=== PATIENT | female | born 1980 | race Caucasian/White ===

== ENCOUNTER → 2016-12-13 22:10 | Outpatient (CLI) | payer BC, SELFPAY | END | disposition home or self-care (01) | PROVIDERS: Family Provider Family Medicine; PCP Family Medicine; Visit Provider Obstetrics & Gynecology | DX: O47.9 False labor, unspecified (principal) ==

== ENCOUNTER 2017-06-01 20:27 | Emergency (ER) | payer BC, SELFPAY ==
[2017-06-01 20:30] VITALS: BP 126/85; PULSE 109; RESP 16; TEMP 36.6; O2SAT 99; BMI 33.8
--- NOTE | 2017-06-01 22:16 | ED.DCSUM_ITS ---
- ER Visit Summary Date of Service: 06/01/17 Chief Complaint: Right leg wound History of Present Illness: The patient is a 36 F who states that she has a wound on her right leg. It has been there for 3 days. There has been some drainage from it. She denies any significant redness. She has not had a fever. She states that she is currently she is not quite sure how far along she is. No history of abscesses in the past. Physical Examination: Vital signs reviewed. Right leg exam reveals a circular area of crusting and slight serous drainage on the medial right calf. There is no significant surrounding erythema. No lymphangitic streaking. No abscess formation Test Results: None indicated Emergency Department Course and Treatment: This appears to be some impetigo on the right leg. It does not appear to be ringworm there is no central clearing. I will put her on Bactroban topical for this area. She will keep it clean and dry. She sees her physician tomorrow Treatment Plan: [] Disposition: Discharge Impression: Right leg impetigo This note was generated with [employer] dictation software. It may contain incorrect words, spelling, and punctuation that were not noted in review of the chart prior to signing ED Disposition - Plan for ED Patient: Chief Complaint: Wound Referrals: Gagandeep Pendleton MD [Primary Care Provider] -
--- NOTE | 2017-06-01 22:16 | ED.DEP ---
ED Disposition - Plan for ED Patient: Disposition: Home or Assisted Living Chief Complaint: Wound Instructions: Understanding Impetigo (Adult) Prescriptions: Mupirocin [Bactroban] 1 applic TOPICAL TID #1 tube Referrals: Gagandeep Pendleton MD [Primary Care Provider] -
[2017-06-01 22:33] VITALS: BP 124/80; PULSE 89; RESP 16
== END 2017-06-01 22:34 | disposition home or self-care (01) ==
LOC: ED 22:26
PROVIDERS: Emergency Provider Emergency Medicine; Family Provider Family Medicine; PCP Family Medicine
DX: O26.899 Other specified pregnancy related conditions, unspecified trimester (principal); L01.00 Impetigo, unspecified; Z3A.00 Weeks of gestation of pregnancy not specified
CPT/HCPCS: 99282

== ENCOUNTER 2017-07-28 22:39 | Emergency (ER) | payer BC, SELFPAY ==
[2017-07-28 22:40] VITALS: BP 129/74; PULSE 102; RESP 16; TEMP 36.3; O2SAT 99; BMI 34.4
[2017-07-28 23:18] LABS: Bacteria 0 SEEN /hpf (None Seen); Mucous, Urine 0 SEEN /hpf (<or=2+); Red Blood Cells-Urine 0 SEEN /hpf (0-5); White Blood Cells 0 SEEN /hpf (0-5)
[2017-07-28 23:21] LABS: Color, Urine Yellow (Yellow); Glucose, Dipstick Normal (Normal); Ketone-Dipstick Negative (Negative); Leukocyte Esterase-Dipstick Negative /ul (Negative); Nitrite-Dipstick Negative (Negative); Occult Blood-Urine Negative /ul (Negative); Protein-Dipstick Negative (Negative); Specific Gravity, Urine 1.025 (1.002-1.030); Urine Bilirubin Dipstick Negative (Negative); Urine Clarity Clear (Clear); Urine Urobilinogen Normal (Normal)
[2017-07-28 23:28] LABS: Squamous Epithelial Cells - UA 0-5 SEEN /hpf (5-10)
--- NOTE | 2017-07-28 23:36 | ED.VISSUMM ---
- ER Visit Summary Date of Service: 07/28/17 Chief Complaint: [] low pelvic pain since this afternoon when she was working and picking things up. She is unsure if she strained her low abdominal muscles. She stated she pelvic cramps evening and thinks she might have urinated on herself and wanted to make sure she did not break her water. She denies any vaginal bleeding. No home treatment. She has been having normal ultrasounds. History of Present Illness: The patient is a 36 F [] Physical Examination: [] Vital signs reviewed General: Well-nourished well-developed Head: Normocephalic atraumatic Eyes: Pupils equal round and reactive to light extraocular movements intact ENT: TMs clear no hemotympanum no trauma Neck: Nontender full range of motion Cardiovascular: Regular rate rhythm no murmurs normal S1-S2 Respiratory: No distress clear to auscultation bilaterally chest nontender Abdomen: Soft mild suprapubic tenderness nondistended normal bowel sounds no masses Exam: Normal cervix and vagina. Mucous plug in place. No leakage of fluid. Back: Nontender no CVA tenderness Extremities: Nontender active range of motion ?4 extremities no trauma Skin: Normal color no trauma Neuro alert oriented cranial nerves II through XII intact normal strength sensation reflexes Test Results: [] Emergency Department Course and Treatment: [] Urine analysis showed nothing acute. heart tones 147. Patient did waiting for pain. She might just strained her lower pelvis. She will follow-up with her W[employer] F[employer] SUPPORT SPECIALIST. I do not feel she needs an emergent ultrasound. Treatment Plan: [] Disposition: [] Impression: [] Lower pelvic pain and This note was generated with [employer] dictation software. It may contain incorrect words, spelling, and punctuation that were not noted in review of the chart prior to signing ED Disposition - Plan for ED Patient: Chief Complaint: Referrals: Gagandeep Pendleton MD [Primary Care Provider] -
--- NOTE | 2017-07-28 23:38 | ED.DEP ---
ED Disposition - Plan for ED Patient: Disposition: Home or Assisted Living Chief Complaint: Instructions: ED Pelvic Pain Preg UKO 2 or 3 Tri Referrals: Gagandeep Pendleton MD [Primary Care Provider] - Dali Parrish [STAFF PHYSICIAN] -
[2017-07-28 23:47] VITALS: RESP 18
== END 2017-07-28 23:48 | disposition home or self-care (01) ==
PROVIDERS: Emergency Provider Emergency Medicine; Family Provider Family Medicine; PCP Family Medicine
DX: R10.2 Pelvic and perineal pain (principal); O26.892 Other specified pregnancy related conditions, second trimester; Z3A.18 18 weeks gestation of pregnancy
CPT/HCPCS: 81001; 99282

== ENCOUNTER 2017-08-09 17:08 | Emergency (ER) | payer BC, SELFPAY ==
[2017-08-09 17:11] VITALS: BP 126/79; PULSE 100; PULSE 91; RESP 18; TEMP 36.7; O2SAT 97; O2SAT 98; BMI 34.7
--- NOTE | 2017-08-09 17:48 | MRI_ITS ---
MR Brain W/O Contrast INDICATION: cva,lt sided visual field deficit, 19 wks preg COMPARISON: None TECHNIQUE: Multiplanar multisequence MRI examination of the brain without contrast. FINDINGS: There is no evidence of restricted diffusion to suggest acute ischemia/infarction. Ventricular system is normal in size and symmetric. Cortical sulci, sylvian fissures, and basal cisterns are well seen. Cole-white matter junction is normal. Midline structures and craniocervical junction are normal. The cerebellopontine angles are normal and symmetric. Supra-and infratentorial brain parenchyma demonstrates normal signal. There is no evidence of parenchymal microhemorrhage, mass effect or midline shift, or abnormal extra-axial collection. Flow-voids of the [place] vascularity are well seen. There is mild mucosal thickening in the left paranasal sinuses. No layering effusion. Mastoid air cells and middle ear cavities are clear. MRI/Brain without Contrast IMPRESSION: Normal noncontrast MRI examination of the brain. Mild paranasal sinus disease. at 2016 Reported and signed by: Alfreda Awad MD Electronically Signed: Alfreda Awad MD at 19:15 EDT Tel , Service support ,
--- NOTE | 2017-08-09 19:10 | MRI_ITS ---
MRV Head W/O Contrast INDICATION: cva,lt sided visual field deficit, 19 wks preg COMPARISON: None TECHNIQUE: MR venogram and 3-D [id number] technique with 3-D reformatted images. FINDINGS: There is normal flow related signal seen in the superior and inferior sagittal sinus, the straight sinus, and the transverse and sigmoid sinuses. MRI/MRV Head Without Contrast IMPRESSION: Examination is negative for dural venous sinus thrombosis. at 2029 Reported and signed by: Alfreda Awad MD Electronically Signed: Alfreda Awad MD at 19:27 EDT Tel , Service support ,
--- NOTE | 2017-08-09 20:33 | ED.VISSUMM ---
- ER Visit Summary Date of Service: 08/09/17 Chief Complaint: [] Vision loss History of Present Illness: The patient is a 36 F [] 19 week female complaining of left-sided visual field deficit after waking up from a nap. 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 She decided to take a nap and she reports that when she awoke she had a left-sided visual field deficit without any floaters. She denies eye pain, headache, dizziness, nausea/vomiting. No other complaints. Patient does report a previous history of preeclampsia for which she is currently taking aspirin during . Physical Examination: [] Afebrile, vital signs stable. To note BP was 126/79. 36-year-old female no acute distress. HEENT exam reveals pupils that are equal round and reactive to light, 3 mm, extraocular movements are intact. No nystagmus. No conjunctival injection. Visual acuity was within normal limits for both eyes despite the reported visual field loss, see nurse's notes. Cardiovascular exam is regular rate and rhythm. Lungs are clear to auscultation. Abdomen is gravid, soft, nontender. Test Results: [] MRI of the brain and MRV were negative for stroke or sinus venous thrombosis. Emergency Department Course and Treatment: [] Case discussed with the on-call sales account leader, Dr. Monzon. He felt that the history provided by the patient warranted immediate follow-up tomorrow morning in his office and that no immediate transfer to an sales account leader was necessary. We obtained an MRI and MRV of the brain and sinuses to rule out acute pathology and this returned negative. Patient was given the sales account leader coming information to set up an immediate appointment tomorrow morning. Treatment Plan: [] Follow-up tomorrow morning with sales account leader. Disposition: [] Discharge, stable. Impression: [] Left visual field deficit This note was generated with [employer] dictation software. It may contain incorrect words, spelling, and punctuation that were not noted in review of the chart prior to signing ED Disposition - Plan for ED Patient: Chief Complaint: Eye Problem Referrals: Gagandeep Pendleton MD [Primary Care Provider] -
--- NOTE | 2017-08-09 20:39 | ED.DCSUM_ITS ---
- ER Visit Summary Date of Service: 08/09/17 Chief Complaint: [] Vision loss History of Present Illness: The patient is a 36 F [] 19 week female complaining of left-sided visual field deficit after waking up from a nap. 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 She decided to take a nap and she reports that when she awoke she had a left-sided visual field deficit without any floaters. She denies eye pain, headache, dizziness, nausea/vomiting. No other complaints. Patient does report a previous history of preeclampsia for which she is currently taking aspirin during . Physical Examination: [] Afebrile, vital signs stable. To note BP was 126/79. 36-year-old female no acute distress. HEENT exam reveals pupils that are equal round and reactive to light, 3 mm, extraocular movements are intact. No nystagmus. No conjunctival injection. Visual acuity was within normal limits for both eyes despite the reported visual field loss, see nurse's notes. Cardiovascular exam is regular rate and rhythm. Lungs are clear to auscultation. Abdomen is gravid, soft, nontender. Test Results: [] MRI of the brain and MRV were negative for stroke or sinus venous thrombosis. Emergency Department Course and Treatment: [] Case discussed with the on-call deal architect, Dr. Monzon. He felt that the history provided by the patient warranted immediate follow-up tomorrow morning in his office and that no immediate transfer to an deal architect was necessary. We obtained an MRI and MRV of the brain and sinuses to rule out acute pathology and this returned negative. Patient was given the deal architect coming information to set up an immediate appointment tomorrow morning. Treatment Plan: [] Follow-up tomorrow morning with deal architect. Disposition: [] Discharge, stable. Impression: [] Left visual field deficit This note was generated with [employer] dictation software. It may contain incorrect words, spelling, and punctuation that were not noted in review of the chart prior to signing ED Disposition - Plan for ED Patient: Chief Complaint: Eye Problem Referrals: Gagandeep Pendleton MD [Primary Care Provider] -
--- NOTE | 2017-08-09 20:39 | ED.DEP ---
ED Disposition - Plan for ED Patient: Disposition: Home or Assisted Living Chief Complaint: Eye Problem Instructions: ED Double Vision Referrals: Gagandeep Pendleton MD [Primary Care Provider] - Portillo Monzon MD [STAFF PHYSICIAN] - Additional Instructions: See Dr. Monzon, microsoft bi consultant (eye surgeon), tomorrow morning for urgent evaluation.
[2017-08-09 20:46] VITALS: PULSE 100; O2SAT 100
== END 2017-08-09 20:47 | disposition home or self-care (01) ==
PROVIDERS: Emergency Provider Emergency Medicine; Family Provider Family Medicine; PCP Family Medicine
DX: H54.7 Unspecified visual loss (principal); O26.892 Other specified pregnancy related conditions, second trimester; Z3A.19 19 weeks gestation of pregnancy
CPT/HCPCS: 70544; 70551; 99283

== ENCOUNTER 2017-09-02 18:12 | Emergency (ER) | payer OTHER, BC, SELFPAY ==
[2017-09-02 18:13] VITALS: BP 135/82; PULSE 101; RESP 16; TEMP 36.9; O2SAT 98; BMI 35.9
--- NOTE | 2017-09-02 18:27 | RAD_ITS ---
STUDY: X-RAY - LEFT ANKLE REASON FOR EXAM: Female, 36 years old. Ankle pain after injury. TECHNIQUE: 3 view(s) of the ankle. COMPARISON: None. FINDINGS: Normal visualized distal tibia and fibula. Normal medial and lateral malleoli. Normal tibiotalar articulation and ankle mortise. Normal visualized talus and calcaneus. The visualized subtalar, talonavicular, calcaneocuboid and tarsal articulations are normal. There is no demonstrated fracture. There is minor soft tissue swelling. RAD/Ankle min 3 Views IMPRESSION: Minor soft tissue swelling, otherwise normal x-ray examination of the left ankle. Electronically Signed: Benito Muñoz MD at 19:18 EDT , Service support ,
--- NOTE | 2017-09-02 18:28 | RAD_ITS ---
STUDY: X-RAY - LEFT KNEE REASON FOR EXAM: Female, 36 years old. Knee pain after injury. TECHNIQUE: 4 view(s) of the knee. COMPARISON: None. FINDINGS: Normal visualized distal femur. Normal visualized proximal tibia and fibula. Normal patella. There is no demonstrated fracture. Normal medial femorotibial compartment. Normal lateral femorotibial compartment. Normal patellofemoral articulation. Normal proximal tibiofibular articulation. There is no significant joint effusion. There is mild peripatellar soft tissue swelling. RAD/Knee 4 or More Views IMPRESSION: Mild peripatellar soft tissue spine. No acute fracture of the left knee. Electronically Signed: Benito Muñoz MD at 19:20 EDT , Service support ,
--- NOTE | 2017-09-02 18:28 | RAD_ITS ---
STUDY: X-RAY - LEFT FOOT CLINICAL: Female, 36 years old. Left foot pain after injury. TECHNIQUE: 3 view(s) of the foot. COMPARISON: None. FINDINGS: Normal talus, calcaneus, and tarsal bones. Normal visualized subtalar, talonavicular, calcaneocuboid, tarsal and tarsometatarsal articulations. Normal metatarsi. Normal metatarsophalangeal joint of the great toe. Normal tibial and fibular sesamoid bones. Normal interphalangeal joint of the great toe. Normal phalanges of the great toe. Normal second through fifth metatarsophalangeal joints. Normal interphalangeal joints and phalanges of the lesser toes. The soft tissue structures are unremarkable. There is no demonstrated fracture. RAD/Foot min 3 Views IMPRESSION: Normal x-ray examination of the left foot. Electronically Signed: Benito Muñoz MD at 19:17 EDT , Service support ,
--- NOTE | 2017-09-02 18:32 | ED.VISSUMM ---
- ER Visit Summary Date of Service: 09/02/17 Chief Complaint: Left lower extremity injury History of Present Illness: The patient is a 36 F presenting with left lower extremity injury. Patient states she was at work and she got her left foot caught under a metal cart. She fell forward injuring her left foot, ankle, knee. She did not hit her head or lose consciousness. She is 23 weeks . She denies hitting her abdomen. She had no vaginal bleeding or abdominal pain. Denies other complaints. Physical Examination: Vitals are stable. Patient is afebrile. Alert no acute distress. HEENT exam is unremarkable. Neck is supple. Lungs are clear and equal bilaterally. Heart is regular rate and rhythm. Abdomen is soft gravid nontender Extremities left lateral foot and ankle tenderness, diffuse tenderness left knee, AFROM Skin is warm and dry. No focal neurologic deficit. Remainder of exam is unremarkable. Emergency Department Course and Treatment: Patient was given an ice pack. X-ray of the left foot, ankle, knee were obtained and show no acute process. Patient is advised to ice and elevate. Advised use Tylenol for pain. heart tones 148. Advised to follow-up with [facility] care. Advised return to ED for worsening complaints. Disposition: Discharge home Impression: Left foot, ankle sprain This note was generated with [employer] dictation software. It may contain incorrect words, spelling, and punctuation that were not noted in review of the chart prior to signing ED Disposition - Plan for ED Patient: Disposition: Home or Assisted Living Chief Complaint: Lower Extremity Injury Instructions: ED Sprain Foot Referrals: [facility] [GROUP OF PHYSICIANS] - Gagandeep Pendleton MD [Primary Care Provider] -
--- NOTE | 2017-09-02 19:25 | ED.DEP ---
ED Disposition - Plan for ED Patient: Chief Complaint: Lower Extremity Injury Instructions: ED Sprain Foot Referrals: Gagandeep Pendleton MD [Primary Care Provider] - [facility] [GROUP OF PHYSICIANS] -
[2017-09-02 19:40] VITALS: BP 124/76
== END 2017-09-02 19:41 | disposition home or self-care (01) ==
LOC: ED 18:32
PROVIDERS: Emergency Provider Emergency Medicine; Family Provider Family Medicine; PCP Family Medicine
DX: O26.892 Other specified pregnancy related conditions, second trimester (principal); S93.402A Sprain of unspecified ligament of left ankle, initial encounter; W23.0XXA Caught, crushed, jammed, or pinched between moving objects, initial encounter; Y93.9 Activity, unspecified; Y92.89 Other specified places as the place of occurrence of the external cause; Y99.0 Civilian activity done for income or pay; Z3A.23 23 weeks gestation of pregnancy; Z87.891 Personal history of nicotine dependence
CPT/HCPCS: 73564; 73610; 73630; 99283

== ENCOUNTER 2017-10-27 20:20 | Outpatient (CLI) | payer BC, SELFPAY ==
[2017-10-27 20:55] LABS: Bacteria 0 SEEN /hpf (None Seen); Mucous, Urine 0 SEEN /hpf (<or=2+); Red Blood Cells-Urine 0 SEEN /hpf (0-5); White Blood Cells 0 SEEN /hpf (0-5)
[2017-10-27 20:57] LABS: Color, Urine Yellow (Yellow); Glucose, Dipstick Normal (Normal); Ketone-Dipstick Negative (Negative); Leukocyte Esterase-Dipstick Negative /ul (Negative); Nitrite-Dipstick Negative (Negative); Occult Blood-Urine Negative /ul (Negative); Protein-Dipstick Negative (Negative); Specific Gravity, Urine 1.015 (1.002-1.030); Urine Bilirubin Dipstick Negative (Negative); Urine Clarity Sl. Cloudy (Clear); Urine Urobilinogen Normal (Normal); Urine pH 6.5 (5.0 - 8.0)
[2017-10-27 21:03] LABS: Squamous Epithelial Cells - UA 0-5 SEEN /hpf (5-10)
[2017-10-27] MEDS: 0.9% Normal Saline 1,000 ML 999 ML IV (21:25)
[2017-10-27 21:40] LABS: ROM Internal Control Test YES-OK TO RESULT pt. (Internal QC); ROM Patient Test Negative (Negative)
[2017-10-27 21:43] VITALS: BMI 38.5
[2017-10-27 21:49] LABS: Fetal Fibronectin Negative
[2017-10-27 21:55] LABS: Absolute Neutrophil Count 8.8 X10^3/uL (2.0-7.7); Basophil# 0.01 X10^3/uL; Basophil% 0.1 % (0-1); Eosinophil# 0.13 X10^3/uL; Eosinophils% 1.1 % (0-5); Hematocrit 31.7 % (37-47); Hemoglobin 10.7 g/dl (12.0-15.0); Lymphocyte % 18.2 % (19-41); Mean Corp Hgb Conc 33.8 g/gl (32-36); Mean Corpuscular Hgb 31.2 pg (27.0-32.0); Mean Corpuscular Volume 92.4 fL (81-99); Mean Platelet Vol. 10.1 fl (6.2-12.0); Monocyte# 0.92 X10^3/uL; Monocyte% 7.6 % (0-10); Neutrophil # 8.82 X10^3/uL (2.7-7.7); Neutrophil % 72.9 % (47-70); POSITIVE COUNT NO; POSITIVE DIFFERENTIAL NO; POSITIVE MORPHOLOGY NO; Platelet Count 265 K/mm3 (150-450); RBC Distribution Width CV 12.8 % (11.6-14.6); RBC Distribution Width SD 43.3 fl (35.1-43.9); Red Blood Count 3.43 M/mm3 (4.2-5.4); White Blood Count 12.1 K/mm3 (4.4-11.0)
[2017-10-27 21:56] LABS: Fibrinogen 459 mg/dl (203-444)
[2017-10-27] MEDS: Terbutaline 1 MG/ML Vial 0.25 MG SC (22:41)
--- NOTE | 2017-10-28 01:19 | OB.TRI.NOTE ---
History of Present Illness Date of Service: 10/27/17 Was patient seen by the physician?: No Reason For Visit: R/O LABOR Date of Service: 10/27/17 Final DANITZA: 12/31/17 Gestational age: 30 Weeks and 6 Days History of Present Illness: 37yo @ 30.6 wks c/o contractions and vaginal pain Allergies amoxicillin Allergy (Verified 09/21/17 09:47) Hives calamine Allergy (Verified 09/21/17 09:47) Rash coconut oil Allergy (Verified 09/21/17 09:47) Rash erythromycin base [Erythromycin Base] Allergy (Verified 09/21/17 09:47) Hives fentanyl Allergy (Verified 10/27/17 22:51) Other seizures ferrous sulfate Allergy (Verified 10/27/17 21:49) Anaphylaxis latex Allergy (Verified 10/27/17 21:49) Rash onion Allergy (Verified 10/27/17 21:49) swollen tongue Penicillins Allergy (Verified 09/21/17 09:47) Hives tobramycin Allergy (Verified 09/21/17 09:47) Other burning, redness atomoxetine [From Strattera] Adverse Reaction (Verified 09/21/17 09:47) Other anal bleeding diphenhydramine HCl [From Benadryl] Adverse Reaction (Verified 09/21/17 09:47) Chest tightness IV dose only, paranoia [employer] 40 FOOD DYE Allergy (Uncoded 10/27/17 21:49) Swelling - Pertinent Past Medical History Medical History: Past Medical History (Last Reviewed 09/21/17 @ 09:47 by Tati Jackson) Anemia Arthritis Asthma Incontinence Seizures Severe headache history of child NST - FHR Rate Baby A Baseline: 130 Variability:: Moderate Accelerations:: 15 x 15 Decelerations:: None NST Reactive:: Yes FHR Category:: Category I Uterine Activity:: 1-4 on arrival but irregular and spaced out after prolonged monitoring Impression/Plan 37yo @ 30.6 wks, contractions- not in labor 1) cervix closed/thick on two exams 2) IVF and Terbutaline x 1 given- for maternal pain due to contractions 3) Follow up in office thursday10/30/17- [place] [facility]
--- NOTE | 2017-10-28 01:22 | OB.TRI.HP_ITS ---
History of Present Illness Date of Service: 10/27/17 Was patient seen by the physician?: No Reason For Visit: R/O LABOR Date of Service: 10/27/17 Final DANITZA: 12/31/17 Gestational age: 30 Weeks and 6 Days History of Present Illness: 37yo @ 30.6 wks c/o contractions and vaginal pain Allergies amoxicillin Allergy (Verified 09/21/17 09:47) Hives calamine Allergy (Verified 09/21/17 09:47) Rash coconut oil Allergy (Verified 09/21/17 09:47) Rash erythromycin base [Erythromycin Base] Allergy (Verified 09/21/17 09:47) Hives fentanyl Allergy (Verified 10/27/17 22:51) Other seizures ferrous sulfate Allergy (Verified 10/27/17 21:49) Anaphylaxis latex Allergy (Verified 10/27/17 21:49) Rash onion Allergy (Verified 10/27/17 21:49) swollen tongue Penicillins Allergy (Verified 09/21/17 09:47) Hives tobramycin Allergy (Verified 09/21/17 09:47) Other burning, redness atomoxetine [From Strattera] Adverse Reaction (Verified 09/21/17 09:47) Other anal bleeding diphenhydramine HCl [From Benadryl] Adverse Reaction (Verified 09/21/17 09:47) Chest tightness IV dose only, paranoia [place] 40 FOOD DYE Allergy (Uncoded 10/27/17 21:49) Swelling - Pertinent Past Medical History Medical History: Past Medical History (Last Reviewed 09/21/17 @ 09:47 by Tati Jackson) Anemia Arthritis Asthma Incontinence Seizures Severe headache history of child NST - FHR Rate Baby A Baseline: 130 Variability:: Moderate Accelerations:: 15 x 15 Decelerations:: None NST Reactive:: Yes FHR Category:: Category I Uterine Activity:: 1-4 on arrival but irregular and spaced out after prolonged monitoring Impression/Plan 37yo @ 30.6 wks, contractions- not in labor 1) cervix closed/thick on two exams 2) IVF and Terbutaline x 1 given- for maternal pain due to contractions 3) Follow up in office thursday10/30/17- [place] [facility]
== END 2017-10-28 00:40 | disposition home or self-care (01) ==
LOC: WPOUT 20:29 → WP 20:31
PROVIDERS: Family Provider Family Medicine; PCP Family Medicine; Visit Provider Obstetrics & Gynecology
DX: O26.893 Other specified pregnancy related conditions, third trimester (principal); N85.8 Other specified noninflammatory disorders of uterus; Z3A.30 30 weeks gestation of pregnancy
CPT/HCPCS: 36415; 59025; 59050; 81001; 82731; 84112; 85025; 85384; 96372; 99218; J7030; A4216; G0378

== ENCOUNTER 2017-10-30 18:15 | Outpatient (CLI) | payer BC, SELFPAY ==
[2017-10-30 18:33] VITALS: BMI 39.6
--- NOTE | 2017-10-30 19:05 | OB.TRI.NOTE ---
History of Present Illness Date of Service: 10/30/17 Was patient seen by the physician?: Yes Reason For Visit: R/O LABOR Date of Service: 10/30/17 Gestational age: 31.1 History of Present Illness: 37yo @ 31.1 wks c/o contractions- reports they increased today - pt reports no bleeding or LOF. Pt reports was told that she had increased amniotic fluid and that was why she was having contractions. pt offers no other concerns today. Allergies amoxicillin Allergy (Verified 09/21/17 09:47) Hives calamine Allergy (Verified 09/21/17 09:47) Rash coconut oil Allergy (Verified 10/30/17 18:34) Rash erythromycin base [Erythromycin Base] Allergy (Verified 10/30/17 18:34) Hives fentanyl Allergy (Verified 10/30/17 18:34) Other seizures ferrous sulfate Allergy (Verified 10/30/17 18:34) Anaphylaxis latex Allergy (Verified 10/30/17 18:34) Rash onion Allergy (Verified 10/30/17 18:34) swollen tongue Penicillins Allergy (Verified 10/30/17 18:34) Hives tobramycin Allergy (Verified 10/30/17 18:34) Other burning, redness atomoxetine [From Strattera] Adverse Reaction (Verified 10/30/17 18:34) Other anal bleeding diphenhydramine HCl [From Benadryl] Adverse Reaction (Verified 10/30/17 18:34) Chest tightness IV dose only, paranoia [place] 40 FOOD DYE Allergy (Uncoded 10/30/17 18:34) Swelling - Pertinent Past Medical History Medical History: Past Medical History (Last Reviewed 09/21/17 @ 09:47 by Tati Jackson) Anemia Arthritis Asthma Incontinence Seizures Severe headache history of child Physical Exam General: Alert, Oriented x3 Abdomen: Soft, Non Tender, Gravid, - - contractions palpate very mild Neurological: Cranial nerves II-XII grossly intact 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
--- NOTE | 2017-10-30 19:13 | OB.TRI.HP_ITS ---
History of Present Illness Date of Service: 10/30/17 Was patient seen by the physician?: Yes Reason For Visit: R/O LABOR Date of Service: 10/30/17 Gestational age: 31.1 History of Present Illness: 37yo @ 31.1 wks c/o contractions- reports they increased today - pt reports no bleeding or LOF. Pt reports was told that she had increased amniotic fluid and that was why she was having contractions. pt offers no other concerns today. Allergies amoxicillin Allergy (Verified 09/21/17 09:47) Hives calamine Allergy (Verified 09/21/17 09:47) Rash coconut oil Allergy (Verified 10/30/17 18:34) Rash erythromycin base [Erythromycin Base] Allergy (Verified 10/30/17 18:34) Hives fentanyl Allergy (Verified 10/30/17 18:34) Other seizures ferrous sulfate Allergy (Verified 10/30/17 18:34) Anaphylaxis latex Allergy (Verified 10/30/17 18:34) Rash onion Allergy (Verified 10/30/17 18:34) swollen tongue Penicillins Allergy (Verified 10/30/17 18:34) Hives tobramycin Allergy (Verified 10/30/17 18:34) Other burning, redness atomoxetine [From Strattera] Adverse Reaction (Verified 10/30/17 18:34) Other anal bleeding diphenhydramine HCl [From Benadryl] Adverse Reaction (Verified 10/30/17 18:34) Chest tightness IV dose only, paranoia [place] 40 FOOD DYE Allergy (Uncoded 10/30/17 18:34) Swelling - Pertinent Past Medical History Medical History: Past Medical History (Last Reviewed 09/21/17 @ 09:47 by Tati Jackson) Anemia Arthritis Asthma Incontinence Seizures Severe headache history of child Physical Exam General: Alert, Oriented x3 Abdomen: Soft, Non Tender, Gravid, - - contractions palpate very mild Neurological: Cranial nerves II-XII grossly intact 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
[2017-10-30 20:24] VITALS: RESP 18
--- NOTE | 2017-10-31 08:14 | PCM.PN.BLA ---
Progress Note pt was then discharged home approx 1hour later - states she was feeling better and contractions were improving. Pt comfortable going home.
== END 2017-10-30 20:24 | disposition home or self-care (01) ==
LOC: WPOUT 18:27 → WP 18:28
PROVIDERS: Family Provider Family Medicine; PCP Family Medicine; Visit Provider Obstetrics & Gynecology
DX: O36.63X0 Maternal care for excessive fetal growth, third trimester, not applicable or unspecified (principal); Z3A.31 31 weeks gestation of pregnancy
CPT/HCPCS: 59025; 59050; 99218; G0378

== ENCOUNTER 2017-11-05 19:28 | Emergency (ER) | payer BC, SELFPAY ==
[2017-11-05 19:32] VITALS: BP 131/83; PULSE 106; PULSE 116; RESP 17; RESP 18; TEMP 36.6; O2SAT 97; O2SAT 98; BMI 39.3
--- NOTE | 2017-11-05 20:46 | EKG12_ITS ---
Test Reason : PALPITATIONS Blood Pressure : / mmHG Vent. Rate : 116 BPM Atrial Rate : 116 BPM P-R Int : 144 ms QRS Dur : 072 ms QT Int : 330 ms P-R-T Axes : 013 003 000 degrees QTc Int : 458 ms Sinus tachycardia Otherwise normal ECG Confirmed by TONYA BRICEÑO, KISHA ([id number]), film editor supervisor NEAL DE LEON ([id number]) on 11/09/2017 2:59:17 PM Referred By: CATALINA Confirmed By:KISHA CASTANEDA MD
--- NOTE | 2017-11-05 20:55 | RAD_ITS ---
STUDY: X-RAY CHEST REASON FOR EXAM: Female, 37 years old. SOB Dyspnea TECHNIQUE: Single AP portable view of the chest. COMPARISON: January 21, 2015 FINDINGS: The lungs are clear and expanded. There is no demonstrated pleural abnormality. There is mild cardiac enlargement. Normal mediastinum and aime. Normal visualized pulmonary arteries. Normal visualized aortic arch and descending thoracic aorta. Normal visualized thoracic spine. Normal visualized ribs, clavicles, and shoulders. There is no demonstrated abnormality of the visualized soft tissue structures of the upper abdomen. RAD/Chest 1 View (Portable) IMPRESSION: Stable cardiomegaly Electronically Signed: Damaso De La Fuente MD at 21:11 EDT , Service support ,
[2017-11-05 20:58] LABS: Absolute Lymphocyte Count 1.88 X10^3/ul (0.83-4.51); Absolute Neutrophil Count 7.8 X10^3/uL (2.0-7.7); Basophil# 0.01 X10^3/uL; Basophil% 0.1 % (0-1); Eosinophil# 0.08 X10^3/uL; Eosinophils% 0.7 % (0-5); Hematocrit 33.4 % (37-47); Hemoglobin 11.2 g/dl (12.0-15.0); Lymphocyte # 1.88 X10^3/ul (4.0); Mean Corp Hgb Conc 33.5 g/gl (32-36); Mean Corpuscular Hgb 31.2 pg (27.0-32.0); Mean Platelet Vol. 10.1 fl (6.2-12.0); Monocyte# 1.29 X10^3/uL; Monocyte% 11.7 % (0-10); Neutrophil # 7.78 X10^3/uL (2.7-7.7); Neutrophil % 70.4 % (47-70); Platelet Count 275 K/mm3 (150-450); RBC Distribution Width CV 13.1 % (11.6-14.6); RBC Distribution Width SD 44.3 fl (35.1-43.9); Red Blood Count 3.59 M/mm3 (4.2-5.4); White Blood Count 11.1 K/mm3 (4.4-11.0)
[2017-11-05 21:00] LABS: POSITIVE COUNT NO; POSITIVE DIFFERENTIAL NO; POSITIVE MORPHOLOGY NO
[2017-11-05 21:14] LABS: Mucous, Urine 0 SEEN /hpf (<or=2+); Red Blood Cells-Urine 0 SEEN /hpf (0-5)
[2017-11-05 21:16] LABS: ALB/GLOB Ratio 0.6 RATIO (0.9-2.4); AST(SGOT) 10 U/L (15-37); Alanine Aminotransfer ALT/SGPT 15 U/L (13-56); Albumin, Serum 2.4 g/dL (3.2-5.0); Alkaline Phosphatase 71 U/L (45-117); Anion Gap 9 (5-15); BUN 5 mg/dL (7-18); BUN/Creat Ratio 6.9 RATIO (10-20); Calcium,Total 8.4 mg/dL (8.5-10.1); Chloride 110 mmol/L (98-107); Creatinine, Serum 0.72 mg/dL (0.55-1.02); EST Glomerular Filtration Rate 97 mL/min (>60); Est Glom Filt Rate - Afr Amer 118 mL/min (>60); Estimated Creatinine Clearance 106.05 ml/min; Globulin 3.9 g/dL (2.2-4.2); Glucose 96 mg/dL (74-106); Potassium 3.4 mmol/L (3.5-5.1); Protein, Total 6.3 g/dL (6.4-8.2); Sodium Level 142 mmol/L (136-145); Thyroid Stim Hormone (TSH) 1.34 uIU/mL (0.358-3.74)
[2017-11-05 21:33] LABS: Color, Urine Yellow (Yellow); Glucose, Dipstick Normal (Normal); Ketone-Dipstick Negative (Negative); Leukocyte Esterase-Dipstick 100 /ul (Negative); Nitrite-Dipstick Negative (Negative); Occult Blood-Urine Negative /ul (Negative); Protein-Dipstick 15 mg/dl (Negative); Urine Bilirubin Dipstick Negative (Negative); Urine Clarity Cloudy (Clear); Urine Urobilinogen Normal (Normal)
[2017-11-05 21:43] LABS: Squamous Epithelial Cells - UA 0-5 SEEN /hpf (5-10); White Blood Cells 0-5 SEEN /hpf (0-5)
[2017-11-05 21:44] LABS: Amorphous Sediment 1+; Bacteria 1+ /hpf (None Seen)
--- NOTE | 2017-11-05 22:35 | ED.DCSUM_ITS ---
- ER Visit Summary Date of Service: 11/05/17 Chief Complaint: Palpitations History of Present Illness: The patient is a [address] Gagandeep Pendleton and Dr. Parrish. She is a at 32 weeks and 0 days . She reports that she has palpitations began approximately 3:00 this afternoon. She denies any chest pain. She reports that her heart rate feels fast. Is not irregular. States that it has made her slightly short of breath. She is lightheaded. This increases with standing. She has not passed out. She does not drink caffeine. She has not been taking any decongestants. Patient reports that she had a normal stress test this morning that was unremarkable. She has had normal movement. No vaginal bleeding or discharge. Physical Examination: Vitals: 97.9, 131/83, 116, 21, 100% room air which is not hypoxic. General: Well-nourished and well-developed. Head: Normocephalic atraumatic. Neck: Supple, no lymphadenopathy. No JVD. Nontender. Cardiovascular: Tachycardic regular rhythm. No murmurs. Respiratory: No respiratory distress. Clear to auscultation bilaterally. Abdominal: Soft, nontender, nondistended, normal bowel sounds. No guarding, rebound, or peritoneal signs. Gravid uterus. Back: Nontender. Extremities: Nontender, no edema. Skin: Normal color, no rash. Neurologic: Alert and oriented ?3. Cranial nerves II through XII are intact. Normal strength and sensation. Psych: Normal affect. Test Results: Chest x-ray shows stable cardia megaly and a poor inspiration. EKG sinus tachycardia 116. Is unchanged from 2015. CBC is more for a white count of 11.1, H&H 11.2 and 33.4, lymphocytes 17, monocytes of 12. Chem-7 marked potassium 3.4, chloride 110, BUN of 5, calcium 8.4. LFTs marked total protein is 6.3 and albumin 2.4. AST is 10. Total bili is 0.1. TSH is 1.34. Uric acid is normal. UA does have 15 protein. No evidence of infection. Troponin is negative. Emergency Department Course and Treatment: Patient given a 500 cc bolus of normal saline. Heart rate is come down into the 90s. Her blood pressure remains 120/88. She is resting comfortably and feels improved. Treatment Plan: Patient was discussed with Dr. Mcdonald. She will be discharged instructions to follow-up them next week as previously scheduled. Follow-up with Dr. Bruno as needed. Return to the emergency department for any worsening symptoms. Disposition: To home in improved and stable condition. Impression: 1. Palpitations. 2. Sinus tachycardia. 3. Third trimester . This note was generated with [employer] dictation software. It may contain incorrect words, spelling, and punctuation that were not noted in review of the chart prior to signing ED Disposition - Plan for ED Patient: Disposition: Home or Assisted Living Chief Complaint: Palpitations Instructions: ED Palpitations Referrals: Gagandeep Pendleton MD [Primary Care Provider] - As Needed Dali Parrish [STAFF PHYSICIAN] - Keep Umair appointment
[2017-11-05 23:27] VITALS: BP 133/84; PULSE 51; RESP 18; O2SAT 94
== END 2017-11-05 23:28 | disposition home or self-care (01) ==
PROVIDERS: Emergency Provider Emergency Medicine; Family Provider Family Medicine; PCP Family Medicine
DX: O26.893 Other specified pregnancy related conditions, third trimester (principal); R00.2 Palpitations; R00.0 Tachycardia, unspecified; Z3A.32 32 weeks gestation of pregnancy; Z87.891 Personal history of nicotine dependence
CPT/HCPCS: 71045; 80053; 81001; 84443; 84484; 84550; 85025; 93005; 99285; J7030; J7040; A4216

== ENCOUNTER 2017-11-18 23:10 | Outpatient (CLI) | payer BC, SELFPAY ==
[2017-11-19 00:18] VITALS: BMI 41.1
[2017-11-19] MEDS: Lactated Ringers 500 ML 125 ML IV (01:30)
[2017-11-19 01:42] LABS: Glucose, Dipstick Normal (Normal); Leukocyte Esterase-Dipstick 25 /ul (Negative); Mucous, Urine 0 SEEN /hpf (<or=2+); Nitrite-Dipstick Negative (Negative); Occult Blood-Urine Negative /ul (Negative); Protein-Dipstick Negative (Negative); Red Blood Cells-Urine 0 SEEN /hpf (0-5); Urine Bilirubin Dipstick Negative (Negative); Urine Urobilinogen Normal (Normal)
[2017-11-19 01:44] LABS: Color, Urine Yellow (Yellow); Ketone-Dipstick 150 mg/dl (Negative); Urine Clarity Clear (Clear)
[2017-11-19 01:48] LABS: Bacteria 1+ /hpf (None Seen); Squamous Epithelial Cells - UA 5-10 SEEN /hpf (5-10); White Blood Cells 0-5 SEEN /hpf (0-5)
[2017-11-19] MEDS: Acetaminophen 500 MG Tablet 1000 MG PO (01:56)
--- NOTE | 2017-11-19 08:16 | OB.TRI.NOTE ---
- Problem List (1) contractions Status: Acute (2) Polyhydramnios affecting in third trimester Status: Acute History of Present Illness Date of Service: 11/19/17 Was patient seen by the physician?: No Reason For Visit: R/O LABOR Date of Service: 11/19/17 Final DANITZA: 12/31/17 Final DANITZA Source: US <20 weeks Gestational age: 34 Weeks and 0 Days History of Present Illness: Patient presents to triage reporting onset of contractions about 20-30 minutes before arrival. Contractions irregular but are consistently 2-4 minutes apart and are painful. Patient denies SROM, denies VB, denies DFM. Allergies amoxicillin Allergy (Verified 11/05/17 19:32) Hives calamine Allergy (Verified 11/05/17 19:32) Rash coconut oil Allergy (Verified 11/05/17 19:32) Rash erythromycin base [Erythromycin Base] Allergy (Verified 11/05/17 19:32) Hives fentanyl Allergy (Verified 11/05/17 19:32) Other seizures ferrous sulfate Allergy (Verified 11/05/17 19:32) Anaphylaxis latex Allergy (Verified 11/05/17 19:32) Rash onion Allergy (Verified 11/05/17 19:32) swollen tongue Penicillins Allergy (Verified 11/05/17 19:32) Hives tobramycin Allergy (Verified 11/05/17 19:32) Other burning, redness atomoxetine [From Strattera] Adverse Reaction (Verified 11/05/17 19:32) Other anal bleeding diphenhydramine HCl [From Benadryl] Adverse Reaction (Verified 11/05/17 19:32) Chest tightness IV dose only, paranoia [place] 40 FOOD DYE Allergy (Uncoded 11/19/17 00:31) Anaphylaxis - Pertinent Past Medical History Medical History: Past Medical History (Last Reviewed 09/21/17 @ 09:47 by Tati Jackson) Anemia Arthritis Asthma Incontinence Seizures Severe headache history of child Physical Exam Vitals: See nursing notes for vitals and assessment Presentation: Cephalic Cervix Dilation (cm): 1.5 - Exam done by LISY Akbar Station: -3 Effacement (%): 20 NST - FHR Rate Baby A Baseline: 130 Variability:: Moderate Accelerations:: 15 x 15 Decelerations:: None NST Reactive:: Yes, Appropriate for gestational age FHR Category:: Category I Uterine Activity:: Ctx q 2-5 minutes, lasting 30-60 seconds Impression/Plan 37 y/o @ 34 weeks, Contractions, Polyhydramnios P: 1) Consultation with Dr. Brizuela - anticipate discharge to home if no cervical change noted after hydration 2) IV hydration by LR 500cc bolus - then at 125 ml/hr 3) Anticipate discharge to home if no cervical change as cervix is same as was noted in office. Steph Antony APRN-CESAR
== END 2017-11-19 02:55 | disposition home or self-care (01) ==
LOC: WPOUT 23:38 → WP 23:39
PROVIDERS: Family Provider Family Medicine; PCP Family Medicine; Visit Provider Obstetrics & Gynecology
DX: O60.03 Preterm labor without delivery, third trimester (principal); O40.3XX0 Polyhydramnios, third trimester, not applicable or unspecified; O99.513 Diseases of the respiratory system complicating pregnancy, third trimester; J45.909 Unspecified asthma, uncomplicated; O99.353 Diseases of the nervous system complicating pregnancy, third trimester; G40.909 Epilepsy, unspecified, not intractable, without status epilepticus; O99.89 Other specified diseases and conditions complicating pregnancy, childbirth and the puerperium; M19.90 Unspecified osteoarthritis, unspecified site; Z3A.34 34 weeks gestation of pregnancy
CPT/HCPCS: 59025; 59050; 81001; 99218; J7120; G0378

== ENCOUNTER 2017-11-21 16:13 | Outpatient (CLI) | payer BC, SELFPAY ==
[2017-11-21 16:14] VITALS: BP 126/78; PULSE 97; RESP 16; TEMP 37.2; O2SAT 97; BMI 40.2
[2017-11-21 17:14] LABS: Absolute Lymphocyte Count 2.54 X10^3/ul (0.83-4.51); Absolute Neutrophil Count 8.4 X10^3/uL (2.0-7.7); Basophil# 0.02 X10^3/uL; Basophil% 0.2 % (0-1); Eosinophil# 0.02 X10^3/uL; Eosinophils% 0.2 % (0-5); Hematocrit 30.6 % (37-47); Hemoglobin 9.9 g/dl (12.0-15.0); Lymphocyte # 2.54 X10^3/ul (4.0); Lymphocyte % 21.1 % (19-41); Mean Corp Hgb Conc 32.4 g/gl (32-36); Mean Corpuscular Hgb 30.8 pg (27.0-32.0); Mean Corpuscular Volume 95.3 fL (81-99); Mean Platelet Vol. 10.3 fl (6.2-12.0); Monocyte# 1.06 X10^3/uL; Monocyte% 8.8 % (0-10); Neutrophil # 8.38 X10^3/uL (2.7-7.7); Neutrophil % 69.4 % (47-70); Platelet Count 249 K/mm3 (150-450); RBC Distribution Width CV 13.3 % (11.6-14.6); RBC Distribution Width SD 46.4 fl (35.1-43.9); Red Blood Count 3.21 M/mm3 (4.2-5.4); White Blood Count 12.1 K/mm3 (4.4-11.0)
[2017-11-21 17:15] LABS: POSITIVE COUNT NO; POSITIVE DIFFERENTIAL NO; POSITIVE MORPHOLOGY NO
[2017-11-21 17:26] LABS: Anion Gap 8 (5-15); BUN 7 mg/dL (7-18); BUN/Creat Ratio 10.8 RATIO (10-20); Calcium,Total 8.4 mg/dL (8.5-10.1); Chloride 111 mmol/L (98-107); Creatinine, Serum 0.65 mg/dL (0.55-1.02); EST Glomerular Filtration Rate 111 mL/min (>60); Est Glom Filt Rate - Afr Amer 134 mL/min (>60); Estimated Creatinine Clearance 113.09 ml/min; Glucose 94 mg/dL (74-106); Sodium Level 141 mmol/L (136-145)
[2017-11-21 17:40] LABS: D-Dimer Quantitative (DVT/PE) 1.98 FEU/ug/m (0.27-0.49)
--- NOTE | 2017-11-21 17:51 | ED.DCSUM_ITS ---
- ER Visit Summary Date of Service: 11/21/17 Chief Complaint: Right arm pain History of Present Illness: The patient is a 37 F who presents with 1 day of aching right upper arm pain. She also noticed some redness and it feels warm to the touch. She did not have any injury. No laceration or scratch or abrasion. No history of prior similar symptoms. She is 34 weeks . She denies any chest pain or shortness of breath. No fevers or vomiting. She denies vaginal bleeding vaginal discharge or loss of fluids. She does continue to note movement. Physical Examination: Afebrile vitals are normal Heart regular rate and rhythm Lungs are clear There is some mild erythema and warmth to the touch of the right upper posterior arm no lymphangitic streaking no soft tissue swelling brisk capillary refill normal sensation light touch and an easily palpable radial pulse Test Results: heart tones 142. Labs notable for white blood cell count 12.1, hemoglobin 9.9. Potassium is 3.0. D-dimer 1.98. Emergency Department Course and Treatment: D-dimer was obtained as if negative would rule out DVT. However this may also be elevated so this certainly does not rule in DVT. Her potassium was replaced orally. I spoke to Dr. Brizuela who is on-call for the patient's OB and is familiar with the patient. She would prefer to defer on anticoagulation at this time and just obtaining the right upper extremity ultrasound tomorrow. I will arrange for this. Patient understands to return for new or worsening symptoms. She is instructed on specific signs and symptoms to monitor for. Treatment Plan: [] Disposition: Discharge Impression: Elevated d-dimer Hypokalemia Right arm pain This note was generated with [employer] dictation software. It may contain incorrect words, spelling, and punctuation that were not noted in review of the chart prior to signing ED Disposition - Plan for ED Patient: Chief Complaint: Cellulitis Referrals: Gagandeep Pendleton MD [Primary Care Provider] -
--- NOTE | 2017-11-21 17:51 | ED.DEP ---
ED Disposition - Plan for ED Patient: Chief Complaint: Cellulitis Instructions: ED Muscle Aching, ED Potassium Deficiency Referrals: Gagandeep Pendleton MD [Primary Care Provider] - Dali Parrish [STAFF PHYSICIAN] -
[2017-11-21 18:06] VITALS: BP 132/78; PULSE 82; RESP 16; O2SAT 98
--- NOTE | 2017-11-22 12:33 | VDUE_ITS ---
Reason For Study: PAIN Right Proximal Right jugular vein is spontaneous, widely patent, phasic, with no intraluminal echogenicity noted. Right subclavian vein is spontaneous, widely patent, phasic, with no intraluminal echogenicity noted. Right Lower Arm Right radial vein is compressible. Right ulnar vein is compressible. Right Arm Right axillary vein is spontaneous, patent, phasic, competent, compressible and demonstrates augmentation. Right brachial vein is compressible. Right cephalic vein is compressible. Right basilic vein is compressible. < Interpretation Summary Deep veins of the right upper extremity are patent and compressible segmentally. There is no evidence of deep vein thrombosis. The superficial veins of the right upper extremity, the basilic and cephalic veins, are patent and compressible. There is no evidence of right upper extremity superficial thrombophlebitis involving the veins imaged. Ordering Physician: Chava Gutiérrez Referring Physician: Dr. Parrish Performed By: Jamar Partida RVT ??? Reason For Study: PAIN < Interpretation Summary Ordering Physician: Chava Gutiérrez Referring Physician: Dr. Parrish Performed By: Jamar Partida RVT
== END 2017-11-22 12:06 ==
LOC: ED 17:16 → VL 11-22 12:08
PROVIDERS: Emergency Provider Emergency Medicine; Family Provider Family Medicine; PCP Family Medicine; Visit Provider Obstetrics & Gynecology
DX: O26.893 Other specified pregnancy related conditions, third trimester (principal); M79.601 Pain in right arm; E87.6 Hypokalemia; R74.8 Abnormal levels of other serum enzymes; Z3A.34 34 weeks gestation of pregnancy
CPT/HCPCS: 80048; 85025; 85379; 93971; 99283; A4216

== ENCOUNTER 2017-11-24 19:42 | Outpatient (CLI) | payer BC, SELFPAY ==
[2017-11-24 21:14] VITALS: BMI 41.5
--- NOTE | 2017-11-26 12:54 | OB.TRI.NOTE ---
History of Present Illness Reason For Visit: Decreased FM Date of Service: 11/24/17 Final DANITZA: 12/31/17 Final DANITZA Source: US <20 weeks Gestational age: 35 Weeks and 0 Days Allergies amoxicillin Allergy (Verified 11/21/17 16:17) Hives calamine Allergy (Verified 11/21/17 16:17) Rash coconut oil Allergy (Verified 11/21/17 16:17) Rash erythromycin base [Erythromycin Base] Allergy (Verified 11/21/17 16:17) Hives fentanyl Allergy (Verified 11/21/17 16:17) Other seizures ferrous sulfate Allergy (Verified 11/21/17 16:17) Anaphylaxis latex Allergy (Verified 11/24/17 21:25) Rash latex condom onion Allergy (Verified 11/21/17 16:17) swollen tongue Penicillins Allergy (Verified 11/21/17 16:17) Hives tobramycin Allergy (Verified 11/21/17 16:17) Other burning, redness atomoxetine [From Strattera] Adverse Reaction (Verified 11/21/17 16:17) Other anal bleeding diphenhydramine HCl [From Benadryl] Adverse Reaction (Verified 11/21/17 16:17) Chest tightness IV dose only, paranoia [place] 40 FOOD DYE Allergy (Uncoded 11/21/17 16:17) Anaphylaxis - Pertinent Past Medical History Medical History: Past Medical History (Last Reviewed 09/21/17 @ 09:47 by Tati Jackson) Anemia Arthritis Asthma Incontinence Seizures Severe headache history of child NST - FHR Rate Baby A Baseline: 140 Variability:: Minimal, Moderate Accelerations:: 15 x 15 Decelerations:: Variable NST Reactive:: Yes Uterine Activity:: irritability Impression/Plan Reactive NST for decreased FM
--- NOTE | 2017-11-26 12:57 | OB.TRI.HP_ITS ---
History of Present Illness Reason For Visit: Decreased FM Date of Service: 11/24/17 Final DANITZA: 12/31/17 Final DANITZA Source: US <20 weeks Gestational age: 35 Weeks and 0 Days Allergies amoxicillin Allergy (Verified 11/21/17 16:17) Hives calamine Allergy (Verified 11/21/17 16:17) Rash coconut oil Allergy (Verified 11/21/17 16:17) Rash erythromycin base [Erythromycin Base] Allergy (Verified 11/21/17 16:17) Hives fentanyl Allergy (Verified 11/21/17 16:17) Other seizures ferrous sulfate Allergy (Verified 11/21/17 16:17) Anaphylaxis latex Allergy (Verified 11/24/17 21:25) Rash latex condom onion Allergy (Verified 11/21/17 16:17) swollen tongue Penicillins Allergy (Verified 11/21/17 16:17) Hives tobramycin Allergy (Verified 11/21/17 16:17) Other burning, redness atomoxetine [From Strattera] Adverse Reaction (Verified 11/21/17 16:17) Other anal bleeding diphenhydramine HCl [From Benadryl] Adverse Reaction (Verified 11/21/17 16:17) Chest tightness IV dose only, paranoia [place] 40 FOOD DYE Allergy (Uncoded 11/21/17 16:17) Anaphylaxis - Pertinent Past Medical History Medical History: Past Medical History (Last Reviewed 09/21/17 @ 09:47 by Tati Jackson) Anemia Arthritis Asthma Incontinence Seizures Severe headache history of child NST - FHR Rate Baby A Baseline: 140 Variability:: Minimal, Moderate Accelerations:: 15 x 15 Decelerations:: Variable NST Reactive:: Yes Uterine Activity:: irritability Impression/Plan Reactive NST for decreased FM
== END 2017-11-24 21:35 | disposition home or self-care (01) ==
LOC: WPOUT 20:32 → WP 20:34
PROVIDERS: Family Provider Family Medicine; PCP Family Medicine; Visit Provider Obstetrics & Gynecology
DX: O36.8130 Decreased fetal movements, third trimester, not applicable or unspecified (principal); O76 Abnormality in fetal heart rate and rhythm complicating labor and delivery; O99.89 Other specified diseases and conditions complicating pregnancy, childbirth and the puerperium; M19.90 Unspecified osteoarthritis, unspecified site; O99.513 Diseases of the respiratory system complicating pregnancy, third trimester; J45.909 Unspecified asthma, uncomplicated; O99.353 Diseases of the nervous system complicating pregnancy, third trimester; G40.909 Epilepsy, unspecified, not intractable, without status epilepticus; Z3A.35 35 weeks gestation of pregnancy
CPT/HCPCS: 59025; 59050; 99218; G0378

== ENCOUNTER 2017-12-12 15:35 | Outpatient (CLI) | payer BC, SELFPAY ==
[2017-12-12 16:03] VITALS: BMI 41.1
--- NOTE | 2017-12-16 08:13 | OB.TRI.NOTE ---
History of Present Illness Date of Service: 12/12/17 Was patient seen by the physician?: No Reason For Visit: R/O LABOR Date of Service: 12/12/17 Final DANITZA: 12/31/17 Final DANITZA Source: US <20 weeks Gestational age: 37 Weeks and 6 Days Allergies amoxicillin Allergy (Verified 11/21/17 16:17) Hives calamine Allergy (Verified 11/21/17 16:17) Rash coconut oil Allergy (Verified 11/21/17 16:17) Rash erythromycin base [Erythromycin Base] Allergy (Verified 11/21/17 16:17) Hives fentanyl Allergy (Verified 11/21/17 16:17) Other seizures ferrous sulfate Allergy (Verified 11/21/17 16:17) Anaphylaxis latex Allergy (Verified 11/24/17 21:25) Rash latex condom onion Allergy (Verified 11/21/17 16:17) swollen tongue Penicillins Allergy (Verified 11/21/17 16:17) Hives tobramycin Allergy (Verified 11/21/17 16:17) Other burning, redness atomoxetine [From Strattera] Adverse Reaction (Verified 11/21/17 16:17) Other anal bleeding diphenhydramine HCl [From Benadryl] Adverse Reaction (Verified 11/21/17 16:17) Chest tightness IV dose only, paranoia [place] 40 FOOD DYE Allergy (Uncoded 11/21/17 16:17) Anaphylaxis - Pertinent Past Medical History Medical History: Past Medical History (Last Reviewed 09/21/17 @ 09:47 by Tati Jackson) Anemia Arthritis Asthma Incontinence Seizures Severe headache history of child NST - FHR Rate Baby A Baseline: 135 Variability:: Moderate Accelerations:: 15 x 15 Decelerations:: None Uterine Activity:: quiet Impression/Plan Reactive NST for dizziness in
== END 2017-12-12 17:00 | disposition home or self-care (01) ==
LOC: WPOUT 15:56 → WP 12-14 10:04
PROVIDERS: Family Provider Family Medicine; PCP Family Medicine; Visit Provider Obstetrics & Gynecology
DX: R42 Dizziness and giddiness (principal); O26.893 Other specified pregnancy related conditions, third trimester; Z3A.37 37 weeks gestation of pregnancy
CPT/HCPCS: 59025; 59050; 99218; G0378

== ENCOUNTER 2017-12-18 18:05 | Outpatient (CLI) | payer BC, SELFPAY ==
[2017-12-18 19:13] VITALS: BMI 41.4
--- NOTE | 2017-12-18 20:41 | PCM.PN.OB ---
Subjective: 35 year old female at 38w1d by LMP, DANITZA 12/31/17. Presents to L&D for decreased movement. Scheduled C/S in one week. Some occasional uterine irritability but no regular contractions. - Physical Exam Comment: NST 140, moderate variability, accels, no decels, Category 1 Reactive. Weight: 260 lb 12.909 oz Body Mass Index (BMI) 41.4 Medical Necessity - Tobacco Use Smoking Status: Former smoker Assessment/Plan All Active Problems (Last Reviewed 09/21/17 @ 09:47 by Tati Jackson) contractions (Acute) Polyhydramnios affecting in third trimester (Acute) Left ankle sprain (Acute) Sprain of left foot (Acute) A: 35 year old female at 38w1d by LMP, single IUP Decreased movement P: 1) Reassurance offered and FKCs reveiwed by nursing staff. 2) NST reactive, ok to D/C home.
== END 2017-12-18 19:23 | disposition home or self-care (01) ==
LOC: WPOUT 18:22 → WP 18:23
PROVIDERS: Family Provider Family Medicine; PCP Family Medicine; Visit Provider Obstetrics & Gynecology
DX: O36.8130 Decreased fetal movements, third trimester, not applicable or unspecified (principal); Z3A.38 38 weeks gestation of pregnancy; Z87.891 Personal history of nicotine dependence
CPT/HCPCS: 59025; 59050; 99218; G0378

== ENCOUNTER 2017-12-25 09:50 | Inpatient (IN) | payer BC, SELFPAY ==
[2017-12-24 11:29] VITALS: BMI 42.2
[2017-12-25] VITALS (19 sets, daily range): BP systolic 111–141; BP diastolic 51–86; PULSE 86–110; RESP 16–18; TEMP 36.5–37.2; O2SAT 95–100
[2017-12-25] MEDS: Lactated Ringers 1,000 ML 999 ML IV (10:15)
[2017-12-25 10:33] LABS: Absolute Lymphocyte Count 1.83 X10^3/ul (0.83-4.51); Absolute Neutrophil Count 7.9 X10^3/uL (2.0-7.7); Basophil# 0.02 X10^3/uL; Basophil% 0.2 % (0-1); Eosinophil# 0.04 X10^3/uL; Eosinophils% 0.4 % (0-5); Hematocrit 32.2 % (37-47); Hemoglobin 10.9 g/dl (12.0-15.0); Lymphocyte # 1.83 X10^3/ul (4.0); Lymphocyte % 17.2 % (19-41); Mean Corp Hgb Conc 33.9 g/gl (32-36); Mean Corpuscular Hgb 31.6 pg (27.0-32.0); Mean Corpuscular Volume 93.3 fL (81-99); Mean Platelet Vol. 10.6 fl (6.2-12.0); Monocyte# 0.82 X10^3/uL; Monocyte% 7.7 % (0-10); Neutrophil # 7.87 X10^3/uL (2.7-7.7); Neutrophil % 74.2 % (47-70); Platelet Count 230 K/mm3 (150-450); RBC Distribution Width CV 13.1 % (11.6-14.6); RBC Distribution Width SD 43.2 fl (35.1-43.9); Red Blood Count 3.45 M/mm3 (4.2-5.4); White Blood Count 10.6 K/mm3 (4.4-11.0)
[2017-12-25 10:34] LABS: POSITIVE COUNT NO; POSITIVE DIFFERENTIAL NO; POSITIVE MORPHOLOGY NO
[2017-12-25] MEDS: Lactated Ringers 1,000 ML 150 ML IV ×2 (11:17→14:17)
[2017-12-25] MEDS: Sodium Citrate/Citric Acid 30 ML UDC PO (12:00)
--- NOTE | 2017-12-25 12:24 | FALS_PTH ---
PATIENT: LOLLY DIAZ LOC: [facility] U#:[id number] AGE/SX: 37/F ROOM: WP007 RE12/25/[address]: Dr. Dali Parrish MD : 1980 BED: 1 DIS: 12/27/2017 SPEC #: [id number] RECD: 12/28/17 13:42 STATUS: TRACY REGabriela #: [id number] LATRELL: 12/25/17 12:[address]: Dali Parrish DEPT: SURGICAL PATHOLOGY RECD BY: Valentino Bravo ENTERED: 12/28/17 13:43 SP TYPE: FALL TUBES OTHR DR: Dr. Gagandeep Pendleton MD Tissues: Fallopian tube Procedures: Surgery Specimen Level II HEADER OPERATION: Tubal ligation PRE-OP DIAGNOSIS: Tubal ligation TISSUE SUBMITTED: Fallopian tube, tie on left tube MICROSCOPIC DIAGNOSIS Right and left fallopian tubes, bilateral salpingectomies: Complete cross-sections of fallopian tubes with no pathologic change. AM:willi 12/29/17 MICROSCOPIC DESCRIPTION Slides are reviewed. GROSS DESCRIPTION Received is one container labeled with the patient's name and designated bilateral fallopian tubes. The specimen consists of two fallopian tubes, one with suture, one without, with an average length of 1 cm and has a maximal diameter of 0.6 cm. Both fallopian tubes have normal fimbriated ends. No mass lesions are identified. Thread Dresser sections are submitted in two cassettes as follows: 1 - one fallopian tube without suture, 2 - the other fallopian tube with suture. / AM:willi 12/28/17 TC:4 CPT: 60880 x2
[2017-12-25] MEDS: Oxytocin 30 units/NS 500 ml 30 UNITS/500 ML IV.SOLN 167 UNITS IV (12:26)
--- NOTE | 2017-12-25 13:05 | PCM.OB.CSR ---
Delivery Classification: Scheduled Final DANITZA: 12/31/17 Gestational age: 39 Weeks and 1 Days Indications: (1) LGA infant (2) H/o shoulder dystocia (3) Sterilization request Indications for : - Description of Procedure: Patient taken to OR where spinal anesthesia was placed. She was prepped and draped in normal sterile fashion in a dorsal lithotomy position with a leftward tilt. After ensuring adequacy of anesthesia the Pfannensteil skin incision was made and carried through to the underlying fascia with a bovie. The fascia was incised in the midline and carried laterally with the Garrett scissors. The rectus muscles were in the midline and the peritoneum was entered bluntly. The bladder flap was dissected down carefully with the Metzenbaum scissors and blunt dissection. The uterus was incised in a transverse fashion and then incision extended with cephalocaudad traction. The fetus was vertex and the head was brought to the incision in the flexed position. With good fundal pressure the head easily delivered. Gentle traction placed on head to allow delivery of anterior & posterior shoulders. No excess traction placed on head. The body delivered easily. The 3VC cord was clamped and cut after 1 minute delay and the handed off to the waiting RN. The placenta was delivered w/ gentle traction and fundal massage and the uterus was exteriorized and cleared of all clots and debris. The uterine incision was closed with 1 vicryl suture in a running locked fashion. The bovie was used to further obtain further hemostasis of the uterine incision. A second imbricating layer of monocryl was placed. The uterus was returned to the peritoneal cavity. The right fallopian tube was grasped with a feliciano. It was doubly suture ligated & then tubal segment excised. Excellent hemostasis of the tubal site was confirmed & tiff was placed as a precaution. This process was repeated on the left fallopian tube. Again hemostasis was confirmed. The pelvis was irrigated & then cleared of all clots and debris. The uterine incision was reexamined and found to be hemostatic. Some tiff was placed over the uterine incision due to the denuded areas. The muscle & peritoneum were confirmed to be hemostatic. The fascia was closed with looped PDS suture in a running standard fashion. The subcutaneous tissue was examined & any bleeding bovie cauterized. The subcutaneous tissue was reapproximated with 3-0 vicryl suture. The skin was closed in a subcuticular fashion by the [employer] with me present in the labor and delivery suite. I performed the remainder of the procedure w/ assistance. Amniotic Membrane Rupture Type: Artificial Amniotic Fluid Description: Lightly stained meconium Placenta Disposition: [facility] Cord Entanglement: None Cord Vessel Description: 3 Vessels Esitmated Blood Loss (ml): 700ml Gender: Female (1 minute): 8 (5 minute): 8 Delayed cord clamping: Yes Pre-op Antibiotic Given: Clindamycin 600mg IV x1 and Gentamicin 1.5mg/kg IV x1
[2017-12-25] MEDS: Lactated Ringers 1,000 ML 100 ML IV (14:40)
[2017-12-25 15:23] LABS: Pathology Specimen OB SEE PATHOLOGY REPORT
[2017-12-25] MEDS: Ketorolac 30 MG/ML Syringe IV ×2 (17:39→22:15)
[2017-12-26] VITALS (8 sets, daily range): BP systolic 114–135; BP diastolic 65–81; PULSE 80–103; RESP 16–18; TEMP 36.6–37.1; O2SAT 94–100
[2017-12-26] MEDS: Acetaminophen 500 MG Tablet 1000 MG PO (02:44)
[2017-12-26] MEDS: Ketorolac 30 MG/ML Syringe IV ×2 (04:48→10:39)
[2017-12-26] MEDS: Lactated Ringers 1,000 ML 100 ML IV (04:49)
[2017-12-26 05:38] LABS: Hematocrit 29.6 % (37-47); Hemoglobin 9.7 g/dl (12.0-15.0); Mean Corp Hgb Conc 32.8 g/gl (32-36); Mean Corpuscular Hgb 30.6 pg (27.0-32.0); Mean Corpuscular Volume 93.4 fL (81-99); Mean Platelet Vol. 10.3 fl (6.2-12.0); Platelet Count 219 K/mm3 (150-450); RBC Distribution Width CV 13.5 % (11.6-14.6); Red Blood Count 3.17 M/mm3 (4.2-5.4); White Blood Count 11.5 K/mm3 (4.4-11.0)
[2017-12-26 05:39] LABS: Scan Indicated on CBC? Y/N NO
[2017-12-26] MEDS: 0.9% Saline Lock 10 ML Syringe IV ×2 (08:27→10:38)
--- NOTE | 2017-12-26 08:29 | PCM.PN.OB ---
Subjective: pain well controlled, average lochia, no nausea today, some yesterday. No other c/o. Mary. regular diet - Physical Exam General: Alert, Cooperative, No apparent distress Abdomen: Soft, Distended - mildly, softly, Tender - appropriately Extremities: Edema - 1+ Skin: Incision - bandage clean, dry and intact Vital Signs Temp Pulse Resp BP Pulse Ox 98.6 F 96 16 114/65 94 12/26/17 04:00 12/26/17 06:00 12/26/17 06:00 12/26/17 04:00 12/26/17 06:00 Oxygen Delivery Method Room Air Weight: 118.6 kg Body Mass Index (BMI) 42.2 Intake and Output for Last 24 Hours 12/24/17 12/25/17 12/26/17 23:59 23:59 23:59 Intake Total 1400 / 1400 Output Total 200 / 200 1400 / 1400 Balance 1200 / 1200 -1400 / -1400 Laboratory Tests Past 24 Hrs 12/25/17 12/25/17 12/26/17 10:15 10:15 05:22 WBC 10.6 11.5 H RBC 3.45 L 3.17 L Hgb 10.9 L 9.7 L Hct 32.2 L 29.6 L MCV 93.3 93.4 MCH 31.6 30.6 MCHC 33.9 32.8 RDW 13.1 13.5 RDW Differential 43.2 46.0 H Plt Count 230 219 MPV 10.6 10.3 Immature Gran % (Auto) 0.300 Neut % (Auto) 74.2 H Lymph % (Auto) 17.2 L Mcmullen % (Auto) 7.7 Eos % (Auto) 0.4 Baso % (Auto) 0.2 Absolute Neuts (auto) 7.9 H Absolute Lymphs (auto) 1.83 Total Counted Not Reportable Blood Type A POSITIVE Antibody Screen NEGATIVE Medical Necessity - Tobacco Use Smoking Status: Former smoker Assessment/Plan All Active Problems (Last Reviewed 09/21/17 @ 09:47 by Tati Jackson) contractions (Acute) Polyhydramnios affecting in third trimester (Acute) Left ankle sprain (Acute) Sprain of left foot (Acute) POD#1 doing well routine care infant and doing well chronic antepartum anemia, mild decrease appropriate for surgery today, tolerating well likely home tomorrow
[2017-12-26] MEDS: Senna/Docusate Sodium 1 Tablet PO (15:19)
[2017-12-26] MEDS: Ibuprofen 600 MG Tablet PO (15:20)
--- NOTE | 2017-12-26 19:00 | NURSING ---
Infant in rock and play at shift change. Educated pt on safe sleep and use of rock and play. Pt to be placed in crib overnight when pt and sleeping. Mother verbalizes understanding. States that her or her will be awake when in rock and play.
--- NOTE | 2017-12-26 20:27 | NURSING ---
iv d/c'd with catheter intact per patient request
[2017-12-27] MEDS: Ibuprofen 600 MG Tablet PO ×2 (00:13→06:40)
[2017-12-27 02:50] VITALS: BP 118/60; PULSE 99; RESP 18; TEMP 37.1; O2SAT 97
[2017-12-27 07:59] VITALS: BP 133/56; PULSE 88; RESP 18; TEMP 36.8; O2SAT 98
--- NOTE | 2017-12-27 11:41 | PCM.PN.OB ---
Subjective: Pain well controlled, average lochia. Patient has had bowel movements and is tolerating regular diet. - Physical Exam General: Alert, Cooperative, No apparent distress Abdomen: Soft, Non-Distended, Tender - Appropriately Extremities: Edema - 1+ Skin: Incision - Bandages clean dry and intact Vital Signs Temp Pulse Resp BP Pulse Ox 98.3 F 88 18 133/56 H 98 12/27/17 07:59 12/27/17 07:59 12/27/17 07:59 12/27/17 07:59 12/27/17 07:59 Oxygen Delivery Method Room Air Weight: 118.6 kg Body Mass Index (BMI) 42.2 Intake and Output for Last 24 Hours 12/25/17 12/26/17 12/27/17 23:59 23:59 23:59 Intake Total 1400 / 1400 Output Total 200 / 200 2400 / 2400 Balance 1200 / 1200 -2400 / -2400 Medical Necessity - Tobacco Use Smoking Status: Former smoker Assessment/Plan All Active Problems (Last Reviewed 09/21/17 @ 09:47 by Tati Jackson) contractions (Acute) Polyhydramnios affecting in third trimester (Acute) Left ankle sprain (Acute) Sprain of left foot (Acute) Postoperative day #2 Patient is doing well, infant is breast-feeding. Patient desires discharge home today. Declined narcotic prescription.
--- NOTE | 2017-12-27 11:45 | PCM.DCCSEC ---
Discharge Diet: No Restrictions Discharge Activity: Return to Normal Activity, May Not Drive - for 2 weeks, May not drive while taking narcotic pain medications., May Shower, May Take a Tub Bath - in 7 days. May resume sexual activity in: 4-6 weeks Lifting Restrictions: 20 pounds Additional Activity Instructions:: Nothing in the vagina for 4-6 weeks. You may return to work/school in 6 weeks. Call your doctor if your incision/area has: Continuous Slow Oozing, Sudden Increased Bleeding, Increased Pain/ Swelling, Increased Redness, Foul Smelling Discharge Call your doctor if you observe: Fever of 101 or Higher, Using more than one pad per hour - for 2 hours Suture Line Care: Avoid Pulling/Pushing, Avoid Pinching/Bending Cleanse incision/area with: Keep Dressing Clean & Dry Additional Instructions: If you experience any of the following, contact your healthcare provider. Bleeding that soaks a pad every hour for 2 hours Fever 100.4 or higher Unrelieved incision or abdominal pain Swelling, redness, discharge or bleeding from your incision or episiotomy site Your incision begins to separate Problems urinating (including inability to urinate or burning while urinating). Visual changes Severe headache Flu-like symptoms Pain or redness in one of both of your breasts Pain, warmth, tenderness or swelling in your legs, especially the calf area Frequent nausea and vomiting Symptoms of depression or anxiety If you experience any of the following, call 911 or go to the nearest Emergency Room. Chest pain Problems breathing Seizure activity Partial or complete paralysis of a body part, slurred speech, weakness or drooping of the face, or a sudden inability to walk or hold your balance Allergies/Adverse Reactions: Allergies amoxicillin Allergy (Verified 11/21/17 16:17) Hives calamine Allergy (Verified 11/21/17 16:17) Rash coconut oil Allergy (Verified 11/21/17 16:17) Rash erythromycin base [Erythromycin Base] Allergy (Verified 11/21/17 16:17) Hives fentanyl Allergy (Verified 11/21/17 16:17) Other seizures ferrous sulfate Allergy (Verified 11/21/17 16:17) Anaphylaxis latex Allergy (Verified 11/24/17 21:25) Rash latex condom onion Allergy (Verified 11/21/17 16:17) swollen tongue Penicillins Allergy (Verified 07/21/18 16:17) Hives tobramycin Allergy (Verified 11/21/17 16:17) Other burning, redness atomoxetine [From Strattera] Adverse Reaction (Verified 11/21/17 16:17) Other anal bleeding diphenhydramine HCl [From Benadryl] Adverse Reaction (Verified 11/21/17 16:17) Chest tightness IV dose only, paranoia CHITIMACHA 40 FOOD DYE Allergy (Uncoded 11/21/17 16:17) Anaphylaxis Medications to take at Discharge Docosahexanoic Acid [ Dha] 200 mg PO DAILY 06/01/17 vitamin #56-iron 35 mg and 5 mg-folic acid 1 mg-dha capsule 1 cap PO QDAY 09/03/17 Ibuprofen [Motrin] 800 mg PO TID PRN PRN #60 tab 12/27/17 The following prescriptions were given: Ibuprofen [Motrin] 800 mg PO TID PRN PRN #60 tab PRN Reason: Pain Follow-Up: Call to make an appointment with your doctor for an incision check in 1-2 weeks. You will also need a 6 week post- follow up appointment. Test results from this visit will be discussed in further detail at your follow-up appointment, if applicable. Please Follow Up With: Dali Parrish - [phone] 1-2 weeks or as needed When: You will need a post check in 6 weeks. Primary Care Physician: Gagandeep Pendleton MD [Primary Care Provider] -
--- NOTE | 2017-12-27 11:45 | PCM.DC.SUM ---
Discharge Date and Diagnosis Date of Admission: 01/03/17 Date of Discharge: 12/27/17 Hospital Course and Treatment Consultations 12/25/17 09:59 Consult: Anesthesia Routine Comment: Reason For Exam: labor Operations: - - Repeat low transverse section with bilateral partial salpingectomy for sterilization Summary of Care Provided: The patient is a 37 year old female admitted for repeat section. was complicated by advanced maternal age of a high risk multigravida, maternal obesity with BMI 42, polyhydramnios. Patient underwent repeat section and bilateral partial salpingectomy for sterilization on 12/25/2017 without difficulty. She had some mild antepartum anemia and had a slight decrease in hemoglobin appropriate for blood loss during surgery. By postoperative day #2 she was ambulating, urinating tolerating regular diet without difficulty and was comfortable with breast-feeding. She declined a narcotic prescription was discharged home with her vitamins and ibuprofen. She may use Tylenol as needed. She is to remove her Mepelex bandage in 2-3 days. [] Discharge Diet: No Restrictions Discharge Activity: Return to Normal Activity, May Not Drive - for 2 weeks, May not drive while taking narcotic pain medications., May Shower, May Take a Tub Bath - in 7 days. May resume sexual activity in: 4-6 weeks Additional Activity Instructions:: Nothing in the vagina for 4-6 weeks. You may return to work/school in 6 weeks. Call your doctor if your incision/area has: Continuous Slow Oozing, Sudden Increased Bleeding, Increased Pain/ Swelling, Increased Redness, Foul Smelling Discharge Call your doctor if you observe: Fever of 101 or Higher, Using more than one pad per hour - for 2 hours Suture Line Care: Avoid Pulling/Pushing, Avoid Pinching/Bending Cleanse incision/area with: Keep Dressing Clean & Dry Home Medications: Medications to take at Discharge Docosahexanoic Acid [ Dha] 200 mg PO DAILY 06/01/17 vitamin #56-iron 35 mg and 5 mg-folic acid 1 mg-dha capsule 1 cap PO QDAY 09/03/17 Ibuprofen [Motrin] 800 mg PO TID PRN PRN #60 tab 12/27/17 Following Prescrptions Were Given to Patient: Ibuprofen [Motrin] 800 mg PO TID PRN PRN #60 tab PRN Reason: Pain Primary Care Physician: Gagandeep Pendleton MD [Primary Care Provider] - Please Follow Up With: Dali Parrish - [phone] 1-2 weeks or as needed When: You will need a post check in 6 weeks. Medical Necessity - Tobacco Use Smoking Status: Former smoker Meaningful Use Info Meaningful Use Diagnoses (Choose all that apply): None applicable
[2017-12-27 12:20] VITALS: BP 133/56; PULSE 88; RESP 18; TEMP 36.8; O2SAT 98
== END 2017-12-27 12:20 | disposition home or self-care (01) | DRG 765 ==
PROVIDERS: Obstetrics & Gynecology; Admitting Provider Obstetrics & Gynecology; Family Provider Family Medicine; PCP Family Medicine; Visit Provider Obstetrics & Gynecology
PROC: 10D00Z1 Extraction of Products of Conception, Low, Open Approach (ICD-10-PCS; CPT 59514; principal; 2017-12-25 11:45)
DX: O36.63X0 Maternal care for excessive fetal growth, third trimester, not applicable or unspecified (principal); O98.82 Other maternal infectious and parasitic diseases complicating childbirth; B95.1 Streptococcus, group B, as the cause of diseases classified elsewhere; O40.3XX0 Polyhydramnios, third trimester, not applicable or unspecified; O99.214 Obesity complicating childbirth; O77.0 Labor and delivery complicated by meconium in amniotic fluid; O99.02 Anemia complicating childbirth; D64.9 Anemia, unspecified; O34.211 Maternal care for low transverse scar from previous cesarean delivery; Z3A.39 39 weeks gestation of pregnancy; Z87.891 Personal history of nicotine dependence; Z30.2 Encounter for sterilization; Z3A.42 42 weeks gestation of pregnancy; Z37.0 Single live birth
CPT/HCPCS: 85025; 85027; 86850; 86900; 88302; 99218; J7120; A4216; G0378

== ENCOUNTER 2017-12-31 19:19 | Emergency (ER) | payer BC, SELFPAY ==
[2017-12-31 19:20] VITALS: BP 123/66; PULSE 79; RESP 18; TEMP 36.8; O2SAT 97; BMI 38.8
--- NOTE | 2017-12-31 21:09 | ED.VISSUMM ---
- ER Visit Summary Date of Service: 12/31/17 Chief Complaint: wound check s/p CSD History of Present Illness: The patient is a 37 F 6 days status post delivery and bilateral tubal ligation who presents for 1 day of worsening incision pain. Patient states pain is worse with movement and relieved by not moving. It is a pinching sensation along the midline incision that radiates in a burning pattern to the abdomen. Patient has not taken any medication for this. She denies fever, diarrhea, urinary symptoms. She does have associated nausea and has vomited once. She takes Motrin and acetaminophen as needed for pain with improvement. She had her look at the incision and he did not see anything that he thought was concerning. She is unable to look at the incision due to its location and was concerned due to the pain. Physical Examination: Vital signs: afebrile, hemodynamically stable, no hypoxia on room air General: well nourished, well developed, in no distress Skin: warm, dry, no rash, no pallor HEENT: normocephalic and atraumatic; PERRL, EOMI, moist mucous membranes Cardiovascular: regular rate and rhythm without murmurs, no peripheral edema, 2+ pulses all distal extremities Respiratory: No increased work of breathing, lungs are clear to auscultation bilaterally, no rales, rhonchi or wheezing Abdominal: Abdomen is soft, nontender with normoactive bowel sounds, no guarding or rebound, no masses, well-healing horizontal incision that is clean dry and intact without any exudate or dehiscence in the low abdomen/upper suprapubic region. Nontender. MSK: Moves all extremities, no deformities, normal strength Neuro: Awake and alert, oriented ?4. No facial droop, sensation and motor function intact and symmetric Test Results: [] Emergency Department Course and Treatment: She was offered and declined pain medications. Labs were performed showing no leukocytosis, patient's hemoglobin at baseline, and no hepatic or renal derangements. Patient had no electrolyte imbalances. Patient was discussed with Dr. Paniagua, who stated the patient can follow-up with Dr. Parrish in the office tomorrow if she needs to. The patient was also evaluated in the office earlier today. Patient is afebrile, well-appearing, currently in no pain, and has no concerning findings on her workup that would warrant further admission or testing. Patient agreed with discharge home and will continue her home pain medications as needed. Treatment Plan: [] Disposition: [] Impression: Postoperative pain at incision This note was generated with [employer] dictation software. It may contain incorrect words, spelling, and punctuation that were not noted in review of the chart prior to signing ED Disposition - Plan for ED Patient: Chief Complaint: Wound Check Referrals: Gagandeep Pendleton MD [Primary Care Provider] -
[2017-12-31] MEDS: Ondansetron 4 MG/2 ML Vial IV (21:27)
[2017-12-31] MEDS: 0.9% Normal Saline 1,000 ML 1000 ML IV (21:27)
[2017-12-31 21:53] LABS: ALB/GLOB Ratio 0.6 RATIO (0.9-2.4); AST(SGOT) 15 U/L (15-37); Alanine Aminotransfer ALT/SGPT 20 U/L (13-56); Albumin, Serum 2.5 g/dL (3.2-5.0); Alkaline Phosphatase 77 U/L (45-117); Anion Gap 11 (5-15); BUN 15 mg/dL (7-18); BUN/Creat Ratio 19.7 RATIO (10-20); Calcium,Total 8.2 mg/dL (8.5-10.1); Chloride 108 mmol/L (98-107); Creatinine, Serum 0.76 mg/dL (0.55-1.02); EST Glomerular Filtration Rate 92 mL/min (>60); Est Glom Filt Rate - Afr Amer 111 mL/min (>60); Estimated Creatinine Clearance 96.72 ml/min; Globulin 4.3 g/dL (2.2-4.2); Glucose 114 mg/dL (74-106); Lipase 162 U/L (73-393); Potassium 3.7 mmol/L (3.5-5.1); Protein, Total 6.8 g/dL (6.4-8.2); Sodium Level 141 mmol/L (136-145)
[2017-12-31 21:55] LABS: Absolute Lymphocyte Count 2.24 X10^3/ul (0.83-4.51); Absolute Neutrophil Count 7.1 X10^3/uL (2.0-7.7); Basophil# 0.04 X10^3/uL; Basophil% 0.4 % (0-1); Eosinophil# 0.37 X10^3/uL; Eosinophils% 3.5 % (0-5); Hematocrit 31.7 % (37-47); Hemoglobin 10.4 g/dl (12.0-15.0); Lymphocyte # 2.24 X10^3/ul (4.0); Mean Corp Hgb Conc 32.8 g/gl (32-36); Mean Corpuscular Hgb 31.3 pg (27.0-32.0); Mean Corpuscular Volume 95.5 fL (81-99); Monocyte# 0.91 X10^3/uL; Monocyte% 8.5 % (0-10); Neutrophil # 7.08 X10^3/uL (2.7-7.7); Neutrophil % 66.3 % (47-70); POSITIVE COUNT NO; POSITIVE DIFFERENTIAL NO; POSITIVE MORPHOLOGY NO; Platelet Count 386 K/mm3 (150-450); RBC Distribution Width CV 12.6 % (11.6-14.6); RBC Distribution Width SD 42.8 fl (35.1-43.9); Red Blood Count 3.32 M/mm3 (4.2-5.4); White Blood Count 10.7 K/mm3 (4.4-11.0)
--- NOTE | 2017-12-31 22:57 | ED.DEP ---
ED Disposition - Plan for ED Patient: Disposition: Home or Assisted Living Chief Complaint: Wound Check Instructions: ED Post Op Pain, ED Wound Check Post Op No Infec Referrals: Gagandeep Pendleton MD [Primary Care Provider] - Dali Parrish [STAFF PHYSICIAN] - 1-2 Days if not improving Additional Instructions: Continue your home pain medications as directed by Dr. Parrish. She will be in the office tomorrow, so please call in the morning to make a follow-up appointment for tomorrow if you continue to have concerns about your pain at your site. If you have any worsening of your condition or any new concerning symptoms, please return immediately to the emergency department for another evaluation.
[2017-12-31 23:01] VITALS: RESP 18
== END 2017-12-31 23:06 | disposition home or self-care (01) ==
PROVIDERS: Emergency Provider Emergency Medicine; Family Provider Family Medicine; PCP Family Medicine
DX: O90.89 Other complications of the puerperium, not elsewhere classified (principal); G89.18 Other acute postprocedural pain; Z98.51 Tubal ligation status
CPT/HCPCS: 80053; 83690; 85025; 99283; J7030; J2405

== ENCOUNTER 2018-05-26 21:29 | Emergency (ER) | payer OTHER, SELFPAY ==
[2018-05-26 21:31] VITALS: BP 158/98; PULSE 105; RESP 20; TEMP 36.7; O2SAT 97; BMI 39.6
--- NOTE | 2018-05-26 21:43 | RAD_ITS ---
STUDY: X-RAY - RIGHT HAND REASON FOR EXAM: Female, 37 years old. Injury at work. TECHNIQUE: 3 view(s) of the hand. COMPARISON: September 05, 2015 FINDINGS: Normal radiocarpal articulation. Normal distal radioulnar joint. Normal visualized carpal bones. Normal carpal articulations Normal carpometacarpal articulation of the thumb. Normal second through fifth carpometacarpal joints. Normal metacarpi. Normal metacarpophalangeal joint of the thumb. Normal interphalangeal joint of the thumb. Normal proximal and distal phalanges of the thumb. Normal metacarpophalangeal joints of the second through fifth fingers. Normal proximal and distal interphalangeal joints of the second through fifth fingers. Normal phalanges of the second through fifth fingers. The soft tissue structures are unremarkable. RAD/Hand Min 3 Views IMPRESSION: No acute osseous injury. Electronically Signed: Anali Byers MD at 22:31 EST Tel , Service support ,
[2018-05-26] MEDS: Naproxen 500 MG Tablet PO (21:48)
--- NOTE | 2018-05-26 21:53 | ED.RN ---
PATIENT REFUSED OXYIR STATES I DON'T TAKE ANYTHING ANY STRONGER THAN IBUPROFEN.
--- NOTE | 2018-05-26 21:55 | RAD_ITS ---
STUDY: X-RAY - RIGHT RADIUS AND ULNA REASON FOR EXAM: Female, 37 years old. Arm injury at work. TECHNIQUE: 2 view(s) of the forearm. COMPARISON: None. FINDINGS: There is no demonstrated soft tissue swelling. Normal visualized radius. Normal visualized ulna. RAD/Forearm 2 Views IMPRESSION: Within normal limits x-ray examination of the radius and ulna. Electronically Signed: Anali Byers MD at 22:30 EST Tel , Service support ,
--- NOTE | 2018-05-26 22:51 | ED.VISSUMM ---
- ER Visit Summary Date of Service: 05/26/18 Chief Complaint: Right wrist injury History of Present Illness: The patient is a 37 F who is right-hand dominant. She was pulling parts at work when 1 of the parts got stuck in her right arm got wrenched. Patient has pain to the medial right wrist into the forearm. She has waxing and waning paresthesias to the hand. Physical Examination: Vital signs significant for blood pressure 158/98. Patient sitting upright in bed. She appears uncomfortable. Right upper extremity examination was tenderness along the medial portion of the right wrist and hand. The fourth and fifth fingers are held in flexion. She can extend but does have pain with doing so. Patient is holding her wrist with radial deviation. She has difficulty trying to flex toward the ulnar side. She does have good cap refill and has sensation on palpation of the fingers. There is mild tenderness over the distal aspect of the medial forearm. There is no evidence of compartment syndrome. No tenderness at the elbow itself. Test Results: Right hand and right forearm x-rays are obtained that revealed no evidence of acute osseous injury. Emergency Department Course and Treatment: Patient was given naproxen. She declines anything stronger for pain. Test results are discussed with her. I am concerned that she may have ligamentous injury along the medial aspect of her wrist. She is placed in a Velcro wrist splint. She will follow-up with hand surgery. Treatment Plan: [] Disposition: Discharge Impression: Right wrist sprain This note was generated with [employer] dictation software. It may contain incorrect words, spelling, and punctuation that were not noted in review of the chart prior to signing ED Disposition - Plan for ED Patient: Chief Complaint: Upper Extremity Injury Referrals: Gagandeep Pendleton MD [Primary Care Provider] -
--- NOTE | 2018-05-26 23:00 | ED.DEP ---
ED Disposition - Plan for ED Patient: Disposition: Home or Assisted Living Chief Complaint: Upper Extremity Injury Instructions: ED Sprain Wrist Referrals: Portillo Mi Jr., MD [NON-STAFF] - As soon as possible [facility] [GROUP OF PHYSICIANS] - 2 Days
== END 2018-05-26 23:13 | disposition home or self-care (01) ==
PROVIDERS: Emergency Provider Emergency Medicine; Family Provider Family Medicine; PCP Family Medicine
DX: S63.501A Unspecified sprain of right wrist, initial encounter (principal); X50.3XXA Overexertion from repetitive movements, initial encounter; Y93.89 Activity, other specified; Y92.89 Other specified places as the place of occurrence of the external cause; Y99.0 Civilian activity done for income or pay; J45.909 Unspecified asthma, uncomplicated; Z87.891 Personal history of nicotine dependence
CPT/HCPCS: 73090; 73130; 99283

== ENCOUNTER → 2018-06-08 06:26 | Outpatient (CLI) | payer OTHER, SELFPAY ==
[2018-05-28 08:27] VITALS: BMI 39.6
--- NOTE | 2018-06-08 06:33 | MRI_ITS ---
STUDY: MRI RIGHT WRIST WITHOUT CONTRAST REASON FOR EXAM: Right wrist sprain, work injury 05/28/2018, numbness in fingers and difficulty straightening fingers. TECHNIQUE: Standardized fat and water weighted pulse sequences were obtained in all 3 orthogonal planes. COMPARISON: Radiographs 05/26/2018. FINDINGS: Normal visualized distal radius and ulna. Normal distal radioulnar articulation (DRUJ). Normal triangular fibrocartilaginous complex (TFCC). There is a small cyst in the capitate (inversion recovery coronal image 13). Otherwise, normal carpal bones. Normal radiocarpal, intercarpal and midcarpal articulations. Normal pisotriquetral articulation. Normal visualized interosseous scapholunate ligament. Normal extensor tendons. Normal flexor tendons. Normal carpal tunnel with a normal median nerve. Normal carpometacarpal articulation of the thumb. Normal second through fifth carpometacarpal articulations. Normal visualized metacarpal bones. There is no demonstrated soft tissue abnormality. MRI/Upper Ext Joint Only(Routine) IMPRESSION: No demonstrated internal derangement of the right wrist. Electronically Signed: Yusuf Colmenares MD at 8:24 EST Tel , Service support ,
== END ==
PROVIDERS: Family Provider Family Medicine; PCP Family Medicine; Referring Provider Physician Assistant Surgical; Visit Provider Physician Assistant Surgical
DX: S63.501A Unspecified sprain of right wrist, initial encounter (principal); R20.0 Anesthesia of skin
CPT/HCPCS: 73221

== ENCOUNTER 2018-08-10 11:03 | Emergency (ER) | payer OTHER, BC, SELFPAY ==
[2018-07-06 13:04] VITALS: BMI 36.3
[2018-08-10 11:04] VITALS: BP 155/82; PULSE 98; RESP 18; TEMP 36.8; O2SAT 98; BMI 38.8
--- NOTE | 2018-08-10 11:20 | ED.RN ---
this visit not a new workers comp claim. all original workers comp paperwork completed. pt retains all info regarding claim for registration purposes
--- NOTE | 2018-08-10 11:26 | ED.VISSUMM ---
- ER Visit Summary Date of Service: 08/10/18 Chief Complaint: Wrist pain History of Present Illness: The patient is a 37 F with left wrist pain, she had carpal tunnel syndrome, noticed some pus coming out of her wound last night she expectorated most of it. She has no fever or chills, she has an appointment with [facility] tomorrow, but could not get in today. Physical Examination: Her incision is clean dry and intact, its a vertical wrist incision on the left. There is a proximal area of wound with a scab, I uncapped the wound there is no pus drainage. There is no surrounding cellulitis. Otherwise full range of motion. Emergency Department Course and Treatment: Patient appears well, I do not see any signs of cellulitis, there may have been small amount of pus behind the wound but I do not see it now regardless she has an appointment tomorrow with [facility], I will start her on Bactrim if she worsens she needs to return right away. Disposition: Discharge stable condition Impression: Wound check, postop This note was generated with [employer] dictation software. It may contain incorrect words, spelling, and punctuation that were not noted in review of the chart prior to signing ED Disposition - Plan for ED Patient: Disposition: Home or Assisted Living Instructions: ED Wound Check Post Op No Infec Prescriptions: Smz/Tmp Ds [Bactrim Ds] 1 tab PO BID #20 tab Additional Instructions: Follow-up with [facility] tomorrow as scheduled
--- NOTE | 2018-08-10 11:35 | ED.DCSUM_ITS ---
- ER Visit Summary Date of Service: 08/10/18 Chief Complaint: Wrist pain History of Present Illness: The patient is a 37 F with left wrist pain, she had carpal tunnel syndrome, noticed some pus coming out of her wound last night she expectorated most of it. She has no fever or chills, she has an appointment with [facility] tomorrow, but could not get in today. Physical Examination: Her incision is clean dry and intact, its a vertical wrist incision on the left. There is a proximal area of wound with a scab, I uncapped the wound there is no pus drainage. There is no surrounding cellulitis. Otherwise full range of motion. Emergency Department Course and Treatment: Patient appears well, I do not see any signs of cellulitis, there may have been small amount of pus behind the wound but I do not see it now regardless she has an appointment tomorrow with [facility], I will start her on Bactrim if she worsens she needs to return right away. Disposition: Discharge stable condition Impression: Wound check, postop This note was generated with [employer] dictation software. It may contain incorrect words, spelling, and punctuation that were not noted in review of the chart prior to signing ED Disposition - Plan for ED Patient: Disposition: Home or Assisted Living Instructions: ED Wound Check Post Op No Infec Prescriptions: Smz/Tmp Ds [Bactrim Ds] 1 tab PO BID #20 tab Additional Instructions: Follow-up with [facility] tomorrow as scheduled
[2018-08-10] MEDS: Smz/Tmp Ds Tablet 1 TABLET PO (11:45)
[2018-08-10 11:46] VITALS: BP 132/78; PULSE 83; RESP 16; O2SAT 98
== END 2018-08-10 11:47 | disposition home or self-care (01) ==
PROVIDERS: Emergency Provider Emergency Medicine; Family Provider Family Medicine; PCP Family Medicine
DX: Z48.01 Encounter for change or removal of surgical wound dressing (principal)
CPT/HCPCS: 99283

== ENCOUNTER 2018-12-05 15:18 | Emergency (ER) | payer BC, SELFPAY ==
[2018-12-05 15:21] VITALS: BP 135/68; PULSE 89; RESP 18; TEMP 36.4; O2SAT 98; BMI 41.3
--- NOTE | 2018-12-05 16:02 | RAD_ITS ---
STUDY: X-RAY - RIGHT FOOT CLINICAL: Female, 38 years old. Rolled foot. TECHNIQUE: 3 view(s) of the foot. COMPARISON: None. FINDINGS: Normal talus, calcaneus, and tarsal bones. Normal visualized subtalar, talonavicular, calcaneocuboid, tarsal and tarsometatarsal articulations. Normal metatarsi. Normal metatarsophalangeal joint of the great toe. Normal tibial and fibular sesamoid bones. Normal interphalangeal joint of the great toe. Normal phalanges of the great toe. Normal second through fifth metatarsophalangeal joints. Normal interphalangeal joints and phalanges of the lesser toes. The soft tissue structures are unremarkable. RAD/Foot min 3 Views IMPRESSION: Normal x-ray examination of the foot. Electronically Signed: Gisselle Enriquez MD at 17:07 EDT Tel , Service support ,
--- NOTE | 2018-12-05 17:12 | ED.VISSUMM ---
- ER Visit Summary Date of Service: 12/05/18 Chief Complaint: Foot pain History of Present Illness: The patient is a 38 F with right foot pain. The patient rolled her foot when she stepped on a bottle 2 days ago. She complains of pain to her first metatarsal region that radiates across her dorsal foot. No other injuries or complaints. No other symptoms. Physical Examination: Afebrile and vital signs unremarkable. Patient has dorsal foot tenderness, more so on the medial aspect over the first metatarsal. Skin is intact. No deformities or laxities. Good range of motion. Good strength and sensation. Good capillary refill. Test Results: X-rays unremarkable. Emergency Department Course and Treatment: Patient declined pain medicine. X-rays were unremarkable. Rest, ice, elevate. [id number] remedies for pain. Follow-up with primary care. Treatment Plan: As above Disposition: Discharge Impression: 1. Right foot pain This note was generated with [employer] dictation software. It may contain incorrect words, spelling, and punctuation that were not noted in review of the chart prior to signing ED Disposition - Plan for ED Patient: Referrals: Gagandeep Pendleton MD [Primary Care Provider] -
--- NOTE | 2018-12-05 17:13 | ED.DEP ---
ED Disposition - Plan for ED Patient: Instructions: Sprain Foot Referrals: Gagandeep Pendleton MD [Primary Care Provider] -
== END 2018-12-05 17:28 | disposition home or self-care (01) ==
LOC: ED 16:18
PROVIDERS: Emergency Provider Emergency Medicine; Family Provider Family Medicine; PCP Family Medicine
DX: M79.671 Pain in right foot (principal)
CPT/HCPCS: 73630; 99282

== ENCOUNTER 2018-12-21 13:20 | Emergency (ER) | payer BC, SELFPAY ==
[2018-12-21 13:20] VITALS: BP 146/87; PULSE 86; RESP 18; TEMP 36.5; O2SAT 98; BMI 41.3
--- NOTE | 2018-12-21 13:22 | RAD_ITS ---
STUDY: X-RAY - LEFT FOOT CLINICAL: Female, 38 years old. Injury TECHNIQUE: 3 view(s) of the foot. COMPARISON: None. FINDINGS: Mild osteoarthritis of the first MTP joint, and also the mid tarsal joints No acute displaced fracture, or traumatic subluxation based on current assessment. The soft tissue structures are unremarkable. RAD/Foot min 3 Views IMPRESSION: No acute displaced fracture, or traumatic subluxation based on current assessment. Electronically Signed: Savage Perez MD at 13:46 EDT Tel [phone], Service support ,
--- NOTE | 2018-12-21 14:36 | ED.DCSUM_ITS ---
- ER Visit Summary Date of Service: 12/21/18 Chief Complaint: Left foot pain History of Present Illness: The patient is a 38 F who presents with left foot pain that began today. Patient states she stepped on a hot wheel car. Patient states she has pain over the plantar aspect of her left foot. Patient states her pain is worse with weightbearing. Patient denies any paresthesias or weakness. Patient denies any other injuries. Physical Examination: Vital signs are stable. Patient is afebrile. Patient is in no acute distress. Musculoskeletal exam reveals tenderness on the plantar aspect of the left foot. There is no edema or ecchymosis. There is no deformity noted. Range of motion was limited in all motion secondary to pain. There is no pain over the left ankle. Capillary refill is less than 2 seconds in all digits. Pedal pulses are equal bilaterally. There are no sensory deficits noted. Test Results: X-rays of the left foot were obtained. There is no acute fracture. These were interpreted by the radiologist and myself. Emergency Department Course and Treatment: Patient was given a postop shoe. Patient was instructed to ice and elevate the left foot. Patient was instructed to take Tylenol or ibuprofen as needed for pain. Patient was instructed to follow-up with her primary care physician in 7 to 10 days. Patient understood and was agreeable with the plan. All questions were answered. Disposition: Discharge home Impression: Left foot contusion This note was generated with [employer] dictation software. It may contain incorrect words, spelling, and punctuation that were not noted in review of the chart prior to signing ED Disposition - Plan for ED Patient: Disposition: Home or Assisted Living Diagnosis: Contusion of left foot, initial encounter Instructions: CONTUSION, Foot Referrals: Gagandeep Pendleton MD [Primary Care Provider] - 1-2 Weeks
--- NOTE | 2018-12-21 14:55 | ED.RN ---
DISCHARGE INSTRUCTIONS GIVEN TO AND REVIEWED WITH PATIENT, PATIENT DENIES QUESTIONS OR CONCERNS AND VOICES UNDERSTANDING OF DISCHARGE INSTRUCTIONS. PT AMBULATES OUT OF ROOM WITHOUT DIFFICULTY.
== END 2018-12-21 14:55 | disposition home or self-care (01) ==
LOC: ED 14:41
PROVIDERS: Emergency Provider Emergency Medicine; Family Provider Family Medicine; PCP Family Medicine
DX: S90.32XA Contusion of left foot, initial encounter (principal); W22.8XXA Striking against or struck by other objects, initial encounter; Y93.9 Activity, unspecified; Y92.89 Other specified places as the place of occurrence of the external cause; Y99.9 Unspecified external cause status; Z72.0 Tobacco use
CPT/HCPCS: 73630; 99283

== ENCOUNTER 2019-01-20 00:44 | Emergency (ER) | payer BC, SELFPAY ==
[2019-01-20 00:44] VITALS: BP 147/94; PULSE 103; RESP 18; TEMP 36.8; O2SAT 100; BMI 40.4
--- NOTE | 2019-01-20 00:51 | RAD_ITS ---
STUDY: X-RAY - RIGHT FOOT CLINICAL: Female, 38 years old. Pain TECHNIQUE: 3 view(s) of the foot. COMPARISON: December 05, 2018. FINDINGS: Normal talus, calcaneus, and tarsal bones. Normal visualized subtalar, talonavicular, calcaneocuboid, tarsal and tarsometatarsal articulations. Normal metatarsi. Normal metatarsophalangeal joint of the great toe. Normal tibial and fibular sesamoid bones. Normal interphalangeal joint of the great toe. Normal phalanges of the great toe. Normal second through fifth metatarsophalangeal joints. Normal interphalangeal joints and phalanges of the lesser toes. The soft tissue structures are unremarkable. RAD/Foot min 3 Views IMPRESSION: Normal x-ray examination of the foot. Electronically Signed: Zach Schmitz, at 1:50 EDT Tel , Service support ,
--- NOTE | 2019-01-20 00:52 | ED.VISSUMM ---
- ER Visit Summary Date of Service: 01/20/19 Chief Complaint: Right foot pain History of Present Illness: The patient is a 38 F presenting with right foot pain. Patient states this has been ongoing for the past month. She does not recall a specific injury. She states she uses her foot to push down on the foot pedal on a cart at work frequently. She has pain with standing. She has been using ibuprofen for pain. She has appointment with podiatry next week. She was concerned she may have a stress fracture that was missed on initial x-rays. She denies other complaints. Physical Examination: Vitals are stable. Patient is afebrile. Alert no acute distress. HEENT exam is unremarkable. Neck is supple. Lungs are clear and equal bilaterally. Heart is regular rate and rhythm. Extremities right foot tenderness along distal fourth and fifth metatarsal. No erythema or warmth. Normal pulses. No calf tenderness. Skin is warm and dry. No focal neurologic deficit. Remainder of exam is unremarkable. Emergency Department Course and Treatment: X-ray right foot shows no acute process. Patient was given a postop shoe. She is advised to follow-up with podiatry. Advised return to ED for worsening complaints. Disposition: Discharge home Impression: Right foot pain This note was generated with [employer] dictation software. It may contain incorrect words, spelling, and punctuation that were not noted in review of the chart prior to signing ED Disposition - Plan for ED Patient: Referrals: Gagandeep Pendleton MD [Primary Care Provider] -
--- NOTE | 2019-01-20 02:01 | ED.DEP ---
ED Disposition - Plan for ED Patient: Instructions: Sprain Foot Referrals: Gagandeep Pendleton MD [Primary Care Provider] -
[2019-01-20 02:15] VITALS: BP 129/71; PULSE 86; RESP 15; O2SAT 99
== END 2019-01-20 02:16 | disposition home or self-care (01) ==
LOC: ED 01:10
PROVIDERS: Emergency Provider Emergency Medicine; Family Provider Family Medicine; PCP Family Medicine
DX: M79.671 Pain in right foot (principal); Z72.0 Tobacco use
CPT/HCPCS: 73630; 99283

== ENCOUNTER 2019-02-05 13:16 | Emergency (ER) | payer BC, SELFPAY ==
[2019-02-05 13:18] VITALS: BP 128/77; PULSE 101; RESP 16; TEMP 36.4; O2SAT 98; BMI 37.5
[2019-02-05] MEDS: dexAMETHasone 10 MG/ML Vial PO.IVFORM (13:31)
[2019-02-05] MEDS: Famotidine 20 MG Tablet PO (13:31)
--- NOTE | 2019-02-05 13:44 | ED.DCSUM_ITS ---
- ER Visit Summary Date of Service: 02/05/19 Chief Complaint: Allergic reaction History of Present Illness: The patient is a 38 F who was going to take some Tylenol and wash it down with some Mountain Dew when as she was drinking a bee flew into her mouth and stung her. She states it feels like she got stung in the back of her throat. She denies any shortness of breath or hives. She does note an allergic reaction in the past to certain types of hymenoptera. She did take 1 vtki-wko-wjdaott Benadryl and prior to arrival. Physical Examination: Afebrile vital signs are stable Gen: Well-nourished well-developed Head: Normocephalic atraumatic Eyes: Perrl EOMI ENT: TMs clear no rhinorrhea moist mucous membranes I do not appreciate any swelling. There is no hoarseness to the voice. Patient is handling her secretions Neck: Supple no lymphadenopathy no JVD nontender CVS: Regular rate rhythm no murmurs normal S1-S2 Respiratory: No distress clear to auscultation bilaterally chest nontender Abdomen: Soft nontender nondistended normal bowel sounds no masses Back: Nontender Extremity: Right foot is in a boot orthosis Skin: Normal color no rash Neuro: alert orientated ?3 CN II-XII intact normal strength sensation Psych: Normal affect normal mood Emergency Department Course and Treatment: Patient was given a dose of Decadron and a Pepcid. She was observed. She should continue Pepcid and Benadryl until asymptomatic. Impression: 1. Hymenoptera envenomation This note was generated with [employer] dictation software. It may contain incorrect words, spelling, and punctuation that were not noted in review of the chart prior to signing ED Disposition - Plan for ED Patient: Disposition: Home or Assisted Living Instructions: Insect Bites and Stings Referrals: Gagandeep Pendleton MD [Primary Care Provider] - As Needed Additional Instructions: Please take Pepcid 20 mg twice a day as well as 25 mg of Benadryl every 6 hours until you are asymptomatic. Return if worsening or concerns.
[2019-02-05 15:01] VITALS: BP 112/64; PULSE 68; RESP 18; O2SAT 99
== END 2019-02-05 15:03 | disposition home or self-care (01) ==
LOC: ED 13:50
PROVIDERS: Emergency Provider Emergency Medicine; Family Provider Family Medicine; PCP Family Medicine
DX: T63.441A Toxic effect of venom of bees, accidental (unintentional), initial encounter (principal); Z72.0 Tobacco use
CPT/HCPCS: 99283

== ENCOUNTER 2019-02-12 18:23 | Emergency (ER) | payer BC, SELFPAY ==
[2019-02-12 18:24] VITALS: BP 124/85; PULSE 100; RESP 16; TEMP 36.2; BMI 40.1
--- NOTE | 2019-02-12 18:50 | ED.DCSUM_ITS ---
- ER Visit Summary Date of Service: 02/12/19 Chief Complaint: Abscess History of Present Illness: The patient is a 38 F who presents with an abscess to her mid lower abdomen that began today. Patient states she noticed this when she got out of the shower today. Patient describes the pain as dull. Patient states the pain is worse with pressure and palpation. Patient states she was able to express some bloody drainage from the area by squeezing it. Patient denies any fevers or chills. Patient denies any purulent drainage. Patient does admit to some redness around the area. Physical Examination: Vital signs are stable. Patient is afebrile. Patient is in no acute distress. Skin is warm dry. There is some erythema and an abscess over the lower abdomen in the midline. There is no active discharge or drainage. There is minimal fluctuance. There is some surrounding erythema and warmth. Abdomen is soft and otherwise nontender. Bowel sounds are normal. There is no rebound or guarding noted. Heart was regular rate and rhythm. Lungs are clear and equal bilaterally. Cranial nerves II through XII are intact. There are no focal motor or sensory deficits noted. Emergency Department Course and Treatment: Patient does not want incision and drainage done at this time. Patient states that if the abscess gets worse she will return for incision and drainage. Patient was given a prescription for Bactrim. Patient was instructed to follow-up with her primary care physician in 5 to 7 days. Patient was instructed to use warm compresses to the area. Patient understood and was agreeable with the plan. All questions were answered. Disposition: Discharge home Impression: Abdominal abscess This note was generated with [employer] dictation software. It may contain incorrect words, spelling, and punctuation that were not noted in review of the chart prior to signing ED Disposition - Plan for ED Patient: Disposition: Home or Assisted Living Diagnosis: Abdominal wall abscess Instructions: ABSCESS, Antiobiotic Treatment Only Prescriptions: Smz/Tmp Ds [Bactrim Ds] 1 tab PO BID #20 tab Prescription Printed Referrals: Gagandeep Pendleton MD [Primary Care Provider] - 5-7 Days
== END 2019-02-12 19:22 | disposition home or self-care (01) ==
PROVIDERS: Emergency Provider Emergency Medicine; Family Provider Family Medicine; PCP Family Medicine
DX: L02.211 Cutaneous abscess of abdominal wall (principal); J45.909 Unspecified asthma, uncomplicated; G43.909 Migraine, unspecified, not intractable, without status migrainosus; M26.609 Unspecified temporomandibular joint disorder, unspecified side; M25.311 Other instability, right shoulder; Z72.0 Tobacco use
CPT/HCPCS: 99282

== ENCOUNTER 2019-04-28 03:19 | Emergency (ER) | payer BC, SELFPAY ==
[2019-04-28 03:20] VITALS: BP 119/81; PULSE 120; RESP 18; TEMP 36.2; O2SAT 98; BMI 38.0
[2019-04-28 03:25] VITALS: BP 119/81; PULSE 121; RESP 18; TEMP 36.2; O2SAT 98
--- NOTE | 2019-04-28 03:28 | ED.DCSUM_ITS ---
History of Present Illness Chief Complaint: Nausea/Vomiting/Diarrhea Informant: Patient Onset: Today Context: Sudden Onset Timing: Continuous Current Severity: Moderate Maximum Severity: Severe Narrative: The patient is an otherwise healthy female presents to the emergency department with sudden onset nausea, vomiting, diarrhea. Patient was in her normal state of health. Her daughter was actually sick 2 days ago with similar symptoms. She states that about 1030, she had sudden onset nausea and vomiting with loose, watery diarrhea. She states that she is vomited multiple times. She states that it comes on in waves. She denies any pain. She denies any fevers or chills. She states she is otherwise been in her normal state of health. She does have history of prior , but no other abdominal surgery. Prior similar symptoms: No Recent Illness/Hospitalization: No Past Medical History - Allergies and Home Meds Allergies/Adverse Reactions: Allergies amoxicillin Allergy (Verified 12/21/18 13:22) Hives calamine Allergy (Verified 12/21/18 13:22) Rash coconut oil Allergy (Verified 01/20/19 00:48) Rash erythromycin base [Erythromycin Base] Allergy (Verified 01/20/19 00:48) Hives fentanyl Allergy (Verified 01/20/19 00:48) Other seizures ferrous sulfate Allergy (Verified 01/20/19 00:48) Anaphylaxis latex Allergy (Verified 01/20/19 00:48) Rash latex condom onion Allergy (Verified 01/20/19 00:48) swollen tongue Penicillins Allergy (Verified 01/20/19 00:48) Hives tobramycin Allergy (Verified 01/20/19 00:48) Other burning, redness atomoxetine [From Strattera] Adverse Reaction (Verified 01/20/19 00:48) Other anal bleeding diphenhydramine HCl [From Benadryl] Adverse Reaction (Verified 01/20/19 00:48) Chest tightness IV dose only, paranoia [place] 40 FOOD DYE Allergy (Uncoded 01/20/19 00:48) Anaphylaxis Primary Care Physician: Gagandeep Pendleton MD [Primary Care Provider] - Prior records reviewed: Yes Past Medical History: None Surgical History: - - c section Smoking Status: Current every day smoker Review of Systems General: Denies: Chills, Fever, Sweats Eyes: Denies: Visual changes - bilaterally, Diplopia ENT: Denies: Rhinorrhea, Sore throat Cardiovascular: Denies: Chest pain, Palpitations Respiratory: Denies: Dyspnea, Cough, Dyspnea on exertion Gastrointestinal: Reports: Nausea, Vomiting, Diarrhea. Denies: Abdominal pain, Melena, Hematochezia Genitourinary: Denies: Dysuria, Hematuria, Frequency Musculoskeletal: Denies: Back pain, Extremity Pain Skin: Denies: Rash, Wounds Neurological: Denies: Headache, Weakness, Numbness Physical Exam Vital Signs/Narrative: Vital Signs Temp Pulse Resp BP Pulse Ox 04/28/19 03:20 97.1 F L 120 H 18 119/81 H 98 Inital Vital Signs reviewed: Yes General: Well nourished, Well developed, No Acute Distress Head: Normocephalic, Atraumatic Eyes: Perrl, EOMI ENT: Moist mucous membranes, No rhinorrhea Neck: Supple, Nontender Cardiovascular: Regular rate, Regular rhythm, No murmurs Respiratory: No distress, CTA bilaterally, Chest nontender Abdomen: Soft, Nontender, Nondistended, Normal bowel sounds Back: Nontender, Normal Inspection Extremities: Nontender, No edema Skin: Normal color, No rash Neurological: Alert, Oriented x3, Cranial nerves II-XII grossly intact, Normal Strength, Normal Sensation Psychological: Normal affect, Normal Mood Diagnostic/Tx/Re-eval - Medical Decision Making The patient symptoms do seem consistent with a gastroenteritis. Her daughter had similar symptoms. Her abdomen is soft and nontender. IV was established. She was given fluids and Zofran with persistent nausea. She was then given Phenergan and was feeling improved. The patient was able to tolerate oral fluids and Imodium. Labs do show a leukocytosis which I feel is likely reactive, as she has no abdominal tenderness. Metabolic panel was unremarkable. The patient was observed for 2 hours and is feeling improved. At this point, I do feel that she is safe for outpatient therapy. Impression 1. Gastroenteritis ED Disposition - Plan for ED Patient: Instructions: FOOD POISONING or GASTROENTERITIS (6y-Adult) Prescriptions: Dicyclomine HCl [Bentyl] 20 mg PO TIDAC #20 cap Prescription Printed proMETHazine tablet [Phenergan] 25 mg PO Q6H PRN PRN #10 tab PRN Reason: Nausea Prescription Printed Referrals: Gagandeep Pendleton MD [Primary Care Provider] -
[2019-04-28] MEDS: Ondansetron 4 MG/2 ML Vial IV (03:32)
[2019-04-28] MEDS: 0.9% Normal Saline 1,000 ML 1000 ML IV (03:32)
[2019-04-28 03:34] LABS: Absolute Lymphocyte Count 1.96 X10^3/uL (0.83-4.51); Absolute Neutrophil Count 16.6 X10^3/uL (2.0-7.7); Basophil# 0.05 X10^3/uL; Basophil% 0.2 % (0-1); Eosinophil# 0.22 X10^3/uL; Eosinophils% 1.1 % (0-5); Hematocrit 42.5 % (37-47); Hemoglobin 14.7 g/dL (12.0-15.0); Lymphocyte # 1.96 X10^3/ul (4.0); Lymphocyte % 9.7 % (19-41); Mean Corp Hgb Conc 34.6 g/dL (32-36); Mean Corpuscular Hgb 30.8 pg (27.0-32.0); Mean Corpuscular Volume 89.1 fL (81-99); Mean Platelet Vol. 10.9 fl (6.2-12.0); Monocyte# 1.28 X10^3/uL; Monocyte% 6.4 % (0-10); NRBC Flagged by Analyzer 0 % (0-5); Neutrophil # 16.56 X10^3/uL (2.7-7.7); Neutrophil % 82.3 % (47-70); Platelet Count 316 K/mm3 (150-450); RBC Distribution Width CV 13.2 % (11.6-14.6); RBC Distribution Width SD 43.3 fl (35.1-43.9); Red Blood Count 4.77 M/mm3 (4.2-5.4); White Blood Count 20.1 K/mm3 (4.4-11.0)
[2019-04-28 03:50] LABS: ALB/GLOB Ratio 0.9 RATIO (0.9-2.4); AST(SGOT) 12 U/L (15-37); Alanine Aminotransfer ALT/SGPT 18 U/L (13-56); Albumin, Serum 3.8 g/dL (3.2-5.0); Alkaline Phosphatase 101 U/L (45-117); Anion Gap 10 (5-15); BUN 14 mg/dL (7-18); BUN/Creat Ratio 14.2 RATIO (10-20); Calcium,Total 8.9 mg/dL (8.5-10.1); Chloride 109 mmol/L (98-107); Creatinine, Serum 0.99 mg/dL (0.55-1.02); EST Glomerular Filtration Rate 68 mL/min (>60); Est Glom Filt Rate - Afr Amer 82 mL/min (>60); Globulin 4.3 g/dL (2.2-4.2); Glucose 130 mg/dL (74-106); Potassium 3.5 mmol/L (3.5-5.1); Protein, Total 8.1 g/dL (6.4-8.2); Sodium Level 139 mmol/L (136-145)
[2019-04-28] MEDS: proMETHazine 25 MG/ML Syringe 12.5 MG IV (04:07)
[2019-04-28] MEDS: Loperamide 2 MG Capsule 4 MG PO (04:36)
[2019-04-28 05:18] VITALS: BP 129/74; PULSE 81; RESP 18; O2SAT 98
== END 2019-04-28 05:19 | disposition home or self-care (01) ==
LOC: ED 03:41
PROVIDERS: Emergency Provider Emergency Medicine; Family Provider Family Medicine; PCP Family Medicine
DX: K52.9 Noninfective gastroenteritis and colitis, unspecified (principal); F17.200 Nicotine dependence, unspecified, uncomplicated
CPT/HCPCS: 80053; 85025; 96361; 96374; 96375; 99284; A4216; J2405

== ENCOUNTER 2019-05-25 16:07 | Emergency (ER) | payer BC, SELFPAY ==
[2019-05-25 16:09] VITALS: BP 142/76; PULSE 110; RESP 20; TEMP 36.4; O2SAT 97; BMI 40.9
--- NOTE | 2019-05-25 16:25 | RAD_ITS ---
STUDY: X-RAY CHEST REASON FOR EXAM: Female, 38 years old. shortness of breath TECHNIQUE: AP portable COMPARISON: November 05, 2017 FINDINGS: There is prominence of lung markings in the lower lobes possibly representing mild subsegmental atelectasis... There is no demonstrated pleural abnormality. Normal size heart. Normal mediastinum and aime. Normal visualized pulmonary arteries. Normal visualized aortic arch and descending thoracic aorta. Normal visualized thoracic spine. Normal visualized ribs, clavicles, and shoulders. There is no demonstrated abnormality of the visualized soft tissue structures of the upper abdomen. RAD/Chest 1 View (Portable) IMPRESSION: Possible mild bibasilar subsegmental atelectasis. Electronically Signed: Carlos Woo MD at 16:48 EST , Service support ,
--- NOTE | 2019-05-25 17:19 | EKG12_ITS ---
Test Reason : SOB Blood Pressure : / mmHG Vent. Rate : 080 BPM Atrial Rate : 080 BPM P-R Int : 152 ms QRS Dur : 074 ms QT Int : 354 ms P-R-T Axes : 019 008 052 degrees QTc Int : 408 ms Normal sinus rhythm Normal ECG Confirmed by SHAYY BRICEÑO, LORENZA ([id number]), social media editor JAMES PEREIRA ([id number]) on 05/27/2019 2:37:04 PM Referred By: SANDI Confirmed By:VANESSA LUCAS MD
[2019-05-25 17:30] VITALS: PULSE 106; RESP 18
[2019-05-25] MEDS: Ipratropium/Albuterol Sulfate 3 ML AMPUL.NEB INHALATION (17:30)
[2019-05-25 17:53] LABS: Absolute Lymphocyte Count 1.96 X10^3/uL (0.83-4.51); Absolute Neutrophil Count 13.5 X10^3/uL (2.0-7.7); Basophil# 0.05 X10^3/uL; Basophil% 0.3 % (0-1); Eosinophil# 0.21 X10^3/uL; Eosinophils% 1.3 % (0-5); Hematocrit 40.6 % (37-47); Hemoglobin 13.7 g/dL (12.0-15.0); Lymphocyte # 1.96 X10^3/ul (4.0); Lymphocyte % 11.8 % (19-41); Mean Corp Hgb Conc 33.7 g/dL (32-36); Mean Corpuscular Hgb 31.1 pg (27.0-32.0); Mean Corpuscular Volume 92.1 fL (81-99); Mean Platelet Vol. 10.4 fl (6.2-12.0); Monocyte# 0.75 X10^3/uL; Monocyte% 4.5 % (0-10); NRBC Flagged by Analyzer 0 % (0-5); Neutrophil # 13.53 X10^3/uL (2.7-7.7); Neutrophil % 81.7 % (47-70); Platelet Count 279 K/mm3 (150-450); RBC Distribution Width SD 43.4 fl (35.1-43.9); Red Blood Count 4.41 M/mm3 (4.2-5.4); White Blood Count 16.6 K/mm3 (4.4-11.0)
[2019-05-25 18:07] VITALS: BP 124/93; PULSE 86; RESP 14; RESP 18; TEMP 36.4; O2SAT 97; O2SAT 98
[2019-05-25 18:13] LABS: Anion Gap 2 (5-15); BUN 10 mg/dL (7-18); BUN/Creat Ratio 14.3 RATIO (10-20); Chloride 109 mmol/L (98-107); EST Glomerular Filtration Rate 101 mL/min (>60); Est Glom Filt Rate - Afr Amer 122 mL/min (>60); Estimated Creatinine Clearance 99.98 ml/min; Glucose 94 mg/dL (74-106); Potassium 4.2 mmol/L (3.5-5.1); Sodium Level 137 mmol/L (136-145)
[2019-05-25 18:17] LABS: D-Dimer Quantitative (DVT/PE) 0.46 FEU/ug/m (0.27-0.49)
[2019-05-25 18:32] VITALS: O2SAT 95
[2019-05-25 19:01] VITALS: BP 124/67; PULSE 61; RESP 17; O2SAT 96
--- NOTE | 2019-05-25 19:02 | ED.DCSUM_ITS ---
- ER Visit Summary Date of Service: 05/25/19 Chief Complaint: Cannot breathe History of Present Illness: The patient is a 38 F with trouble breathing for several weeks. The patient has been treated with steroids, azithromycin, Tessalon Perles, inhalers, Mucinex, but nothing seems to help. Her symptoms are worse today. She has a cough and chest pain. She denies any history of heart disease or PE. Denies fevers. Physical Examination: Afebrile and vital signs unremarkable except for heart rate of 110. 97% on room air. Patient in no acute distress, moving, breathing, speaking comfortably. HEENT exam grossly unremarkable. Lungs diminished in all l[place]. Heart tachycardic but regular. Extremities soft and nontender. Skin normal. Test Results: EKG shows sinus rhythm at a rate of 80 with no signs of acute ischemia or infarction pattern. CBC, BMP, troponin, BNP, d-dimer unremarkable. Chest x-ray showed bibasilar atelectasis. Emergency Department Course and Treatment: Patient was treated with a DuoNeb treatment. Her work-up was reassuring. She has nothing to suggest PE, ACS, pneumonia. She may have a post viral cough. The symptoms are bothering her and she gets dizzy after coughing episodes. I believe she is appropriate for outpatient follow-up. She has seen her PCP, but has continued symptoms. She has an underlying history of asthma. I will refer her to pulmonology given her ongoing symptoms. Treatment Plan: As above Disposition: Discharge Impression: 1. Cough This note was generated with [employer] dictation software. It may contain incorrect words, spelling, and punctuation that were not noted in review of the chart prior to signing ED Disposition - Plan for ED Patient: Referrals: Gagandeep Pendleton MD [Primary Care Provider] -
--- NOTE | 2019-05-25 19:04 | ED.DEP ---
ED Disposition - Plan for ED Patient: Instructions: Controlling Asthma Triggers: Irritants Prescriptions: Levofloxacin [Levaquin] 750 mg PO DAILY #5 tab Prescription Printed Referrals: Gagan Flowers DO [STAFF PHYSICIAN] -
== END 2019-05-25 19:18 | disposition home or self-care (01) ==
LOC: ED 17:55
PROVIDERS: Emergency Provider Emergency Medicine; PCP Family Medicine
DX: R05 Cough (principal); R06.00 Dyspnea, unspecified; R07.9 Chest pain, unspecified; Z72.0 Tobacco use
CPT/HCPCS: 71045; 80048; 83880; 84484; 85025; 85379; 93005; 94640; 94760; 99284; A4216

== ENCOUNTER → 2019-06-02 12:52 | Outpatient (CLI) | payer BC, SELFPAY ==
[2019-05-25 16:09] VITALS: BMI 40.9
== END ==
LOC: LAB.FUTURE 12:54 → PSN 12:54
PROVIDERS: PCP Family Medicine; Referring Provider Family Medicine; Visit Provider Family Medicine
DX: R05 Cough (principal)
CPT/HCPCS: 87798

== ENCOUNTER 2019-07-02 22:08 | Emergency (ER) | payer BC, SELFPAY ==
[2019-07-02 22:09] VITALS: BP 144/94; PULSE 98; RESP 18; TEMP 36.9; O2SAT 96; BMI 37.8
--- NOTE | 2019-07-02 22:54 | ED.VIS.HA ---
History of Present Illness Chief Complaint: Headache Informant: Patient Onset: Today Context: Gradual Timing: Continuous Quality: Throbbing Associated Symptoms: Nausea, Vomiting, - - vertigo Narrative: Is a 38-year-old female with history of migraines as well as remote history of vertigo presenting with headache and neck pain. Patient states this morning when she woke up she had pain at the base of her head bilaterally. Throughout the day the pain is worsened especially on the right side. Is much worse when she tries to move her head to the left. For the past 2 hours she developed vertigo. She states it is worse when she tries to look to the left or move her head to the left. She has associated nausea and vomiting. Patient states she is tried Imitrex, Motrin, Tylenol, shower, heat and ice for her neck pain with no relief. She notes she has an aura with her vision and is seeing rainbows around everything. She denies any fever or rash. She denies any other complaints at this time. Past Medical History - Allergies and Home Meds Allergies/Adverse Reactions: Allergies amoxicillin Allergy (Verified 07/02/19 22:11) Hives calamine Allergy (Verified 07/02/19 22:11) Rash coconut oil Allergy (Verified 07/02/19 22:11) Rash erythromycin base [Erythromycin Base] Allergy (Verified 07/02/19 22:11) Hives fentanyl Allergy (Verified 07/02/19 22:11) Other seizures ferrous sulfate Allergy (Verified 07/02/19 22:11) Anaphylaxis latex Allergy (Verified 07/02/19 22:11) Rash latex condom onion Allergy (Verified 07/02/19 22:11) swollen tongue Penicillins Allergy (Verified 07/02/19 22:11) Hives tobramycin Allergy (Verified 07/02/19 22:11) Other burning, redness atomoxetine [From Strattera] Adverse Reaction (Verified 07/02/19 22:11) Other anal bleeding diphenhydramine HCl [From Benadryl] Adverse Reaction (Verified 07/02/19 22:11) Chest tightness IV dose only, paranoia [place] 40 FOOD DYE Allergy (Uncoded 07/02/19 22:11) Anaphylaxis Primary Care Physician: Gagandeep Pendleton MD [Primary Care Provider] - Past Medical History: - - migraine headache Surgical History: noncontributory, - - c section Lives: With Family Smoking Status: Current every day smoker Alcohol: None Drugs: None Review of Systems General: Denies: Chills, Fever, Malaise, Sweats Eyes: Reports: Visual changes - bilaterally - aura. Denies: Diplopia ENT: Denies: Bilateral ear pain, Rhinorrhea, Sore throat Cardiovascular: Denies: Chest pain, Palpitations Respiratory: Denies: Dyspnea, Cough, Dyspnea on exertion Gastrointestinal: Reports: Nausea, Vomiting. Denies: Abdominal pain, Diarrhea, Melena, Hematochezia Genitourinary: Denies: Dysuria, Hematuria, Frequency Musculoskeletal: Reports: Neck pain - right sided . Denies: Back pain, Extremity Pain Skin: Denies: Rash, Wounds Neurological: Reports: Headache, - - vertigo. Denies: Weakness, Numbness Physical Exam Vital Signs/Narrative: Vital Signs Temp Pulse Resp BP Pulse Ox 07/02/19 22:09 98.4 F 98 18 144/94 H 96 Inital Vital Signs reviewed: Yes General: Well nourished, Well developed Head: NC, AT Eyes: Perrl, EOMI, - - Fatiguing horizontal nystagmus with leftward gaze, hints exam is consistent with peripheral vertigo ENT: Moist mucous membranes, No rhinorrhea, TM's clear Neck: Supple, No Lymphadenopathy, No JVD, Nontender, No Meningismus, Paraspinal Tenderness - Right-sided Cardiovascular: Regular rate, Regular rhythm, No murmurs Respiratory: No distress, CTA bilaterally, Chest nontender Abdomen: Soft, Nontender, Nondistended, Normal bowel sounds Back: Nontender, Normal Inspection Extremities: Nontender, No edema Skin: Normal color, No rash Neuro: Alert, Oriented x3, Cranial nerves II-XII grossly intact, Normal Strength, Normal Sensation, Normal DTR, Normal Gait, - - Normal coordination with [id number], no truncal ataxia. Negative for: Abnormal Gait Psychological: Normal affect Diagnostic/Tx/Re-eval - Medical Decision Making Patient is evaluated for headache as well as vertigo. Patient has an extensive history of migraine headaches as well as a history of vertigo. Her neurologic exam is consistent with peripheral vertigo. She does not have any focal neurologic deficits. Do not think repeat head imaging is indicated at this time. She does not have any nuchal rigidity. I do not suspect meningitis. I do not think an LP is indicated at this time. Patient seems to have paraspinal muscle tenderness which is likely contributing to her headache. She mentions she has had a cold and nasal congestion for the past month which might be contributing to her peripheral vertigo. Patient is treated with migraine cocktail as well as 2.5 of oral Valium. On reevaluation patient has significant improvement. The lights are on and she is now eating [employer]. She states she is ready to go home. Patient will be discharged home with a short course of meclizine as well as Valium to be used as needed. Patient is counseled on signs and symptoms requiring return to the emergency room. Patient verbalizes agreement and understand this plan. Patient discharged home in stable and improved condition. ED Disposition - Plan for ED Patient: Disposition: Home or Assisted Living Diagnosis: Peripheral vertigo, Migraine headache with aura Instructions: Benign Positional Vertigo, HEADACHE, Unspecified Prescriptions: Meclizine HCl 25 mg PO TID PRN PRN #20 tab PRN Reason: Vertigo Prescription Printed Ibuprofen [Motrin] 600 mg PO Q6H PRN PRN #20 tab PRN Reason: headache Prescription Printed Diazepam [Valium] 2 mg PO TID PRN PRN #10 tab PRN Reason: Muscle Spasm Prescription Printed Referrals: Gagandeep Pendleton MD [Primary Care Provider] -
[2019-07-02] MEDS: 0.9% Normal Saline 1,000 ML 999 ML IV (23:10)
[2019-07-02] MEDS: diazePAM 5 MG Tablet 2.5 MG PO (23:10)
[2019-07-02] MEDS: Ketorolac 15 MG/ML Vial IV (23:11)
[2019-07-02] MEDS: proCHLORPERazine 10 MG/2 ML Vial IV (23:11)
[2019-07-03 01:18] VITALS: BP 135/85; PULSE 82; RESP 18; TEMP 37.1; O2SAT 100
== END 2019-07-03 01:29 | disposition home or self-care (01) ==
PROVIDERS: Emergency Provider Emergency Medicine; PCP Family Medicine
DX: H81.399 Other peripheral vertigo, unspecified ear (principal); G43.109 Migraine with aura, not intractable, without status migrainosus; F17.200 Nicotine dependence, unspecified, uncomplicated; Z88.0 Allergy status to penicillin; Z88.1 Allergy status to other antibiotic agents; Z88.8 Allergy status to other drugs, medicaments and biological substances; Z91.040 Latex allergy status
CPT/HCPCS: 96361; 96374; 96375; 99283; J7030; A4216

== ENCOUNTER 2019-10-30 16:48 | Emergency (ER) | payer BC, SELFPAY ==
[2019-10-30 16:50] VITALS: BP 137/66; PULSE 117; RESP 18; TEMP 36.8; O2SAT 97; BMI 37.4
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
== END 2019-10-30 18:45 | disposition home or self-care (01) ==
PROVIDERS: Emergency Provider Emergency Medicine; PCP Family Medicine
DX: S16.1XXA Strain of muscle, fascia and tendon at neck level, initial encounter (principal); V22.4XXA Motorcycle driver injured in collision with two- or three-wheeled motor vehicle in traffic accident, initial encounter; Y92.410 Unspecified street and highway as the place of occurrence of the external cause; F17.200 Nicotine dependence, unspecified, uncomplicated; F41.9 Anxiety disorder, unspecified; F90.9 Attention-deficit hyperactivity disorder, unspecified type; J45.909 Unspecified asthma, uncomplicated; Z88.0 Allergy status to penicillin; Z88.1 Allergy status to other antibiotic agents; Z88.8 Allergy status to other drugs, medicaments and biological substances; Z91.040 Latex allergy status; Y93.89 Activity, other specified; Y99.9 Unspecified external cause status
CPT/HCPCS: 71250; 72100; 72125; 99282

== ENCOUNTER 2020-02-28 21:04 | Emergency (ER) | payer BC, SELFPAY ==
[2020-02-28 21:04] VITALS: BP 131/80; PULSE 108; RESP 18; TEMP 36.2; O2SAT 97; BMI 35.8
--- NOTE | 2020-02-28 21:27 | ED.DCSUM_ITS ---
History of Present Illness Chief Complaint: Allergic Reaction Informant: Patient Onset: Yesterday Context: Gradual Onset Timing: Continuous Current Severity: Moderate Maximum Severity: Moderate Narrative: The patient is a 39-year-old female with history of eczema that presents to the emergency department with allergic reaction. The patient states that she used a new hair dye yesterday. She states that she started to have a rash on the back of her neck. She did not think much of it because this is usually where she gets her eczema. Throughout today, she had increasing pain of her scalp. She states that she had more swelling. She states that her hair has been falling out. She describes it as intensely itching. Prior similar symptoms: No Recent Illness/Hospitalization: No Past Medical History - Allergies and Home Meds Allergies/Adverse Reactions: Allergies amoxicillin Allergy (Verified 02/28/20 21:17) Hives calamine Allergy (Verified 02/28/20 21:17) Rash coconut oil Allergy (Verified 02/28/20 21:17) Rash erythromycin base [Erythromycin Base] Allergy (Verified 02/28/20 21:17) Hives fentanyl Allergy (Verified 02/28/20 21:17) Other seizures ferrous sulfate Allergy (Verified 02/28/20 21:17) Anaphylaxis latex Allergy (Verified 02/28/20 21:17) Rash latex condom onion Allergy (Verified 02/28/20 21:17) swollen tongue Penicillins Allergy (Verified 02/28/20 21:17) Hives tobramycin Allergy (Verified 02/28/20 21:17) Other burning, redness atomoxetine [From Strattera] Adverse Reaction (Verified 02/28/20 21:17) Other anal bleeding diphenhydramine HCl [From Benadryl] Adverse Reaction (Verified 02/28/20 21:17) Chest tightness IV dose only, paranoia [place] 40 FOOD DYE Allergy (Uncoded 02/28/20 21:17) Anaphylaxis Primary Care Physician: Gagandeep Pendleton MD [Primary Care Provider] - Prior records reviewed: Yes Past Medical History: - - Eczema Surgical History: noncontributory, - - c section Smoking Status: Current every day smoker Review of Systems General: Denies: Chills, Fever, Sweats Eyes: Denies: Visual changes - bilaterally, Diplopia ENT: Denies: Rhinorrhea, Sore throat Cardiovascular: Denies: Chest pain, Palpitations Respiratory: Denies: Dyspnea, Cough, Dyspnea on exertion Gastrointestinal: Denies: Abdominal pain, Nausea, Vomiting, Diarrhea, Melena, Hematochezia Genitourinary: Denies: Dysuria, Hematuria, Frequency Musculoskeletal: Denies: Back pain, Extremity Pain Skin: Reports: Rash. Denies: Wounds Neurological: Denies: Headache, Weakness, Numbness Physical Exam Vital Signs/Narrative: Vital Signs Temp Pulse Resp BP Pulse Ox 02/28/20 21:04 97.1 F L 108 H 18 131/80 H 97 Inital Vital Signs reviewed: Yes General: Well nourished, Well developed, No Acute Distress Head: Normocephalic, Atraumatic Eyes: Perrl, EOMI ENT: Moist mucous membranes, No rhinorrhea Neck: Supple, Nontender Cardiovascular: Regular rate, Regular rhythm, No murmurs Respiratory: No distress, CTA bilaterally, Chest nontender Abdomen: Soft, Nontender, Nondistended, Normal bowel sounds Back: Nontender, Normal Inspection Extremities: Nontender, No edema Skin: Normal color, Rash - The patient has urticarial raised rash of the scalp. There is no cellulitis or crusting. There is no streaking. Neurological: Alert, Oriented x3, Cranial nerves II-XII grossly intact, Normal Strength, Normal Sensation Psychological: Normal affect, Normal Mood Diagnostic/Tx/Re-eval - Medical Decision Making Patient presents with allergic reaction. She does have history of eczema. It is contained to the scalp. There is no evidence of cellulitis. It does seem more consistent with a chemical reaction. The patient will be started on prednisone. She is given Vistaril to help with the itching. She was counseled on concerning symptoms and reasons to return. She will be discharged home. Impression 1. Allergic reaction of scalp ED Disposition - Plan for ED Patient: Instructions: ED ADVERSE DRUG REACTION Allergic Prescriptions: Prednisone [Deltasone] 60 mg PO DAILY #15 tab Prescription Printed hydrOXYzine pamoate capsule [Vistaril] 50 mg PO TID PRN PRN #30 cap PRN Reason: Itching Prescription Printed Referrals: Gagandeep Pendleton MD [Primary Care Provider] -
[2020-02-28] MEDS: predniSONE 20 MG Tablet 60 MG PO (21:37)
[2020-02-28] MEDS: hydrOXYzine PAM 25 MG Capsule 50 MG PO (21:37)
[2020-02-28 21:38] VITALS: RESP 16
== END 2020-02-28 21:42 | disposition home or self-care (01) ==
LOC: ED 21:35
PROVIDERS: Emergency Provider Emergency Medicine; PCP Family Medicine
DX: T78.40XA Allergy, unspecified, initial encounter (principal); F17.200 Nicotine dependence, unspecified, uncomplicated
CPT/HCPCS: 99281

== ENCOUNTER 2020-04-14 14:37 | Emergency (ER) | payer BC, SELFPAY ==
[2020-04-14 14:38] VITALS: BP 127/84; PULSE 92; RESP 24; TEMP 35.1; O2SAT 100; BMI 34.3
[2020-04-14] MEDS: Meclizine HCl 25 MG Tablet PO (14:52)
[2020-04-14] MEDS: proMETHazine 25 MG Tablet PO (14:52)
--- NOTE | 2020-04-14 15:00 | ED.DCSUM_ITS ---
History of Present Illness Chief Complaint: Dizziness Informant: Patient Onset: Days Context: Gradual Onset Timing: Intermittent Current Severity: Moderate Maximum Severity: Moderate Narrative: Patient is a 39-year-old female with history of psoriasis who presents to the emergency department vertiginous symptoms. Patient states she has a history of vertigo. She states over the past 3 days, her symptoms have been worse when she lays on the left side. She states today, she was going to the bathroom. She states she stood up and got acutely dizzy that she describes a sensation of motion. She states he lost her balance and fell. She struck her left wrist but did not strike her head. She denies any trouble speaking or swallowing. She denies headache or vision change. She has no history of stroke. She is otherwise been in her normal state of health. Prior similar symptoms: Yes Recent Illness/Hospitalization: No Past Medical History - Allergies and Home Meds Allergies/Adverse Reactions: Allergies amoxicillin Allergy (Verified 02/28/20 21:17) Hives calamine Allergy (Verified 02/28/20 21:17) Rash coconut oil Allergy (Verified 04/14/20 14:38) Rash erythromycin base [Erythromycin Base] Allergy (Verified 04/14/20 14:38) Hives fentanyl Allergy (Verified 04/14/20 14:38) Other seizures ferrous sulfate Allergy (Verified 04/14/20 14:38) Anaphylaxis latex Allergy (Verified 04/14/20 14:38) Rash latex condom onion Allergy (Verified 04/14/20 14:38) swollen tongue Penicillins Allergy (Verified 04/14/20 14:38) Hives tobramycin Allergy (Verified 04/14/20 14:38) Other burning, redness atomoxetine [From Strattera] Adverse Reaction (Verified 04/14/20 14:38) Other anal bleeding diphenhydramine HCl [From Benadryl] Adverse Reaction (Verified 04/14/20 14:38) Chest tightness IV dose only, paranoia [place] 40 FOOD DYE Allergy (Uncoded 02/28/20 21:17) Anaphylaxis Primary Care Physician: Gagandeep Pendleton MD [Primary Care Provider] - Prior records reviewed: Yes Past Medical History: - Surgical History: noncontributory, - - c section Smoking Status: Current every day smoker Review of Systems ROS: - Psoriasis General: Denies: Chills, Fever, Sweats Eyes: Denies: Visual changes - bilaterally, Diplopia ENT: Denies: Rhinorrhea, Sore throat Cardiovascular: Denies: Chest pain, Palpitations Respiratory: Denies: Dyspnea, Cough, Dyspnea on exertion Gastrointestinal: Denies: Abdominal pain, Nausea, Vomiting, Diarrhea, Melena, Hematochezia Genitourinary: Denies: Dysuria, Hematuria, Frequency Musculoskeletal: Denies: Back pain, Extremity Pain Skin: Denies: Rash, Wounds Neurological: Denies: Headache, Weakness, Numbness Physical Exam Vital Signs/Narrative: Vital Signs Temp Pulse Resp BP Pulse Ox 04/14/20 14:38 95.2 F L 92 24 H 127/84 H 100 Inital Vital Signs reviewed: Yes General: Well nourished, Well developed, No Acute Distress Head: Normocephalic, Atraumatic Eyes: Perrl, EOMI ENT: Moist mucous membranes, No rhinorrhea Neck: Supple, Nontender Cardiovascular: Regular rate, Regular rhythm, No murmurs Respiratory: No distress, CTA bilaterally, Chest nontender Abdomen: Soft, Nontender, Nondistended, Normal bowel sounds Back: Nontender, Normal Inspection Extremities: No edema, Tenderness - Tender over the ulna of the left wrist. Normal pulses. Anterior interosseous, posterior interosseous, ulnar nerve preserved. Skin: Normal color, No rash Neurological: Alert, Oriented x3, Cranial nerves II-XII grossly intact, Normal Strength, Normal Sensation Psychological: Normal affect, Normal Mood Diagnostic/Tx/Re-eval - Medical Decision Making Patient presents with exacerbation of vertigo. Her neurologic exam is reassuring. She states she had improvement with meclizine and Phenergan in the past. She was given these medications orally with improvement. She did suffer a left wrist injury. I did obtain plain films. They were reviewed by myself and the radiologist. There is no evidence of fracture dislocation. Patient was placed in a Velcro wrist splint for comfort. She will be continued on symptomatic control. She will be discharged home. Impression 1. Left wrist contusion 2. Vertigo ED Disposition - Plan for ED Patient: Instructions: ED Vertigo, Unspecified Prescriptions: Meclizine HCl 25 mg PO TID PRN #30 tab PRN Reason: Dizziness Prescription Printed proMETHazine tablet [Phenergan] 25 mg PO Q6H PRN PRN #10 tab PRN Reason: Nausea Prescription Printed Referrals: Gagandeep Pendleton MD [Primary Care Provider] -
--- NOTE | 2020-04-14 15:06 | RAD_ITS ---
STUDY: X-RAY - LEFT WRIST REASON FOR EXAM: Female, 39 years old. PAIN TECHNIQUE: 3 view(s) of the wrist were obtained. COMPARISON: None. FINDINGS: Normal visualized distal radius and ulna. Normal radiocarpal articulation. Normal distal radioulnar articulation. Normal carpal bones. Normal carpal articulations. Normal carpometacarpal articulation of the thumb. Normal second through fifth carpometacarpal articulations. Normal visualized metacarpal bones. The soft tissue structures are unremarkable. RAD/Wrist min 3 Views IMPRESSION: No fracture or malalignment. Electronically Signed: Noel Ortiz MD ([place]) at 15:23 EST , Service support ,
[2020-04-14 15:31] VITALS: RESP 17
== END 2020-04-14 15:32 | disposition home or self-care (01) ==
LOC: ED 15:01
PROVIDERS: Emergency Provider Emergency Medicine; PCP Family Medicine
DX: R42 Dizziness and giddiness (principal); S60.212A Contusion of left wrist, initial encounter; W20.8XXA Other cause of strike by thrown, projected or falling object, initial encounter; Y93.89 Activity, other specified; Y92.002 Bathroom of unspecified non-institutional (private) residence as the place of occurrence of the external cause; Y99.9 Unspecified external cause status; F17.200 Nicotine dependence, unspecified, uncomplicated; Z88.0 Allergy status to penicillin; Z88.1 Allergy status to other antibiotic agents; Z88.8 Allergy status to other drugs, medicaments and biological substances; Z91.040 Latex allergy status
CPT/HCPCS: 73110; 99285

== ENCOUNTER 2020-05-03 16:40 | Emergency (ER) | payer BC, SELFPAY ==
[2020-05-03 16:41] VITALS: BP 130/79; PULSE 106; RESP 18; TEMP 36.6; O2SAT 100; BMI 36.5
--- NOTE | 2020-05-03 17:07 | RAD_ITS ---
STUDY: X-RAY - RIGHT KNEE REASON FOR EXAM: Female, 39 years old. Right knee pain, sudden weakness TECHNIQUE: 4 view(s) of the knee. COMPARISON: None. FINDINGS: Normal visualized distal femur. Normal visualized proximal tibia and fibula. Normal proximal tibiofibular articulation. Normal medial femorotibial compartment. Normal lateral femorotibial compartment. Normal patellofemoral articulation. The soft tissue structures are unremarkable. RAD/Knee 4 or More Views IMPRESSION: Normal x-ray examination of the knee. Electronically Signed: Benito Cisneros MD at 17:24 EST , Service support ,
--- NOTE | 2020-05-03 17:15 | ED.DCSUM_ITS ---
- ER Visit Summary Date of Service: 05/03/20 Chief Complaint: Right knee pain History of Present Illness: The patient is a 39 F who presents with right knee pain that began yesterday. Patient states she felt a pop in her knee yesterday. Patient states that it did not bother her much yesterday but today she felt another pop. Patient states that whenever she ambulates she hears a popping noise. Patient states her pain is worse with ambulation. Patient states while she was at work her pain became worse and her boss told her to come to the emergency department to get checked. Patient states she has been wearing a knee brace which has been helping. Patient describes her pain is constant dull ache but is sharp and stabbing with weightbearing. Physical Examination: Vital signs are stable. Patient is afebrile. Patient is in no acute distress. Musculoskeletal exam reveals tenderness over the medial aspect of the right knee. There is no effusion. Range of motion was limited in all motions of the right knee secondary to pain. There is no obvious deformity noted. Extensor mechanism is intact. Strength is 5/5 bilateral in the lower extremities. Pedal pulses are equal bilaterally. There is no calf tenderness noted. There is no laxity appreciated however, the patient is guarding on exam. Test Results: X-rays of the right knee were obtained. There are 4 views. On my interpretation, there is no acute fracture or loose body noted. There is no effusion noted. There is no soft tissue swelling. Radiologist also interpreted the x-rays and agrees. Emergency Department Course and Treatment: Patient was given a dose of Naprosyn here. Patient was advised of her findings. Patient was instructed to ice and elevate the right knee. Patient was instructed to follow-up with her primary care physician in 5 to 7 days for further evaluation. Patient understood and was agreeable with the plan. All questions were answered. Disposition: Discharge home Impression: 1. Right knee sprain This note was generated with [employer] dictation software. It may contain incorrect words, spelling, and punctuation that were not noted in review of the chart prior to signing ED Disposition - Plan for ED Patient: Disposition: Home or Assisted Living Diagnosis: Right knee sprain Instructions: ED Knee Sprain Prescriptions: Naproxen [Naprosyn] 500 mg PO BID PRN #20 tab Prescription Printed Referrals: Gagandeep Pendleton MD [Primary Care Provider] - 3-5 Days
[2020-05-03] MEDS: Naproxen 250 MG Tablet 500 MG PO (17:46)
== END 2020-05-03 17:56 | disposition home or self-care (01) ==
LOC: ED 17:22
PROVIDERS: Emergency Provider Emergency Medicine; PCP Family Medicine
DX: S83.91XA Sprain of unspecified site of right knee, initial encounter (principal); X50.3XXA Overexertion from repetitive movements, initial encounter; Y93.9 Activity, unspecified; Y92.89 Other specified places as the place of occurrence of the external cause; Y99.9 Unspecified external cause status
CPT/HCPCS: 73564; 99283

== ENCOUNTER 2020-06-26 16:12 | Emergency (ER) | payer BC, SELFPAY ==
[2020-06-26 16:13] VITALS: BP 125/83; PULSE 104; PULSE 99; RESP 16; TEMP 35.9; O2SAT 98; BMI 36.8
--- NOTE | 2020-06-26 16:36 | EKG12_ITS ---
Test Reason : SYNCOPE Blood Pressure : / mmHG Vent. Rate : 080 BPM Atrial Rate : 080 BPM P-R Int : 166 ms QRS Dur : 078 ms QT Int : 376 ms P-R-T Axes : 007 -04 005 degrees QTc Int : 433 ms Normal sinus rhythm Inferior infarct , age undetermined Abnormal ECG Confirmed by TONYA BRICEÑO, KISHA ([id number]), story editor JOEL SAUNDERS ([id number]) on 06/27/2020 12:53:14 PM Referred By: ANH Confirmed By:KISHA CASTANEDA MD
--- NOTE | 2020-06-26 16:38 | ED.DCSUM_ITS ---
History of Present Illness Chief Complaint: Dizziness Informant: Patient Onset: Today Current Severity: - - Resolved Maximum Severity: Moderate Narrative: Patient presents after a dizzy episode with vomiting. Patient was at work today. She states all of a sudden she became hot and dizzy. She stumbled backwards and fell and vomited once. She denies losing consciousness. She states that soon as she vomited she felt better and feels back to her baseline at this time. She denies having chest pain or palpitations. She does have a history of vertigo but states this was not quite the same. Ironically patient states her 2 daughters over the weekend had similar episodes of not feeling well, vomiting once, and then seeming to be back to their normal selves. - Past Medical History (1) Migraines Status: Chronic (2) Vertigo Status: Resolved (3) ADHD Status: Chronic (4) Anxiety Status: Chronic (5) Asthma Status: Chronic Past Medical History - Allergies and Home Meds Allergies/Adverse Reactions: Allergies amoxicillin Allergy (Verified 05/03/20 16:44) Hives calamine Allergy (Verified 05/03/20 16:44) Rash coconut oil Allergy (Verified 05/03/20 16:44) Rash erythromycin base [Erythromycin Base] Allergy (Verified 05/03/20 16:44) Hives fentanyl Allergy (Verified 05/03/20 16:44) Other seizures ferrous sulfate Allergy (Verified 05/03/20 16:44) Anaphylaxis latex Allergy (Verified 05/03/20 16:44) Rash latex condom onion Allergy (Verified 05/03/20 16:44) swollen tongue Penicillins Allergy (Verified 05/03/20 16:44) Hives tobramycin Allergy (Verified 05/03/20 16:44) Other burning, redness atomoxetine [From Strattera] Adverse Reaction (Verified 05/03/20 16:44) Other anal bleeding diphenhydramine HCl [From Benadryl] Adverse Reaction (Verified 05/03/20 16:44) Chest tightness IV dose only, paranoia [place] 40 FOOD DYE Allergy (Uncoded 05/03/20 16:44) Anaphylaxis Primary Care Physician: Gagandeep Pendleton MD [Primary Care Provider] - Prior records reviewed: Yes Surgical History: noncontributory, - - c section Lives: With Family Smoking Status: Current every day smoker Review of Systems General: Denies: Chills, Fever Eyes: Denies: Visual changes - bilaterally ENT: Denies: Bilateral ear pain Cardiovascular: Denies: Chest pain, Palpitations Respiratory: Denies: Dyspnea, Cough Gastrointestinal: Reports: Nausea, Vomiting. Denies: Abdominal pain, Diarrhea Genitourinary: Denies: Dysuria Musculoskeletal: Denies: Swelling, Extremity Pain Skin: Denies: Rash Neurological: Denies: Headache, Weakness, Parasthesia Psych: Denies: Depression Hematologic: Denies: Easy bruising, Easy bleeding Allergy: Denies: Uticaria Physical Exam Vital Signs/Narrative: Vital Signs Temp Pulse Resp BP Pulse Ox 06/26/20 16:13 96.7 F L 99 16 125/83 H 98 Inital Vital Signs reviewed: Yes General: Well nourished, Well developed Head: Normocephalic ENT: Moist mucous membranes Neck: Supple Cardiovascular: Regular rate, Regular rhythm Respiratory: No distress, CTA bilaterally Abdomen: Soft, Nontender, Normal bowel sounds Extremities: Nontender Skin: Normal color Neurological: Alert, Oriented x3, Normal Strength, Normal Sensation Psychological: Normal affect Diagnostic/Tx/Re-eval Laboratory Results 06/26/20 06/26/20 06/26/20 16:59 16:59 16:59 WBC 12.1 H RBC 4.40 Hgb 13.3 Hct 40.7 MCV 92.5 MCH 30.2 MCHC 32.7 RDW Std Deviation 41.7 RDW Coeff of [place] 12.3 Plt Count 286 MPV 11.0 Immature Gran % (Auto) 0.400 Neut % (Auto) 62.6 Lymph % (Auto) 27.6 [place] % (Auto) 7.2 Eos % (Auto) 1.8 Baso % (Auto) 0.4 Absolute Neuts (auto) 7.6 Absolute Lymphs (auto) 3.34 Nucleated RBC % 0 Sodium 138 Potassium 3.4 L Chloride 108 H Carbon Dioxide 24.0 Anion Gap 6 BUN 12 Creatinine 0.83 Estim Creat Clear Calc 90.25 Est GFR (MDRD) Af Amer 100 Est GFR (MDRD) Non-Af 82 BUN/Creatinine Ratio 14.5 Glucose 74 Calcium 8.6 Serum , Qual NEGATIVE Urine Color Urine Clarity Urine pH Ur Specific [place] Urine Protein Urine Glucose (UA) Urine Ketones Urine Occult Blood Urine Nitrite Urine Bilirubin Urine Urobilinogen Ur Leukocyte Esterase Urine RBC Urine WBC Ur Squamous Epith Cells Urine Bacteria Urine Mucus 06/26/20 17:29 WBC RBC Hgb Hct MCV MCH MCHC RDW Std Deviation RDW Coeff of [place] Plt Count MPV Immature Gran % (Auto) Neut % (Auto) Lymph % (Auto) [place] % (Auto) Eos % (Auto) Baso % (Auto) Absolute Neuts (auto) Absolute Lymphs (auto) Nucleated RBC % Sodium Potassium Chloride Carbon Dioxide Anion Gap BUN Creatinine Estim Creat Clear Calc Est GFR (MDRD) Af Amer Est GFR (MDRD) Non-Af BUN/Creatinine Ratio Glucose Calcium Serum , Qual Urine Color Yellow Urine Clarity Clear Urine pH 6.0 Ur Specific [place] 1.025 Urine Protein 30 H Urine Glucose (UA) Normal Urine Ketones Negative Urine Occult Blood Negative Urine Nitrite Negative Urine Bilirubin Negative Urine Urobilinogen Normal Ur Leukocyte Esterase Negative Urine RBC 0 SEEN Urine WBC 0 SEEN Ur Squamous Epith Cells 0-5 SEEN Urine Bacteria 0 SEEN Urine Mucus 0 SEEN - EKG Initial EKG Interpretation: Sinus Rhythm - Sinus at 80 with no acute ischemia. - Medical Decision Making Patient was given IV fluids here. She was on quality assurance monitor chassis throughout her ED stay with no significant arrhythmia. Patient ambulated to the restroom to provide urine sample without difficulty. On review of labs potassium is slightly low. This will be replaced orally here. Patient at this time feels back to her baseline and will be discharged. I will write her prescription for Antivert and Phenergan which she is currently out of due to her history of vertigo with similar symptoms. Return instructions are provided. ED Disposition - Plan for ED Patient: Disposition: Home or Assisted Living Diagnosis: Dizziness Instructions: ED Dizziness, Uncertain Cause Prescriptions: Meclizine HCl [Antivert] 25 mg PO 4X/DAY PRN PRN #20 tab PRN Reason: Dizziness Transmission Status: Pending to [id number] proMETHazine tablet [Phenergan] 25 mg PO Q6H PRN PRN #10 tab PRN Reason: Nausea Transmission Status: Pending to [id number] Referrals: Gagandeep Pendleton MD [Primary Care Provider] - 3-5 Days if not improving
[2020-06-26 17:10] LABS: Absolute Lymphocyte Count 3.34 X10^3/uL (0.83-4.51); Absolute Neutrophil Count 7.6 X10^3/uL (2.0-7.7); Basophil# 0.05 X10^3/uL; Basophil% 0.4 % (0-1); Eosinophil# 0.22 X10^3/uL; Eosinophils% 1.8 % (0-5); Hematocrit 40.7 % (37-47); Hemoglobin 13.3 g/dL (12.0-15.0); Lymphocyte # 3.34 X10^3/ul (4.0); Lymphocyte % 27.6 % (19-41); Mean Corp Hgb Conc 32.7 g/dL (32-36); Mean Corpuscular Hgb 30.2 pg (27.0-32.0); Mean Corpuscular Volume 92.5 fL (81-99); Monocyte# 0.87 X10^3/uL; Monocyte% 7.2 % (0-10); NRBC Flagged by Analyzer 0 % (0-5); Neutrophil # 7.58 X10^3/uL (2.7-7.7); Neutrophil % 62.6 % (47-70); Platelet Count 286 K/mm3 (150-450); RBC Distribution Width CV 12.3 % (11.6-14.6); RBC Distribution Width SD 41.7 fl (35.1-43.9); White Blood Count 12.1 K/mm3 (4.4-11.0)
[2020-06-26 17:21] LABS: Anion Gap 6 (5-15); BUN 12 mg/dL (7-18); BUN/Creat Ratio 14.5 RATIO (10-20); Calcium,Total 8.6 mg/dL (8.5-10.1); Chloride 108 mmol/L (98-107); Creatinine, Serum 0.83 mg/dL (0.55-1.02); EST Glomerular Filtration Rate 82 mL/min (>60); Est Glom Filt Rate - Afr Amer 100 mL/min (>60); Estimated Creatinine Clearance 90.25 ml/min; Glucose 74 mg/dL (74-106); Potassium 3.4 mmol/L (3.5-5.1); Sodium Level 138 mmol/L (136-145)
[2020-06-26 17:25] LABS: Internal QC Validated? YES +Cl - CLEAR BKGD; Pregnancy, Serum, hCG Quali. NEGATIVE Negative
[2020-06-26 17:33] LABS: Bacteria 0 SEEN /hpf (None Seen); Mucous, Urine 0 SEEN /hpf (<or=2+); Red Blood Cells-Urine 0 SEEN /hpf (0-5); White Blood Cells 0 SEEN /hpf (0-5)
[2020-06-26 17:35] LABS: Color, Urine Yellow (Yellow); Glucose, Dipstick Normal (Normal); Ketone-Dipstick Negative (Negative); Leukocyte Esterase-Dipstick Negative /ul (Negative); Nitrite-Dipstick Negative (Negative); Occult Blood-Urine Negative /ul (Negative); Protein-Dipstick 30 mg/dl (Negative); Specific Gravity, Urine 1.025 (1.002-1.030); Urine Bilirubin Dipstick Negative (Negative); Urine Clarity Clear (Clear); Urine Urobilinogen Normal (Normal)
[2020-06-26 17:43] LABS: Squamous Epithelial Cells - UA 0-5 SEEN /hpf (5-10)
[2020-06-26 18:06] VITALS: BP 129/74; PULSE 62; RESP 17; O2SAT 99
[2020-06-26] MEDS: Potassium Chloride Oral Tablet 20 MEQ 40 MEQ PO (18:06)
== END 2020-06-26 18:07 | disposition home or self-care (01) ==
PROVIDERS: Emergency Provider Emergency Medicine; PCP Family Medicine
DX: R42 Dizziness and giddiness (principal); J45.909 Unspecified asthma, uncomplicated; F41.9 Anxiety disorder, unspecified; F90.9 Attention-deficit hyperactivity disorder, unspecified type; G43.909 Migraine, unspecified, not intractable, without status migrainosus; F17.200 Nicotine dependence, unspecified, uncomplicated
CPT/HCPCS: 80048; 81001; 84703; 85025; 93005; 99285; J7030; A4216

== ENCOUNTER 2020-08-13 14:07 | Emergency (ER) | payer BC, SELFPAY ==
[2020-08-13 14:07] VITALS: BP 146/93; PULSE 77; RESP 18; TEMP 36.8; O2SAT 97; BMI 36.0
[2020-08-13 14:24] LABS: Absolute Lymphocyte Count 2.79 X10^3/uL (0.83-4.51); Absolute Neutrophil Count 5.9 X10^3/uL (2.0-7.7); Basophil# 0.06 X10^3/uL; Basophil% 0.6 % (0-1); Eosinophil# 0.34 X10^3/uL; Eosinophils% 3.4 % (0-5); Hematocrit 44.1 % (37-47); Hemoglobin 14.5 g/dL (12.0-15.0); Lymphocyte # 2.79 X10^3/ul (4.0); Lymphocyte % 28.2 % (19-41); Mean Corp Hgb Conc 32.9 g/dL (32-36); Mean Corpuscular Hgb 29.9 pg (27.0-32.0); Mean Corpuscular Volume 90.9 fL (81-99); Mean Platelet Vol. 10.9 fl (6.2-12.0); Monocyte# 0.75 X10^3/uL; Monocyte% 7.6 % (0-10); NRBC Flagged by Analyzer 0 % (0-5); Neutrophil # 5.94 X10^3/uL (2.7-7.7); Neutrophil % 59.9 % (47-70); Platelet Count 305 K/mm3 (150-450); RBC Distribution Width CV 12.3 % (11.6-14.6); Red Blood Count 4.85 M/mm3 (4.2-5.4); White Blood Count 9.9 K/mm3 (4.4-11.0)
[2020-08-13 14:36] LABS: Anion Gap 5 (5-15); BUN 12 mg/dL (7-18); BUN/Creat Ratio 16.3 RATIO (10-20); Calcium,Total 9.2 mg/dL (8.5-10.1); Chloride 107 mmol/L (98-107); Creatinine, Serum 0.74 mg/dL (0.55-1.02); EST Glomerular Filtration Rate 94 mL/min (>60); Est Glom Filt Rate - Afr Amer 113 mL/min (>60); Estimated Creatinine Clearance 101.22 ml/min; Glucose 93 mg/dL (74-106); Potassium 3.7 mmol/L (3.5-5.1); Sodium Level 137 mmol/L (136-145)
[2020-08-13 15:01] LABS: Internal QC Validated? YES +Cl - CLEAR BKGD
[2020-08-13 15:06] LABS: Pregnancy, Serum, hCG Quali. NEGATIVE Negative
[2020-08-13 15:28] LABS: Bacteria 0 SEEN /hpf (None Seen); Mucous, Urine 0 SEEN /hpf (<or=2+); Red Blood Cells-Urine 0 SEEN /hpf (0-5); Squamous Epithelial Cells - UA 0 SEEN /hpf (5-10); White Blood Cells 0 SEEN /hpf (0-5)
--- NOTE | 2020-08-13 16:03 | CT_ITS ---
STUDY: CT ABDOMEN AND PELVIS WITH CONTRAST REASON FOR EXAM: Female, 39 years old. RLQ pain -- IV PO Contrast RADIATION DOSAGE (If Supplied By Facility): CTDIvol = ( 17.32 ) mGy, DLP = ( 1389.21 ) mGycm TECHNIQUE: Transaxial images were obtained from the dome of the diaphragm to the symphysis pubis with oral contrast. Oral and amp; IV Gastrografin and amp; 100mL Isovue-300 was administered. Sagittal and coronal images were reconstructed. Individualized dose optimization techniques were used for this CT. COMPARISON: None. FINDINGS: The visualized lung bases are unremarkable. The visualized portions of the heart are within normal limits. Normal liver. Normal gallbladder and extrahepatic biliary system. Normal spleen. Normal pancreas. Normal bilateral adrenal glands. Normal right kidney. Normal left kidney. Normal visualized stomach. Normal small intestine. Normal colon. The appendix is visualized and appears normal. Appendix is seen on coronal recon images 65 through 68 Normal abdominal aorta. Normal inferior vena cava. Normal retroperitoneum. Normal urinary bladder. Normal-appearing uterus, physiologic ovarian cysts noted, no demonstrated free fluid Normal abdominal wall. Normal osseous structures. CT/Abdomen/Pelvis WITH Contrast IMPRESSION: No suspicious solid organ abnormality No free intraperitoneal fluid, air, or suspicious adenopathy Normal appendix visualized Electronically Signed: Benito Cisneros MD at 18:39 EDT , Service support ,
[2020-08-13 16:07] VITALS: BP 137/95; PULSE 72; RESP 15; O2SAT 100
[2020-08-13] MEDS: Morphine 4 MG/ML Syringe IV (16:14)
[2020-08-13] MEDS: 0.9% Normal Saline 1,000 ML 999 ML IV (16:14)
[2020-08-13] MEDS: Ondansetron 4 MG/2 ML Vial IV (16:14)
--- NOTE | 2020-08-13 17:01 | ED.VISSUMM ---
- ER Visit Summary Date of Service: 08/13/20 Chief Complaint: Abdominal pain History of Present Illness: The patient is a 39 F presenting with abdominal pain. Patient states this started yesterday. She has pain in her right lower quadrant. She had one episode of vomiting today. She states she has had a small streak of blood in the emesis. She has had this in the past. She has had no vomiting since. She denies diarrhea but states she has loose stool. Denies blood in her stool. Denies fever. Denies other complaints. Physical Examination: Vitals are stable. Patient is afebrile. Alert no acute distress. HEENT exam is unremarkable. Neck is supple. Lungs are clear and equal bilaterally. Heart is regular rate and rhythm. Abdomen is soft right lower quadrant tenderness with no guarding or rebound Extremities are unremarkable. Skin is warm and dry. No focal neurologic deficit. Remainder of exam is unremarkable. Emergency Department Course and Treatment: Patient was given IV fluids, morphine, Zofran. CBC, chemistries unremarkable. hCG negative. Urinalysis unremarkable. CT abdomen pelvis was obtained and shows no suspicious solid organ abnormality. No free intraperitoneal fluid, air, or suspicious adenopathy. Normal appendix visualized. On reevaluation, patient is resting comfortably. She is given prescription for Bentyl and Zofran. Advised to follow up with primary care physician. Advised return to the ED for worsening complaints. Disposition: Discharge home Impression: Abdominal pain This note was generated with [employer] dictation software. It may contain incorrect words, spelling, and punctuation that were not noted in review of the chart prior to signing ED Disposition - Plan for ED Patient: Instructions: ED Abdominal Pain Unkn Cause Fem Prescriptions: Dicyclomine HCl [Bentyl] 20 mg PO TIDAC #20 capsule Prescription Printed Ondansetron [Zofran Odt] 4 mg PO Q8H PRN PRN #10 tablet PRN Reason: Nausea Prescription Printed Referrals: Gagandeep Pendleton MD [Primary Care Provider] -
[2020-08-13 18:00] VITALS: BP 139/78; PULSE 89; RESP 15; O2SAT 98
[2020-08-13 18:52] LABS: Color, Urine Yellow (Yellow); Glucose, Dipstick Normal (Normal); Ketone-Dipstick Negative (Negative); Leukocyte Esterase-Dipstick Negative /ul (Negative); Nitrite-Dipstick Negative (Negative); Occult Blood-Urine Negative /ul (Negative); Protein-Dipstick Negative (Negative); Urine Bilirubin Dipstick Negative (Negative); Urine Clarity Clear (Clear); Urine Urobilinogen Normal (Normal)
--- NOTE | 2020-08-13 18:54 | ED.DEP ---
ED Disposition - Plan for ED Patient: Instructions: ED Abdominal Pain Unkn Cause Fem Prescriptions: Dicyclomine HCl [Bentyl] 20 mg PO TIDAC #20 capsule Prescription Printed Ondansetron [Zofran Odt] 4 mg PO Q8H PRN PRN #10 tablet PRN Reason: Nausea Prescription Printed Referrals: Gagandeep Pendleton MD [Primary Care Provider] -
[2020-08-13 19:30] VITALS: PULSE 87
== END 2020-08-13 19:30 | disposition home or self-care (01) ==
LOC: ED 16:07
PROVIDERS: Emergency Provider Emergency Medicine; PCP Family Medicine
DX: R10.9 Unspecified abdominal pain (principal); R11.2 Nausea with vomiting, unspecified
CPT/HCPCS: 74177; 80048; 81001; 84703; 85025; 87426; 96361; 96374; 96375; 99283; J7030; Q9967; J2405

== ENCOUNTER 2020-10-23 16:33 | Emergency (ER) | payer BC, SELFPAY ==
[2020-10-23 16:33] VITALS: BP 148/82; PULSE 92; RESP 18; TEMP 37; BMI 37.1
--- NOTE | 2020-10-23 17:07 | EX.ED.VIS.HA ---
HPI History of Present Illness Chief Complaint: Headache Informant: patient Onset/Context/Timing Onset: Today Context: Activity (awoke this AM w/ headache) Timing: Continuous Quality -Headache: Positive for Similar Prior Headaches and Throbbing Location: right retroorbital, radiating back Current Severity: Severe Maximum Severity: Severe Worsened by: light Relieved by: nothing - could not keep down medications due to vomiting Associated Symptoms/Injury Associated Symptoms: Positive for Nausea, Vomiting, Blurred Vision and Photophobia; Negative for Fever, Sore Throat, Sinus Pressure, Numbness, Tingling and Visual Loss Injury - ERNST: Negative for Direct Trauma, Fall and Assault Narrative Narrative: Patient with a history of migraines longstanding, feels like she has another one but she has been vomiting off and on all morning and not able to keep down her Imitrex or Excedrin Migraine. [facility] Medical History (Updated 10/23/20 @ 18:[address] Leonardo Gustafson MD) Anemia Arthritis Asthma history of child Incontinence Seizures Severe headache Home Medications sumatriptan succinate mg PO 10/23/20 [History Last Taken Unknown] Allergy/AdvReac Type Severity Reaction Status Date / Time amoxicillin Allergy Hives Verified 08/13/20 14:10 calamine Allergy Rash Verified 08/13/20 14:10 coconut oil Allergy Rash Verified 08/13/20 14:10 erythromycin base Allergy Hives Verified 08/13/20 14:10 [Erythromycin Base] fentanyl Allergy Other Verified 08/13/20 14:10 ferrous sulfate Allergy Anaphylaxis Verified 08/13/20 14:10 latex Allergy Rash Verified 08/13/20 14:10 onion Allergy swollen Verified 08/13/20 14:10 tongue Penicillins Allergy Hives Verified 08/13/20 14:10 tobramycin Allergy Other Verified 08/13/20 14:10 atomoxetine [From Strattera] AdvReac Other Verified 08/13/20 14:10 diphenhydramine HCl AdvReac Chest Verified 08/13/20 14:10 [From Benadryl] tightness [place] 40 FOOD DYE Allergy Anaphylaxis Uncoded 08/13/20 14:10 Social History Smoking Status: Current every day smoker tobacco type: cigarettes alcohol intake: never ROS ROS ED Constitutional Constitutional ED: Denies chills or fever(s) Eyes Eyes: Reports blurry vision; Denies diplopia ENT ENT ED: Denies ear pain or sore throat Cardiovascular Cardiovascular: Denies chest pain or palpitations Respiratory/Chest Respiratory/Chest: Denies cough or dyspnea Gastrointestinal Gastrointestinal: Reports nausea and vomiting; Denies abdominal pain or diarrhea Genitourinary Genitourinary ED: Denies dysuria or urinary frequency Musculoskeletal Musculoskeletal: Denies back pain or myalgias Integumentary Denies abscess or rash Neurologic Neurologic: Reports headache(s); Denies paresthesias or weakness EXAM Physical Exam Const Vital Signs: 10/23/20 16:33 Temperature 98.6 F Temperature Source Temporal Pulse Rate 92 Respiratory Rate 18 Blood Pressure 148/82 H Blood Pressure Mean 104 HEENT Reports normocephalic and moist mucous membranes atraumatic Eyes PERRL, EOMs intact bilaterally and conjunctivae normal Eyes Narrative: photophobia Neck no lymphadenopathy, supple and no meningeal signs Resp normal respiratory effort and clear to auscultation bilaterally GI non-tender and non-distended Palpation: soft Extremity normal to inspection and full ROM Neuro oriented x3 and CN's II-XII intact bilaterally Sensorium / Orientation: awake and alert Speech: speech normal Gait (Neuro): normal gait Motor Exam: strength 5/5 throughout Psych mental status grossly normal Skin Lesions: no lesions Rashes: no rashes MDM MDM MDM Narrative Medical decision making narrative: Patient was given a dose of subcutaneous Imitrex, it did help but she still had a headache. She was offered Toradol but declined and feels better enough to go home. Advised to follow-up as needed. She states she has headaches daily. Discharge Plan Triage Chief Complaint: Headache ED Provider: Leonardo Gustafson Dx/Rx/DC Orders Clinical Impression: Headache, migraine Instructions: ED, Migraine (Classical) Prescriptions: No Action sumatriptan succinate 100 mg tablet PO RF: 0 Primary Care Provider: Gagandeep Pendleton Referrals: Gagandeep Pendleton MD [Primary Care Provider] - As Needed Disposition Disposition: Home, Self Care
[2020-10-23] MEDS: Ondansetron ODT 4 MG Tablet 8 MG PO (17:11)
[2020-10-23] MEDS: SUMAtriptan 6 MG/0.5 ML Vial SC (17:11)
== END 2020-10-23 18:33 | disposition home or self-care (01) ==
PROVIDERS: Emergency Provider Emergency Medicine; PCP Family Medicine
DX: G43.909 Migraine, unspecified, not intractable, without status migrainosus (principal); F17.210 Nicotine dependence, cigarettes, uncomplicated
CPT/HCPCS: 99282; J3030

== ENCOUNTER 2020-11-28 04:21 | Emergency (ER) | payer BC, SELFPAY ==
[2020-11-28 04:23] VITALS: BP 133/91; PULSE 84; RESP 16; TEMP 36.2; O2SAT 100; BMI 39.1
--- NOTE | 2020-11-28 04:54 | CT_ITS ---
STUDY: CT ABDOMEN AND PELVIS WITH CONTRAST REASON FOR EXAM: Female, 40 years old patient with signs and symptoms of cholecystitis. RADIATION DOSAGE (If Supplied By Facility): CTDIvol = ( 20.50 ) mGy, DLP = ( 1461.19 ) mGycm TECHNIQUE: Transaxial images were obtained from the dome of the diaphragm to the symphysis pubis without oral contrast. 100 mL of IV Isovue-300 was administered. Sagittal and coronal images were reconstructed. Individualized dose optimization techniques were used for this CT. COMPARISON: None. FINDINGS: There is bilateral lower lobe groundglass attenuation. The visualized portions of the heart are within normal limits. Normal liver. Normal gallbladder and extrahepatic biliary system. Normal spleen. Normal pancreas. Normal bilateral adrenal glands. Normal right kidney. Normal left kidney. Normal visualized stomach. There is no evidence for dilated bowel, ascites or pneumoperitoneum. Small bowel has a grossly normal appearance. Stool is visible throughout the colon. There is abnormal thickening of the wallace of the ascending colon with fatty infiltration which may be the result of previous chronic inflammation. The appendix is visualized and appears normal. Normal abdominal aorta. Normal inferior vena cava. Normal retroperitoneum. Normal urinary bladder. Normal visualized uterus. There is a small umbilical hernia containing fat. Normal osseous structures. CT/Abdomen/Pelvis W IV Cont ONLY IMPRESSION: 1. Findings suggest sequela of chronic or previous colitis of the ascending colon. 2. Bilateral basilar airspace consolidation and atelectasis suggests possible pneumonia. Electronically Signed: Angi Benjamin MD at 7:00 EDT , Service support ,
--- NOTE | 2020-11-28 04:57 | EX.ED.DYSGE1 ---
HPI History of Present Illness Chief Complaint: Abd Pain Informant: patient Narrative Narrative: Patient is a 40-year-old female who presents to the emergency department for epigastric abdominal pain. She currently rates the pain as mild. Lying down seems to make her symptoms worse. It has been intermittent over the past 2 or 3 days. She denies ever having his have before. She does have a history of GERD but this is not the same. She states that she does have a history of tubal ligation. No other abdominal surgeries. She has been nauseous and vomiting. She states that she has not been eating very much. She is not sure if food makes this worse. She denies any change in bowel movements. No urinary symptoms. No fevers or chills. She denies any chest pain or shortness of breath. She has been taking Tylenol for her symptoms which has not been giving any relief. [facility] Medical History (Updated 11/28/20 @ 06:[address] Brice Alvarez, DO) Anemia Arthritis Asthma history of child Incontinence Seizures Severe headache Home Medications sumatriptan succinate 100 mg PO PRN PRN 10/23/20 [History Last Taken Unknown] pantoprazole [Protonix] 40 mg PO DAILY #30 tab 11/28/20 [Rx Last Taken Unknown] Allergy/AdvReac Type Severity Reaction Status Date / Time amoxicillin Allergy Hives Verified 11/28/20 04:22 calamine Allergy Rash Verified 11/28/20 04:22 coconut oil Allergy Rash Verified 11/28/20 04:22 erythromycin base Allergy Hives Verified 11/28/20 04:22 [Erythromycin Base] fentanyl Allergy Other Verified 11/28/20 04:22 ferrous sulfate Allergy Anaphylaxis Verified 11/28/20 04:22 latex Allergy Rash Verified 11/28/20 04:22 onion Allergy swollen Verified 11/28/20 04:22 tongue Penicillins Allergy Hives Verified 11/28/20 04:22 tobramycin Allergy Other Verified 11/28/20 04:22 atomoxetine [From Strattera] AdvReac Other Verified 11/28/20 04:22 diphenhydramine HCl AdvReac Chest Verified 11/28/20 04:22 [From Benadryl] tightness [place] 40 FOOD DYE Allergy Anaphylaxis Uncoded 11/28/20 04:22 Social History Smoking Status: Current every day smoker tobacco type: cigarettes alcohol intake: never ROS ROS ED Constitutional Constitutional ED: Denies chills or fever(s) Eyes Eyes: Denies change in vision ENT ENT ED: Denies epistaxis or rhinorrhea Cardiovascular Cardiovascular: Denies chest pain Respiratory/Chest Respiratory/Chest: Denies cough, dyspnea or dyspnea on exertion Gastrointestinal Gastrointestinal: Reports abdominal pain, nausea and vomiting; Denies constipation, diarrhea or melena Genitourinary Genitourinary ED: Denies dysuria, hematuria or urinary frequency Musculoskeletal Musculoskeletal: Denies back pain or neck pain Integumentary Denies rash Neurologic Neurologic: Denies dizziness, headache(s) or weakness EXAM Physical Exam Const Vital Signs: 11/28/20 04:23 Temperature 97.1 F L Temperature Source Temporal Pulse Rate 84 Respiratory Rate 16 Blood Pressure 133/91 H Blood Pressure Mean 105 Pulse Ox 100 Oxygen Delivery Method Room Air Positive well nourished and well developed General Appearance ED: well developed and NAD HEENT Reports normocephalic and head/scalp atraumatic Eyes PERRL and EOMs intact bilaterally Neck supple Resp normal respiratory effort and clear to auscultation bilaterally Auscultation: Negative for rales, rhonchi or wheezes Cardio regular rate, regular rhythm and no murmurs GI normal to inspection, nondistended, normoactive bowel sounds GI Narrative: No rebound or guarding. Positive Kamara sign. Tenderness to the epigastric region as well. No right lower quadrant pain. Palpation: soft Back/Spine no CVA tenderness Extremity normal to inspection General Extremety ED: Negative for edema or tenderness General Extremity: Negative for edema Neuro no sensory deficits noted Sensorium / Orientation: alert Motor Exam: strength 5/5 throughout Psych mental status grossly normal Skin no rashes or lesions noted MDM MDM MDM Narrative Medical decision making narrative: Patient presents to the emergency department for abdominal pain. Upon arrival to the emergency department vital signs within normal limits. She does have a positive Kamara sign as well as epigastric tenderness. Will check basic lab work and obtain CT imaging of the abdomen/pelvis. She is given a dose of hydromorphone for symptomatic treatment. Patient's lab did not reveal a significant acute abnormality. CT scan of the abdomen/pelvis showed a nonspecific ascending colitis. Urine does not show any signs of infection. On reexamination she is resting comfortably and feeling much better. We will write a prescription for Protonix for symptomatic treatment at home. She is to follow-up with her PCP. Return precautions are reviewed. She understands and is agreeable to plan. All questions were answered. Lab Data Labs: Laboratory Results - last 24 hr 11/28/20 11/28/20 11/28/20 04:32 04:32 04:36 WBC 9.2 RBC 4.43 Hgb 13.8 Hct 41.2 MCV 93.0 MCH 31.2 MCHC 33.5 RDW Std Deviation 43.6 RDW Coeff of [place] 12.6 Plt Count 285 MPV 10.6 Immature Gran % (Auto) 0.200 Neut % (Auto) 58.0 Lymph % (Auto) 26.0 [place] % (Auto) 11.1 H Eos % (Auto) 4.0 Baso % (Auto) 0.7 Absolute Neuts (auto) 5.4 Absolute Lymphs (auto) 2.40 Nucleated RBC % 0 Sodium 138 Potassium 3.6 Chloride 108 H Carbon Dioxide 25.0 Anion Gap 5 BUN 10 Creatinine 0.68 Estim Creat Clear Calc 109.08 Est GFR (MDRD) Af Amer 124 Est GFR (MDRD) Non-Af 103 BUN/Creatinine Ratio 14.7 Glucose 89 Calcium 8.1 L Total Bilirubin 0.30 AST 18 ALT 31 Alkaline Phosphatase 78 Total Protein 7.1 Albumin 3.3 Globulin 3.8 Albumin/Globulin Ratio 0.9 Lipase 88 Urine Color Yellow Urine Clarity Clear Urine pH 7.0 Ur Specific [place] 1.010 Urine Protein Negative Urine Glucose (UA) Normal Urine Ketones Negative Urine Occult Blood Negative Urine Nitrite Negative Urine Bilirubin Negative Urine Urobilinogen Normal Ur Leukocyte Esterase Negative Urine RBC 0 SEEN Urine WBC 0 SEEN Ur Squamous Epith Cells 0-5 SEEN Urine Bacteria RARE Urine Mucus 0 SEEN Urine Test Negative Radiography Diagnostic Testing: Radiology Impression Abdomen/Pelvis CT 11/28/20 04:54 IMPRESSION: 1. Findings suggest sequela of chronic or previous colitis of the ascending colon. 2. Bilateral basilar airspace consolidation and atelectasis suggests possible pneumonia. Electronically Signed: Angi Benjamin MD at 7:00 EDT , Service support , Discharge Plan Triage Chief Complaint: Abd Pain ED Provider: Brice Alvarez Dx/Rx/DC Orders Clinical Impression: Abdominal pain Instructions: Abdominal Pain Prescriptions: New pantoprazole [Protonix] 40 mg tablet,delayed release (DR/EC) 40 mg PO DAILY Qty: 30 RF: 0 No Action sumatriptan succinate 100 mg tablet 100 mg PO PRN PRN (Reason: Migraine Headache) RF: 0 Primary Care Provider: Gagandeep Pendleton Referrals: Gagandeep Pendleton MD [Primary Care Provider] - 2 Days Disposition Disposition: Home, Self Care
[2020-11-28 04:58] LABS: Absolute Neutrophil Count 5.4 X10^3/uL (2.0-7.7); Basophil# 0.06 X10^3/uL; Basophil% 0.7 % (0-1); Eosinophil# 0.37 X10^3/uL; Hematocrit 41.2 % (37-47); Hemoglobin 13.8 g/dL (12.0-15.0); Mean Corp Hgb Conc 33.5 g/dL (32-36); Mean Corpuscular Hgb 31.2 pg (27.0-32.0); Mean Platelet Vol. 10.6 fl (6.2-12.0); Monocyte# 1.02 X10^3/uL; Monocyte% 11.1 % (0-10); NRBC Flagged by Analyzer 0 % (0-5); Neutrophil # 5.36 X10^3/uL (2.7-7.7); Platelet Count 285 K/mm3 (150-450); RBC Distribution Width CV 12.6 % (11.6-14.6); RBC Distribution Width SD 43.6 fl (35.1-43.9); Red Blood Count 4.43 M/mm3 (4.2-5.4); White Blood Count 9.2 K/mm3 (4.4-11.0)
[2020-11-28 05:07] LABS: Mucous, Urine 0 SEEN /hpf (<or=2+); Red Blood Cells-Urine 0 SEEN /hpf (0-5); White Blood Cells 0 SEEN /hpf (0-5)
[2020-11-28 05:09] LABS: Color, Urine Yellow (Yellow); Glucose, Dipstick Normal (Normal); Ketone-Dipstick Negative (Negative); Leukocyte Esterase-Dipstick Negative /ul (Negative); Nitrite-Dipstick Negative (Negative); Occult Blood-Urine Negative /ul (Negative); Protein-Dipstick Negative (Negative); Urine Bilirubin Dipstick Negative (Negative); Urine Clarity Clear (Clear); Urine Urobilinogen Normal (Normal)
[2020-11-28] MEDS: HYDROmorphone 1 MG/ML Syringe 0.5 MG IV (05:09)
[2020-11-28 05:13] LABS: ALB/GLOB Ratio 0.9 RATIO (0.9-2.4); AST(SGOT) 18 U/L (15-37); Alanine Aminotransfer ALT/SGPT 31 U/L (13-56); Albumin, Serum 3.3 g/dL (3.2-5.0); Alkaline Phosphatase 78 U/L (45-117); Anion Gap 5 (5-15); BUN 10 mg/dL (7-18); BUN/Creat Ratio 14.7 RATIO (10-20); Calcium,Total 8.1 mg/dL (8.5-10.1); Chloride 108 mmol/L (98-107); Creatinine, Serum 0.68 mg/dL (0.55-1.02); EST Glomerular Filtration Rate 103 mL/min (>60); Est Glom Filt Rate - Afr Amer 124 mL/min (>60); Estimated Creatinine Clearance 109.08 ml/min; Globulin 3.8 g/dL (2.2-4.2); Glucose 89 mg/dL (74-106); Lipase 88 U/L (73-393); Potassium 3.6 mmol/L (3.5-5.1); Protein, Total 7.1 g/dL (6.4-8.2); Sodium Level 138 mmol/L (136-145)
[2020-11-28 05:22] LABS: Internal QC Validated? YES +Cl - CLEAR BKGD; Pregnancy, Urine Negative Negative
[2020-11-28 05:24] LABS: Bacteria RARE /hpf (None Seen); Squamous Epithelial Cells - UA 0-5 SEEN /hpf (5-10)
[2020-11-28 07:16] VITALS: BP 134/77; PULSE 68; RESP 15; O2SAT 98
== END 2020-11-28 07:17 | disposition home or self-care (01) ==
PROVIDERS: Emergency Provider Emergency Medicine; PCP Family Medicine
DX: R10.13 Epigastric pain (principal); R11.2 Nausea with vomiting, unspecified; K52.9 Noninfective gastroenteritis and colitis, unspecified; K21.9 Gastro-esophageal reflux disease without esophagitis; M19.90 Unspecified osteoarthritis, unspecified site; J45.909 Unspecified asthma, uncomplicated; Z86.2 Personal history of diseases of the blood and blood-forming organs and certain disorders involving the immune mechanism; F17.210 Nicotine dependence, cigarettes, uncomplicated
CPT/HCPCS: 74177; 80053; 81001; 81025; 83690; 85025; 96374; 99283; Q9967; A4216

== ENCOUNTER 2020-12-30 01:38 | Emergency (ER) | payer BC, SELFPAY ==
[2020-12-30 01:39] VITALS: O2SAT 100
[2020-12-30 01:41] VITALS: PULSE 104; RESP 24; TEMP 36.1; O2SAT 100; BMI 34.1
--- NOTE | 2020-12-30 01:54 | EDS_ITS ---
HPI History of Present Illness Chief Complaint: Asthma Informant: patient Narrative Narrative: Patient is a 40-year-old female with history of anxiety, ADHD, asthma and migraine headaches presenting with shortness of breath. Patient was cleaning her bathroom with bleach and it was not well ventilated. She spilled some bleach and when she was trying to clean it up she suddenly felt very short of breath. She states she has a significant tightness in her chest. The discomfort made her feel more anxious and feels short of breath. Friend called EMS for her and they gave her breathing treatment in route. Patient had a breathing treatment at home prior to arrival. Patient was feeling fine before this. No other complaints at this time. Has had a Covid vaccine. [facility] Medical History (Updated 12/30/20 @ 03:[address] Janiya Rome DO) Anemia Arthritis Asthma history of child Incontinence Seizures Severe headache Home Medications sumatriptan succinate 100 mg PO PRN PRN 10/23/20 [History Last Taken Unknown] pantoprazole [Protonix] 40 mg PO DAILY #30 tab 11/28/20 [Rx Last Taken Unknown] prednisone 40 mg PO DAILY #10 tab 12/30/20 [Rx Last Taken Unknown] Allergy/AdvReac Type Severity Reaction Status Date / Time amoxicillin Allergy Hives Verified 12/30/20 01:39 calamine Allergy Rash Verified 12/30/20 01:39 coconut oil Allergy Rash Verified 12/30/20 01:39 erythromycin base Allergy Hives Verified 12/30/20 01:39 [Erythromycin Base] fentanyl Allergy Other Verified 12/30/20 01:39 ferrous sulfate Allergy Anaphylaxis Verified 12/30/20 01:39 latex Allergy Rash Verified 12/30/20 01:39 onion Allergy swollen Verified 12/30/20 01:39 tongue Penicillins Allergy Hives Verified 12/30/20 01:39 tobramycin Allergy Other Verified 12/30/20 01:39 atomoxetine [From Strattera] AdvReac Other Verified 12/30/20 01:39 diphenhydramine HCl AdvReac Chest Verified 12/30/20 01:39 [From Benadryl] tightness [place] [employer] [place] 40 FOOD DYE Allergy Anaphylaxis Uncoded 12/30/20 01:39 Social History Smoking Status: Current every day smoker tobacco type: cigarettes alcohol intake: never ROS ROS ED Constitutional Constitutional ED: Denies chills or fever(s) Eyes Eyes: Denies change in vision Cardiovascular Cardiovascular: Reports chest pain; Denies palpitations Respiratory/Chest Respiratory/Chest: Reports dyspnea; Denies cough or sputum Gastrointestinal Gastrointestinal: Denies abdominal pain, nausea or vomiting Musculoskeletal Musculoskeletal: Denies arthralgias or myalgias Integumentary Denies rash Neurologic Neurologic: Denies headache(s) Psychiatric Psychiatric: Reports anxiety; Denies depression EXAM Physical Exam Const Vital Signs: 12/30/20 01:39 12/30/20 01:41 12/30/20 02:02 Temperature 97 F L Temperature Source Temporal Pulse Rate 104 H 110 H Respiratory Rate 24 H 26 H Respiratory Effort Normal Non-Labored Respiratory Depth Deep Respiratory Pattern Tachypnea Tachypnea Pulse Ox 100 Oxygen Delivery Method Room Air Room Air Positive well nourished and well developed General Appearance ED: well developed HEENT Reports moist mucous membranes atraumatic Eyes PERRL and EOMs intact bilaterally Neck supple and no JVD Resp Resp Narrative: Patient is tachypneic but does not have any wheezing and is moving lung through all lung [place]. Cardio regular rhythm and no murmurs Cardio Narrative: 2+ radial and DP pulses Rate: tachycardic GI non-tender and non-distended Palpation: soft Extremity normal to inspection General Extremety ED: Negative for edema General Extremity: Negative for edema Neuro oriented x3 Sensorium / Orientation: alert Motor Exam: Negative for general weakness Psych Mood & Affect: anxious Thought Process: normal thought process Skin Lesions: no lesions Rashes: no rashes MDM MDM MDM Narrative Medical decision making narrative: Patient evaluated for sudden onset of shortness of breath and chest tightness after inhaling bleach. On arrival she is not wheezing and is moving air well but appears to be having a panic attack. Patient is given oral Ativan. I did give her a DuoNeb and get a chest x-ray to look for signs of pneumonitis. Chest x-rays not show any acute process. On reevaluation patient is significantly improved and resting. She will be discharged with a prescription for prednisone in case she does have a component of chemical pneumonitis/asthma exacerbation. She states she does not need a refill of her albuterol. Is counseled on return precautions. Patient and friends are agreeable with this plan of care. Patient discharged home in improved and stable condition. Radiography Chest X-Ray - ED: 2 View, Read by ED Physician, Read by Radiologist and No Acute Disease Diagnostic Testing: Radiology Impression Chest X-Ray 12/30/20 02:55 IMPRESSION: No radiographic evidence of acute cardiopulmonary disease. at 0319 Reported and signed by: Wang Stone MD Electronically Signed: Wang Stone MD at 3:18 EDT Tel , Service support , Discharge Plan Triage Chief Complaint: Asthma ED Provider: Janiya Rome Dx/Rx/DC Orders Clinical Impression: Asthma exacerbation attacks, Accidental exposure to bleach, Anxiety attack Instructions: ED Asthma, Acute (Adult), ED Panic Attack Prescriptions: New prednisone 20 mg tablet 40 mg PO DAILY Qty: 10 RF: 0 No Action sumatriptan succinate 100 mg tablet 100 mg PO PRN PRN (Reason: Migraine Headache) RF: 0 pantoprazole [Protonix] 40 mg tablet,delayed release (DR/EC) 40 mg PO DAILY Qty: 30 RF: 0 Primary Care Provider: Gagandeep Pendleton Referrals: Gagandeep Pendleton MD [Primary Care Provider] - Activity Restrictions/Additional Instructions: If you do not have any further shortness of breath or chest tightness you do not need take the steroids. If you continue to have symptoms in the morning please take the entire course of steroids. Return the emergency room with any worsen ing symptoms. Follow-up with your primary care doctor as needed. Disposition Disposition: Home, Self Care
[2020-12-30] MEDS: Ipratropium/Albuterol Sulfate 3 ML AMPUL.NEB INHALATION (02:01)
[2020-12-30 02:02] VITALS: PULSE 110; RESP 26
[2020-12-30] MEDS: LORazepam 1 MG Tablet PO (02:14)
--- NOTE | 2020-12-30 02:55 | RAD_ITS ---
HISTORY: Shortness of breath EXAMINATION/TECHNIQUE: XR Chest 2 Views COMPARISON: Frontal view chest from 05/25/19 FINDINGS: LINES/DEVICES: monitoring specialist leads. LUNGS: No focal airspace consolidation. No pulmonary edema. No pleural effusion. No pneumothorax. MEDIASTINUM AND CARDIOVASCULAR STRUCTURES: Cardiac silhouette not enlarged. Central airways and mediastinal contour are unremarkable. BONES AND SOFT TISSUES: No acute findings. RAD/Chest PA and Lateral IMPRESSION: No radiographic evidence of acute cardiopulmonary disease. at 0319 Reported and signed by: Wang Stone MD Electronically Signed: Wang Stone MD at 3:18 EDT Tel , Service support ,
[2020-12-30 03:49] VITALS: BP 127/71; PULSE 65; RESP 15; O2SAT 97
== END 2020-12-30 03:52 | disposition home or self-care (01) ==
PROVIDERS: Emergency Provider Emergency Medicine; PCP Family Medicine
DX: J45.901 Unspecified asthma with (acute) exacerbation (principal); F44.5 Conversion disorder with seizures or convulsions; T75.89XA Other specified effects of external causes, initial encounter; F17.210 Nicotine dependence, cigarettes, uncomplicated; D64.9 Anemia, unspecified; F90.9 Attention-deficit hyperactivity disorder, unspecified type; M19.90 Unspecified osteoarthritis, unspecified site; Z79.52 Long term (current) use of systemic steroids
CPT/HCPCS: 71046; 94640; 99285

== ENCOUNTER 2021-02-17 19:25 | Emergency (ER) | payer BC, SELFPAY ==
[2021-02-17 19:26] VITALS: BP 140/91; PULSE 125; RESP 16; TEMP 36; O2SAT 95; BMI 33.2
--- NOTE | 2021-02-17 19:47 | RAD_ITS ---
EXAM: XR LEFT FOOT COMPLETE, 3 OR MORE VIEWS : 1982 CLINICAL INDICATION: Injury/Pain TECHNIQUE: Frontal, lateral and oblique views of the left foot. This report was created using [employer] report generation technology. COMPARISON: None. FINDINGS: BONES/JOINTS: Unremarkable. No acute fracture. No subluxation. Normal alignment. Preservation of the joint space. No sclerotic or destructive changes observed. SOFT TISSUES: Unremarkable. No soft tissue swelling or gas. No radiopaque foreign body. RAD/Foot min 3 Views IMPRESSION: Negative left foot x-rays. at 2001 Reported and signed by: Tay Womack MD Electronically Signed: Tay Womack MD at 20:00 EDT Tel , Service support ,
--- NOTE | 2021-02-17 19:55 | EDS_ITS ---
HPI History of Present Illness HPI Narrative: Patient presents with injury to her left foot that occurred today. Patient states she tripped while she was going into work. Patient states that she twisted her left foot. Patient is unsure of the exact mechanism of injury. Patient states that she continued to work and was standing at work. Patient states it became worse with standing. Patient denies any paresthesias or weakness. Patient describes her pain as aching. Patient states nothing seems to help with the pain. Chief Complaint: Lower Extremity Injury Informant: patient Occured/Mechanism Mechanism/Context: Yes fall Onset/Context/Timing Onset: Today Context: Sudden Onset Timing: Continuous Quality of Pain: Aching Location: Left foot Worsened by: Standing Relieved by: Nothing Associated Symptoms Associated Symptoms: Negative for Parasthesia, Weakness and Loss of Funtion [facility] Medical History (Updated 02/17/21 @ 19:[address] Deo Ruiz DO) Anemia Arthritis Asthma history of child Incontinence Seizures Severe headache Home Medications sumatriptan succinate 100 mg PO PRN PRN 10/23/20 [History Last Taken Unknown] rizatriptan 10 mg PO PRN PRN 02/17/21 [History Last Taken Unknown] Allergy/AdvReac Type Severity Reaction Status Date / Time amoxicillin Allergy Hives Verified 02/17/21 19:28 calamine Allergy Rash Verified 02/17/21 19:28 coconut oil Allergy Rash Verified 02/17/21 19:28 erythromycin base Allergy Hives Verified 02/17/21 19:28 [Erythromycin Base] fentanyl Allergy Other Verified 02/17/21 19:28 ferrous sulfate Allergy Anaphylaxis Verified 02/17/21 19:28 latex Allergy Rash Verified 02/17/21 19:28 onion Allergy swollen Verified 02/17/21 19:28 tongue Penicillins Allergy Hives Verified 02/17/21 19:28 tobramycin Allergy Other Verified 02/17/21 19:28 atomoxetine [From Strattera] AdvReac Other Verified 02/17/21 19:28 diphenhydramine HCl AdvReac Chest Verified 02/17/21 19:28 [From Benadryl] tightness [place] 40 FOOD DYE Allergy Anaphylaxis Uncoded 02/17/21 19:28 Social History Smoking Status: Current every day smoker tobacco type: cigarettes alcohol intake: never ROS ROS ED Constitutional Constitutional ED: Denies chills or fever(s) Eyes Eyes: Denies blurry vision or change in vision ENT ENT ED: Denies rhinorrhea or sore throat Cardiovascular Cardiovascular: Denies chest pain or palpitations Respiratory/Chest Respiratory/Chest: Denies cough or dyspnea Gastrointestinal Gastrointestinal: Denies nausea or vomiting Genitourinary Genitourinary ED: Denies dysuria or hematuria Musculoskeletal Musculoskeletal: Denies back pain or neck pain Integumentary Denies abscess or rash Neurologic Neurologic: Denies headache(s) or weakness Allergic/Immunologic Allergic/Immunologic ED: Denies mouth swelling or urticaria EXAM Physical Exam Const Vital Signs: 02/17/21 19:26 Temperature 96.8 F L Temperature Source Temporal Pulse Rate 125 H Respiratory Rate 16 Blood Pressure 140/91 H Blood Pressure Mean 107 Pulse Ox 95 Positive well nourished and well developed General Appearance ED: well developed HEENT Reports moist mucous membranes Neck full ROM and supple Extremity Extremity Narrative: There is tenderness over the left fifth metatarsal. There is no edema or ecchymosis. There is no bony crepitance or step-off. There is no obvious deformity. Range of motion was limited in all motions of the left foot secondary to pain. Pedal pulses are equal bilateral. Sensation was intact to light touch in all digits. Capillary refill was less than 2 seconds in all digits. There is no tenderness over the lateral or medial malleolus. There is no tenderness over the proximal fibula. Neuro oriented x3, CN's II-XII intact bilaterally, moves all extremities and no sensory deficits noted Sensorium / Orientation: alert Motor Exam: strength 5/5 throughout Psych mental status grossly normal MDM MDM MDM Narrative Medical decision making narrative: X-rays of the left foot were obtained. There are 3 views. On my interpretation, there is no acute fracture. There is no dislocation. There is no soft tissue swelling. Radiologist also interpreted the x-rays and agrees. Patient was given a postop shoe. Patient was instructed to ice and elevate the left foot. Patient was instructed to take Tylenol or ibuprofen as needed for pain. Patient was instructed to follow-up with her primary care physician in 5 to 7 days. Patient understood and was agreeable with the plan. All questions were answered. Radiography Diagnostic Testing: Clinical Impression(s) from Imaging Studies Foot X-Ray 02/17/21 19:47 IMPRESSION: Negative left foot x-rays. at 2001 Reported and signed by: Tay Womack MD Electronically Signed: Tay Womack MD at 20:00 EDT Tel , Service support , Discharge Plan Triage Chief Complaint: Lower Extremity Injury ED Provider: Deo Ruiz Dx/Rx/DC Orders Clinical Impression: Sprain of left foot Instructions: ED Foot Sprain Prescriptions: No Action sumatriptan succinate 100 mg tablet 100 mg PO PRN PRN (Reason: Migraine Headache) RF: 0 rizatriptan 10 mg tablet,disintegrating 10 mg PO PRN PRN (Reason: MIGRAINES) RF: 0 Primary Care Provider: Gagandeep Pendleton Referrals: Gagandeep Pendleton MD [Primary Care Provider] - 5-7 Days Disposition Disposition: Home, Self Care
== END 2021-02-17 21:41 | disposition home or self-care (01) ==
PROVIDERS: Emergency Provider Emergency Medicine; PCP Family Medicine
DX: S93.602A Unspecified sprain of left foot, initial encounter (principal); X50.1XXA Overexertion from prolonged static or awkward postures, initial encounter; F17.210 Nicotine dependence, cigarettes, uncomplicated
CPT/HCPCS: 73630; 99283

== ENCOUNTER → 2021-04-24 15:20 | Outpatient (CLI) | payer SELFPAY | LOC: LABSPEC 15:34 | PROVIDERS: PCP Family Medicine; Referring Provider Family Medicine; Visit Provider Family Medicine | DX: Z20.828 Contact with and (suspected) exposure to other viral communicable diseases (principal) | CPT/HCPCS: 87635; U0005; U0003 ==

== ENCOUNTER 2021-05-09 13:09 | Emergency (ER) | payer SELFPAY ==
[2021-05-09 13:10] VITALS: BP 128/73; PULSE 78; RESP 16; TEMP 36.6; O2SAT 100; BMI 34.4
--- NOTE | 2021-05-09 13:54 | RAD_ITS ---
STUDY: X-RAY - RIGHT SHOULDER REASON FOR EXAM: Female, 40 years old. Pain following a recent fall. TECHNIQUE: 4 view(s) of the shoulder. COMPARISON: None. FINDINGS: Normal glenohumeral articulation. Normal acromioclavicular joint. Normal acromion. Normal humeral head and visualized proximal humerus. The soft tissue structures are unremarkable. Normal visualized pulmonary apex. RAD/Shoulder min 2 Views IMPRESSION: Normal x-ray examination of the shoulder. Electronically Signed: Jose Messina MD at 14:08 EST , Service support ,
--- NOTE | 2021-05-09 14:36 | EX.ED.UPPERE ---
HPI History of Present Illness Chief Complaint: Upper Extremity Injury Narrative Narrative: 40-year-old female with mechanical fall leading on her right shoulder. She states she has a history of unstable right shoulder distantly. She denies head injury or LOC. She states she has pain with ranging her right shoulder. She took ibuprofen prior to arrival and does not want any pain medication. She denies numbness or tingling. She states that when she moves her right shoulder it hurts in her distal clavicle region. She does not have any numbness or tingling. [facility] Medical History Anemia Arthritis Asthma history of child Incontinence Seizures Severe headache Home Medications aripiprazole [Abilify] 10 mg PO QHS 05/09/21 [History Last Taken Unknown] prazosin 1 mg PO QHS 05/09/21 [History Last Taken Unknown] Allergy/AdvReac Type Severity Reaction Status Date / Time amoxicillin Allergy Hives Verified 05/09/21 13:13 calamine Allergy Rash Verified 05/09/21 13:13 coconut oil Allergy Rash Verified 05/09/21 13:13 erythromycin base Allergy Hives Verified 05/09/21 13:13 [Erythromycin Base] fentanyl Allergy Other Verified 05/09/21 13:13 ferrous sulfate Allergy Anaphylaxis Verified 05/09/21 13:13 latex Allergy Rash Verified 05/09/21 13:13 onion Allergy swollen Verified 05/09/21 13:13 tongue Penicillins Allergy Hives Verified 05/09/21 13:13 tobramycin Allergy Other Verified 05/09/21 13:13 atomoxetine [From Strattera] AdvReac Other Verified 05/09/21 13:13 diphenhydramine HCl AdvReac Chest Verified 05/09/21 13:13 [From Benadryl] tightness [place] 40 FOOD DYE Allergy Anaphylaxis Uncoded 05/09/21 13:13 Social History Smoking Status: Current every day smoker tobacco type: cigarettes alcohol intake: never ROS ROS ED Constitutional Constitutional ED: Denies chills, fever(s) or sweats Eyes Eyes: Denies blurry vision or change in vision ENT ENT ED: Denies ear pain or sore throat Cardiovascular Cardiovascular: Denies chest pain, palpitations or racing heartbeat Respiratory/Chest Respiratory/Chest: Denies cough, dyspnea or sputum Gastrointestinal Gastrointestinal: Denies abdominal pain, constipation, diarrhea, nausea or vomiting Genitourinary Genitourinary ED: Denies dysuria, hematuria or urinary frequency Musculoskeletal Musculoskeletal: Denies arthralgias, myalgias or neck pain Integumentary Denies abscess, Abrasions or rash Neurologic Neurologic: Denies headache(s), paresthesias or weakness Psychiatric Psychiatric: Denies anxiety, depression, suicidal ideation or suicidal thoughts Endocrine Endocrinology: Denies polydipsia or polyuria EXAM Physical Exam Const Vital Signs: 05/09/21 13:10 Temperature 97.8 F Temperature Source Temporal Pulse Rate 78 Respiratory Rate 16 Blood Pressure 128/73 H Blood Pressure Mean 91 Pulse Ox 100 Oxygen Delivery Method Room Air Positive well nourished General Appearance ED: NAD HEENT normocephalic and atraumatic Neck supple General: Negative for tenderness Resp normal respiratory effort Effort and Inspection: able to speak in complete sentences and symmetric chest movement Extremity Extremity Narrative: Tenderness to palpation over the distal clavicle on the right shoulder. No obvious deformity. No crepitance. Shoulder girdle nontender on the right. Motor and sensation intact distally. Neuro oriented x3 Sensorium / Orientation: alert Psych mental status grossly normal Skin Rashes: no rashes Trauma: Negative for abrasion MDM MDM MDM Narrative Medical decision making narrative: Patient presenting with shoulder pain units in the distal clavicle on the right. I do not feel any deformity here. I will obtain a right shoulder x-ray which includes the clavicle and this does not show any fracture or subluxation on my interpretation. Patient declines analgesia in the ER stating that she only takes mild medicines because she has kids at home. Patient was given a sling for comfort which she can use 1 getting around at work but I did reimbursement counselor her to range her shoulder currently. She has a specialty shoulder device that can ice her shoulder. She will follow-up with her PCP to ensure resolution. Impression: 1. Right shoulder contusion Radiography Diagnostic Testing: Clinical Impression(s) from Imaging Studies Shoulder X-Ray 05/09/21 13:54 IMPRESSION: Normal x-ray examination of the shoulder. Electronically Signed: Jose Messina MD at 14:08 EST , Service support , Discharge Plan Triage Chief Complaint: Upper Extremity Injury ED Provider: Campbell Fitzpatrick Dx/Rx/DC Orders Instructions: ED Shoulder Contusion Prescriptions: No Action prazosin 1 mg Capsule 1 mg PO QHS RF: 0 aripiprazole [Abilify] 10 mg Tablet 10 mg PO QHS RF: 0 Primary Care Provider: Gagandeep Pendleton Referrals: Gagandeep Pendleton MD [Primary Care Provider] - Disposition Disposition: Home, Self Care
[2021-05-09 15:28] VITALS: PULSE 78; RESP 16; O2SAT 100
== END 2021-05-09 15:29 | disposition home or self-care (01) ==
LOC: ED 14:18
PROVIDERS: Emergency Provider Student in an Organized Health Care Education/Training Program; PCP Family Medicine; Visit Provider Student in an Organized Health Care Education/Training Program
DX: U07.1 COVID-19 (principal); R07.89 Other chest pain; M79.7 Fibromyalgia; Z79.82 Long term (current) use of aspirin
CPT/HCPCS: 73030; 99283

== ENCOUNTER 2021-06-19 12:20 | Outpatient (CLI) | payer SELFPAY ==
--- NOTE | 2021-06-19 12:26 | MRI_ITS ---
STUDY: MRI RIGHT SHOULDER REASON FOR EXAM: Right shoulder pain and limited range of motion for 1.5 months. TECHNIQUE: Standardized fat and water weighted pulse sequences were obtained in all 3 orthogonal planes. COMPARISON: Radiographs 05/09/2021. FINDINGS: There is mild supraspinatus tendinosis (T2 coronal images 11-13) without discrete tendon tear. Normal infraspinatus tendon. There is mild subscapularis tendinosis (proton-density axial image 12) without discrete tendon tear. Normal teres minor tendon. Normal supraspinatus muscle. Normal infraspinatus muscle. Normal subscapularis muscle. Normal teres minor muscle. Normal glenohumeral articulation. Normal humeral head and visualized proximal humerus. Normal biceps labral complex. Normal intracapsular long biceps tendon. Normal labrum. Normal capsulo- ligamentous complex. There is no substantial acromioclavicular arthrosis. There is a Type II morphology (curved), with a neutral orientation. There is no subacromial-subdeltoid bursal fluid. Normal visualized coracohumeral and coracoacromial ligaments. Normal deltoid muscle. Normal trapezius muscle. MRI/Upper Ext Joint Only(Routine) IMPRESSION: Mild supraspinatus and subscapularis tendinosis without demonstrated rotator cuff tear. Electronically Signed: Yusuf Colmenares MD at 13:22 EST ,
== END 2021-06-19 23:59 | disposition home or self-care (01) ==
PROVIDERS: PCP Family Medicine; Referring Provider Physician Assistant Surgical; Visit Provider Physician Assistant Surgical
DX: M25.511 Pain in right shoulder (principal)
CPT/HCPCS: 73221

== ENCOUNTER → 2021-09-11 | Outpatient (CLI) | payer BC, MEDICAID, SELFPAY ==
[2021-09-11 08:46] LABS: Absolute Lymphocyte Count 2.74 X10^3/uL (0.83-4.51); Absolute Neutrophil Count 5.5 X10^3/uL (2.0-7.7); Basophil# 0.06 X10^3/uL; Basophil% 0.6 % (0-1); Eosinophil# 0.25 X10^3/uL; Eosinophils% 2.7 % (0-5); Hematocrit 41.4 % (37-47); Hemoglobin 14.1 g/dL (12.0-15.0); Lymphocyte # 2.74 X10^3/ul (0.83-4.51); Lymphocyte % 29.6 % (19-41); Mean Corp Hgb Conc 34.1 g/dL (32-36); Mean Corpuscular Hgb 31.5 pg (27.0-32.0); Mean Corpuscular Volume 92.4 fL (81-99); Mean Platelet Vol. 11.2 fl (6.2-12.0); Monocyte# 0.69 X10^3/uL; Monocyte% 7.4 % (0-10); NRBC Flagged by Analyzer 0 % (0-5); Neutrophil % 59.4 % (47-70); Platelet Count 305 K/mm3 (150-450); RBC Distribution Width CV 12.3 % (11.6-14.6); Red Blood Count 4.48 M/mm3 (4.2-5.4); White Blood Count 9.3 K/mm3 (4.4-11.0)
[2021-09-11 09:13] LABS: Hemoglobin A1c 5.4 % (3.8-5.6)
[2021-09-11 09:14] LABS: Vitamin B12 472 pg/mL (211-911); Vitamin D,25 Hydroxy 21.2 ng/mL
[2021-09-11 09:23] LABS: ALB/GLOB Ratio 0.9 RATIO (0.9-2.4); AST(SGOT) 18 U/L (15-37); Alanine Aminotransfer ALT/SGPT 28 U/L (13-56); Albumin, Serum 3.5 g/dL (3.2-5.0); Alkaline Phosphatase 65 U/L (45-117); Anion Gap 5 (5-15); BUN 11 mg/dL (7-18); BUN/Creat Ratio 13.6 RATIO (10-20); Chloride 107 mmol/L (98-107); Cholesterol 168 mg/dL (200); Creatinine, Serum 0.81 mg/dL (0.55-1.02); EST Glomerular Filtration Rate 84 mL/min (>60); Est Glom Filt Rate - Afr Amer 102 mL/min (>60); Globulin 3.7 g/dL (2.2-4.2); Glucose 96 mg/dL (74-106); High Density Lipoprotein 34 mg/dL; Potassium 4.1 mmol/L (3.5-5.1); Protein, Total 7.2 g/dL (6.4-8.2); Sodium Level 140 mmol/L (136-145); Triglycerides 161 mg/dL; Very Low Density Lipoprotein 32 mg/dL (5-40)
== END | disposition home or self-care (01) ==
LOC: LAB 07:37
PROVIDERS: PCP Family Medicine; Visit Provider Nurse Practitioner Adult Health
DX: F31.81 Bipolar II disorder (principal); F41.1 Generalized anxiety disorder; F43.10 Post-traumatic stress disorder, unspecified; Z13.220 Encounter for screening for lipoid disorders
CPT/HCPCS: 36415; 80053; 80061; 82306; 82607; 83036; 84443; 85025

== ENCOUNTER → 2022-01-20 | Outpatient (CLI) | payer MEDICAID, SELFPAY ==
--- NOTE | 2022-01-20 09:47 | RAD_ITS ---
EXAM: XR LUMBOSACRAL SPINE, 2 OR 3 VIEWS CLINICAL INDICATION: Back pain. TECHNIQUE: Frontal and lateral views of the lumbar spine and sacrum. This report was created using [employer] report generation technology. COMPARISON: 10/30/2019. FINDINGS: VERTEBRAE: Mild levoscoliosis at the thoracolumbar junction. Normal vertebral body heights and endplates. Normal alignment. Preserved vertebral body height. No fracture. No spondylolisthesis. No significant facet arthropathy. DISC SPACES: Normal disc space heights. GASTROINTESTINAL TRACT: Unremarkable as visualized. Included bowel gas pattern is non-obstructive. RAD/Lumbar Spine 2 or 3 Views IMPRESSION: 1. No acute findings in the lumbar spine. 2. Mild levoscoliosis of the thoracolumbar junction is a new finding when compared to 10/30/2019. Electronically Signed: Jesus Hay MD at 10:45 EDT ,
== END | disposition home or self-care (01) ==
LOC: RAD 09:45
PROVIDERS: PCP Family Medicine; Referring Provider Anesthesiology Pain Medicine; Visit Provider Anesthesiology Pain Medicine
DX: M41.9 Scoliosis, unspecified (principal); M54.9 Dorsalgia, unspecified
CPT/HCPCS: 72100

== ENCOUNTER 2022-03-23 12:56 | Emergency (ER) | payer MEDICAID, SELFPAY ==
[2022-03-23 12:58] VITALS: BP 110/74; PULSE 92; RESP 18; TEMP 35.8; O2SAT 100; BMI 31.0
--- NOTE | 2022-03-23 13:18 | RAD_ITS ---
EXAM: XR RIGHT FOOT COMPLETE, 3 OR MORE VIEWS CLINICAL INDICATION: injury TECHNIQUE: Frontal, lateral and oblique views of the right foot. This report was created using [employer] report generation technology. COMPARISON: None. FINDINGS: BONES/JOINTS: Unremarkable. No acute fracture. No subluxation. Normal alignment. Preservation of the joint space. No sclerotic or destructive changes observed. SOFT TISSUES: Unremarkable. No soft tissue swelling or gas. No radiopaque foreign body. RAD/Foot min 3 Views IMPRESSION: Negative right foot x-rays. Electronically Signed: Jesus Hay MD at 13:54 EST ,
--- NOTE | 2022-03-23 13:18 | RAD_ITS ---
EXAM: XR RIGHT ANKLE COMPLETE, 3 OR MORE VIEWS CLINICAL INDICATION: injury TECHNIQUE: Frontal, lateral and oblique views of the right ankle. This report was created using [employer] report generation technology. COMPARISON: None. FINDINGS: BONES/JOINTS: Unremarkable. No acute fracture. No subluxation. Normal alignment. Preservation of the joint space. No sclerotic or destructive changes observed. SOFT TISSUES: Unremarkable. No soft tissue swelling or gas. No radiopaque foreign body. RAD/Ankle min 3 Views IMPRESSION: Negative right ankle x-rays. Electronically Signed: Jesus Hay MD at 13:54 EST ,
--- NOTE | 2022-03-23 13:18 | EDS_ITS ---
HPI History of Present Illness Chief Complaint: Lower Extremity Injury Informant: patient Onset/Context/Timing Onset: Yesterday Narrative Narrative: Inversion injury right ankle and foot yesterday around 9 PM. Toy was left on the step when she came down. No head injuries. She broke her metatarsals a year ago followed by podiatry at [facility]. She had no surgical intervention she was in a cast. She took ibuprofen 800 mg and 2 Tylenol 3 hours ago. She does not want anything stronger for pain. Prior similar symptoms: Yes PFSH PFS Medical History Anemia Arthritis Asthma history of child Incontinence Seizures Severe headache Home Medications aripiprazole 10 mg tablet (Abilify) 10 mg PO QHS 05/09/21 [History Last Taken Unknown] prazosin 1 mg capsule 1 mg PO QHS 05/09/21 [History Last Taken Unknown] escitalopram oxalate 10 mg tablet mg 03/23/22 [History Last Taken Unknown] methylphenidate HCl 10 mg tablet mg 03/23/22 [History Last Taken Unknown] Allergy/AdvReac Type Severity Reaction Status Date / Time amoxicillin Allergy Hives Verified 03/23/22 12:59 calamine Allergy Rash Verified 03/23/22 12:59 coconut oil Allergy Rash Verified 03/23/22 12:59 erythromycin base Allergy Hives Verified 03/23/22 12:59 [Erythromycin Base] fentanyl Allergy Other Verified 03/23/22 12:59 ferrous sulfate Allergy Anaphylaxis Verified 03/23/22 12:59 latex Allergy Rash Verified 03/23/22 12:59 onion Allergy swollen Verified 03/23/22 12:59 tongue Penicillins Allergy Hives Verified 03/23/22 12:59 tobramycin Allergy Other Verified 03/23/22 12:59 atomoxetine [From Strattera] AdvReac Other Verified 03/23/22 12:59 diphenhydramine HCl AdvReac Chest Verified 03/23/22 12:59 [From Benadryl] tightness EKLUTNA 40 FOOD DYE Allergy Anaphylaxis Uncoded 03/23/22 12:59 Social History Smoking Status: Current every day smoker tobacco type: cigarettes alcohol intake: never ROS ROS ED Constitutional Constitutional ED: Denies chills, fever(s) or sweats Eyes Eyes: Denies change in vision ENT ENT ED: Denies dysphagia or sore throat Cardiovascular Cardiovascular: Denies chest pain, leg edema, palpitations or racing heartbeat Respiratory/Chest Respiratory/Chest: Denies cough, dyspnea or dyspnea on exertion Gastrointestinal Gastrointestinal: Denies abdominal pain, diarrhea, nausea or vomiting Genitourinary Genitourinary ED: Denies dysuria, hematuria or urinary frequency Musculoskeletal Musculoskeletal: Reports extremity pain and other Details: Right ankle and foot pain ; Denies back pain or neck pain Integumentary Denies rash or wounds Neurologic Neurologic: Denies headache(s), paresthesias or weakness EXAM Physical Exam Const Vital Signs: 03/23/22 12:58 Temperature 96.4 F L Temperature Source Temporal Pulse Rate 92 Respiratory Rate 18 Blood Pressure 110/74 Blood Pressure Mean 86 Pulse Ox 100 Oxygen Delivery Method Room Air Positive well nourished and well developed General Appearance ED: well developed and NAD HEENT Reports moist mucous membranes normocephalic and atraumatic Eyes PERRL, EOMs intact bilaterally and conjunctivae normal General Eye ED: Yes normal appearance of both eyes Neck no lymphadenopathy and supple General: Negative for tenderness Chest Wall Chest: Negative for tenderness Resp normal respiratory effort and normal air movement Effort and Inspection: symmetric chest movement; Negative for respiratory distress Cardio regular rate, regular rhythm and no murmurs Peripheral Pulses: pulses 2+ throughout GI normal to inspection, nondistended, normoactive bowel sounds and non-tender Palpation: Negative for guarding or rebound tenderness present Back/Spine no CVA tenderness and no thoracic nor lumbar tenderness Extremity Extremity Narrative: Right lower extremity: No hip or knee tenderness there is tenderness medial and lateral malleolus along with midfoot tenderness. Skin intact. There is no deformities. There is ecchymosis on the lateral aspect of the midfoot. Neuro vas intact distally. General Extremety ED: Negative for edema or tenderness General Extremity: Negative for edema Neuro oriented x3 and no sensory deficits noted Sensorium / Orientation: awake and alert Skin no rashes or lesions noted and no wounds MDM MDM MDM Narrative Medical decision making narrative: Patient declines any additional pain medicines. X-ray 3 view right ankle and 3 views right foot obtained. Films reviewed by myself and read by radiology negative for any fracture or dislocation. She requesting a walking boot due to the pain. This was provided. She did not need crutches. 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 She will continue Tylenol and ibuprofen. All questions were answered. Radiography Diagnostic Testing: Clinical Impression(s) from Imaging Studies Ankle X-Ray 03/23/22 13:18 IMPRESSION: Negative right ankle x-rays. Electronically Signed: Jesus Hay MD at 13:54 EST Reading Location ID and State: [facility] / [place] , Service support , Foot X-Ray 03/23/22 13:18 IMPRESSION: Negative right foot x-rays. Electronically Signed: Jesus Hay MD at 13:54 EST Reading Location ID and State: [facility] / [place] , Service support , Discharge Plan Triage Chief Complaint: Lower Extremity Injury ED Provider: Donny Moreira Dx/Rx/DC Orders Clinical Impression: Right ankle sprain, Right foot sprain Instructions: ED Foot Sprain, ED Ankle Sprain (Adult) Prescriptions: No Action prazosin 1 mg Capsule 1 mg PO QHS aripiprazole [Abilify] 10 mg Tablet 10 mg PO QHS methylphenidate HCl 10 mg tablet escitalopram oxalate 10 mg tablet Primary Care Provider: Gagandeep Pendleton Referrals: Miguel Pearce DPM [Med Staff - Active Staff] - 1 Week if not improving Gagandeep Pendleton MD [Primary Care Provider] - Activity Restrictions/Additional Instructions: Right ankle and foot x-ray negative. Disposition Disposition: Home, Self Care Discharge Date/Time: 03/23/22 14:56
== END 2022-03-23 14:56 | disposition home or self-care (01) ==
PROVIDERS: Emergency Provider Emergency Medicine; PCP Family Medicine; Visit Provider Emergency Medicine
DX: S93.401A Sprain of unspecified ligament of right ankle, initial encounter (principal); W18.09XA Striking against other object with subsequent fall, initial encounter
CPT/HCPCS: 73610; 73630; 99283

== ENCOUNTER 2023-01-12 16:54 | Emergency (ER) | payer MEDICAID, SELFPAY ==
[2023-01-12 16:55] VITALS: BP 145/85; PULSE 96; RESP 22; TEMP 36.2; O2SAT 100; BMI 39.0
--- NOTE | 2023-01-12 17:07 | EKG12_ITS ---
Test Reason : SOB Blood Pressure : / mmHG Vent. Rate : 088 BPM Atrial Rate : 088 BPM P-R Int : 162 ms QRS Dur : 084 ms QT Int : 352 ms P-R-T Axes : 057 010 040 degrees QTc Int : 425 ms Normal sinus rhythm Normal ECG Confirmed by GERTRUDE RIVEAR ([id number]), loan expeditor VICTOR MANUEL SCOTT ([id number]) on 01/21/2023 2:01:03 PM Referred By: KAR/ANH Confirmed By:GERTRUDE RIVERA
--- NOTE | 2023-01-12 17:48 | ED.RN ---
STATES SHE DID NOT FEEL LIKE WAITING, SHE HAS KIDS AT HOME. SINCE DR SEEN EKG AND SHE ISN'T DYING SHE IS GOING HOME.
== END 2023-01-12 17:59 | disposition left against medical advice (07) ==
LOC: ED 18:13
PROVIDERS: PCP Family Medicine
DX: J40 Bronchitis, not specified as acute or chronic (principal)
CPT/HCPCS: 93005

== ENCOUNTER 2023-06-05 09:06 | Emergency (ER) | payer MEDICAID, SELFPAY ==
[2023-06-05 09:06] VITALS: BP 128/78; PULSE 93; RESP 16; TEMP 36.4; O2SAT 99; BMI 39.4
--- NOTE | 2023-06-05 09:23 | RAD_ITS ---
STUDY: X-RAY - LEFT FOOT CLINICAL: Female, 42 years old. Injury TECHNIQUE: 3 view(s) of the foot. COMPARISON: Comparison is made with prior study dated February 17, 2021. FINDINGS: There is an enthesophyte involving the posterior superior calcaneus at the site of insertion of the Achilles tendon. Tiny plantar spur. Normal visualized subtalar, talonavicular, calcaneocuboid, tarsal and tarsometatarsal articulations. Normal metatarsi. Normal metatarsophalangeal joint of the great toe. Normal tibial and fibular sesamoid bones. Normal interphalangeal joint of the great toe. Normal phalanges of the great toe. Normal second through fifth metatarsophalangeal joints. Normal interphalangeal joints and phalanges of the lesser toes. The soft tissue structures are unremarkable. RAD/Foot min 3 Views IMPRESSION: No acute abnormality is seen. Electronically Signed: Jose Messina MD at 10:29 EST ,
--- NOTE | 2023-06-05 09:27 | ED.VIS.LOWEX ---
HPI History of Present Illness HPI Narrative: 42-year-old female was cleaning up her children's toys 2 days ago on Thursday stepped on one of their 20s rolled her left foot and is complaining of pain to her left foot around the MTP joints since that time. Painful to walk on. No prior history or surgery to the left foot. No other complaints. Chief Complaint: Lower Extremity Injury Informant: patient Occured/Mechanism Mechanism/Context: Yes injury and Yes blunt trauma Onset/Context/Timing Onset: Days Context: Sudden Onset Timing: Continuous Quality of Pain: Sharp Current Severity: Moderate Maximum Severity: Moderate Associated Symptoms Associated Symptoms: Negative for Parasthesia, Weakness or Loss of Funtion Narrative Narrative: 42-year-old female injured her left foot 2 days ago complaining of pain. No prior history of surgery. Prior similar symptoms: No Recent Illness/Hospitalization: No PFSH PFSH Medical History Anemia Arthritis Asthma history of child Incontinence Left knee pain Patellar instability of left knee Seizures Severe headache Home Medications prazosin 1 mg capsule 1 mg PO QHS 05/09/21 [History Last Taken Unknown] escitalopram oxalate 10 mg tablet mg 03/23/22 [History Last Taken Unknown] aripiprazole 10 mg tablet (Abilify) 15 mg PO QHS 12/29/22 [History Last Taken Unknown] Allergy/AdvReac Type Severity Reaction Status Date / Time amoxicillin Allergy Hives Verified 03/24/23 09:29 calamine Allergy Rash Verified 03/24/23 09:29 coconut oil Allergy Rash Verified 03/24/23 09:29 erythromycin base Allergy Hives Verified 03/24/23 09:29 [Erythromycin Base] fentanyl Allergy Other Verified 03/24/23 09:29 ferrous sulfate Allergy Anaphylaxis Verified 03/24/23 09:29 latex Allergy Rash Verified 03/24/23 09:29 Penicillins Allergy Hives Verified 03/24/23 09:29 red (food color) Allergy Anaphylaxis Verified 03/24/23 09:29 tobramycin Allergy Other Verified 03/24/23 09:29 atomoxetine [From Strattera] AdvReac Other Verified 03/24/23 09:29 diphenhydramine HCl AdvReac Chest Verified 03/24/23 09:29 [From Benadryl] tightness Family History Father Alcoholism Mother Mental disorder Other Arthritis CVA (cerebral vascular accident) Cancer Hypertension Myocardial infarction Surgical History H/O section H/O right wrist surgery History of tubal ligation Social History Smoking Status: Current every day smoker tobacco type: cigarettes alcohol intake: never what type of physical activity do you participate in: walking and yoga ROS ROS ED ROS Narrative Denies recent illness. Review of Systems ROS Unobtainable: Denies due to encephalopathy Constitutional Constitutional ED: Denies chills, fever(s), subjective, sweats or weight loss Eyes Eyes: Denies blurry vision, change in vision or diplopia ENT ENT ED: Denies ear pain, rhinorrhea or sore throat Cardiovascular Cardiovascular: Denies chest pain or palpitations Respiratory/Chest Respiratory/Chest: Denies cough or dyspnea Gastrointestinal Gastrointestinal: Denies abdominal pain Genitourinary Genitourinary ED: Denies dysuria or hematuria Musculoskeletal Musculoskeletal: Denies arthralgias Integumentary Denies abscess Neurologic Neurologic: Denies headache(s) or paresthesias Endocrine Endocrinology: Denies polydipsia Hematologic/Lymphatic Hematologic/Lymphatic: Denies easy bleeding Allergic/Immunologic Allergic/Immunologic ED: Denies mouth swelling EXAM Physical Exam Narrative Exam Narrative: Well-appearing 42-year-old female. Vital signs stable afebrile. HEENT exam unremarkable atraumatic. Pupils round reactive light. Neck nontender. Back and spine nontender. Lungs clear. Equal symmetrical. Heart regular rhythm rate about 90 no murmur. Chest wall and ribs nontender. Abdomen soft nontender. Moving all 4 extremities. Neurovascular intact. Left foot tenderness primarily anterior aspect and along the MTPs. No deformity. Normal DP pulse. Able to wiggle her toes. Normal touch sensation. Skin intact. No significant swelling. Ankle nontender. Tib-fib nontender. Upper extremities and right Lower extremity unremarkable. She is awake alert no focal motor deficits. Const Vital Signs: 06/05/23 09:06 Temperature 97.6 F L Temperature Source Temporal Pulse Rate 93 Respiratory Rate 16 Blood Pressure 128/78 H Blood Pressure Mean 94 Pulse Ox 99 Oxygen Delivery Method Room Air Positive well nourished and well developed; Negative for cachectic, contractures or unkempt General Appearance ED: well developed and NAD; Negative for unkempt, cachectic or contractures Nutritional Appearance: Negative for cachectic HEENT Reports moist mucous membranes normocephalic and atraumatic; Negative for trauma or tenderness Eyes General Eye ED: Negative for other Neck full ROM and supple Thyroid: Negative for tender Lymph Lymphatic: Negative for other Chest Wall inspection of chest normal and palpation of chest normal Chest: Negative for other Resp normal respiratory effort, no retractions and clear to auscultation bilaterally Effort and Inspection: Negative for pain with movement Auscultation: Negative for rales, rhonchi or wheezes Cardio regular rate, regular rhythm, S1 normal heart sound, S2 normal heart sound and no murmurs Rate: Negative for bradycardia or tachycardic Rhythm: Negative for abnormal rhythm Bruits: Negative for other GI non-tender, non-distended and no masses Inspection: Negative for abdominal distention Auscultation: normoactive bowel sounds Palpation: soft; Negative for tender or guarding Bladder / Kidney Exam: No other Back/Spine no CVA tenderness General Back: Negative for CVA tenderness, swelling or other Cervical Spine: Negative for cervical spine tenderness Thoracic Spine / Upper Back: Negative for thoracic spinal tenderness Lumbar Spine / Lower Back: Negative for lumbar spinal tenderness Extremity normal to inspection and full ROM Extremity Narrative: Except tenderness left foot along MTP and anterior aspect. Normal DP pulse. Able to wiggle her toes. Normal sensation. No significant swelling or deformity. General Extremety ED: Yes weight-bearing difficulty; Negative for cyanosis General Extremity: weight-bearing difficulty; Negative for cyanosis Neuro oriented x3, CN's II-XII intact bilaterally, moves all extremities and no sensory deficits noted Sensorium / Orientation: alert, oriented to person, oriented to place and oriented to time; Negative for orientation impaired or confused Motor Exam: strength 5/5 throughout Psych mental status grossly normal Appearance: Negative for unkempt Speech: No other Skin no wounds Lesions: no lesions Rashes: no rashes Trauma: Negative for abrasion, laceration or puncture MDM MDM MDM Narrative Medical decision making narrative: Patient stepped on a toy on Thursday complaining of pain in her left foot. X-ray being obtained. Repeat exam unchanged. Patient I went over her x-rays. Discharged with a postop shoe. Ice and elevate. Motrin Tylenol for pain. History & Record Review Discussion w/independent historian: Patient Additional record(s) reviewed:: Prior inpatient record, Prior outpatient record and Prior ED visit Radiography Diagnostic Testing: Left foot x-ray, 3 views, interpreted by myself shows no acute abnormality. No fracture or dislocation. Patient I went over her x-rays. Discharge Plan Triage Chief Complaint: Lower Extremity Injury ED Provider: Vick Burnett Dx/Rx/DC Orders Clinical Impression: Sprain of left foot Instructions: ED Foot Sprain Prescriptions: No Action prazosin 1 mg Capsule 1 mg PO QHS aripiprazole [Abilify] 10 mg tablet 15 mg PO QHS escitalopram oxalate 10 mg tablet Primary Care Provider: Deedee Valero Referrals: Gagandeep Pendleton MD [Non-Staff] - 1 Week if not improving Activity Restrictions/Additional Instructions: Ice and elevate your foot to decrease pain and swelling. Motrin for pain and swelling and Tylenol for pain. Increase activity as tolerated. Postop shoe to help with weightbearing. This should progressively start getting better if it is not follow-up to have it reevaluated you may need further imaging if it is not getting better. Your x-rays today were normal. Disposition Disposition: Home, Self Care
--- OUTSIDE RECORDS SUMMARY | 2023-06-05 12:14 | XMS RPT_ITS | CCD ---
Author Name Unknown Address [id number] [place] [address] Organization [facility] Care Team Providers Care World Travel Counselor Name Role Phone Marietta Sheriff Unavailable MOMO PACE Unavailable Unavailable KATELYNNMOMO Unavailable Unavailable UNKNOWN, REFERR Unavailable Unavailable ELAYNE LAWSON Unavailable Unavailable KATELYNNMOMO Unavailable Unavailable GILA PACEFER T Unavailable Unavailable CHRISTOPHER LOMBARDO Unavailable Unavailable GAGANDEEP PENDLETON Unavailable Unavailable Gagandeep Pendleton Primary Care Provider Gagandeep Pendleton MD Primary Care Provider Allergies Allergy Classification Reported Allergen(s) Allergy Type Date of Onset Reaction(s) Facility (3 sources) amoxicillin; Translations: [AMOXICILLIN] drug allergy 02-04-20 05 [facility] Work Phone: (1 source) atomoxetine drug allergy [facility] Work Phone: (1 source) erythromycin drug allergy [facility] Work Phone: (1 source) penicillin v drug allergy [facility] Work Phone: (1 source) amoxicillin; Translations: [AMOXIL] Drug Allergy [facility] Repository (4 sources) atomoxetine; Translations: [ATOMOXETINE] Drug Allergy 12-12-19 15 Rash [facility] Repository (5 sources) calamine; Translations: [CALAMINE] Drug Allergy 02-04-20 05 [facility] (2 sources) coconut oil; Translations: [COCONUT OIL] Drug Allergy 09-26-19 17 [facility] (1 source) diphenhydrAMINE; Translations: [BENADRYL] Drug Allergy [facility] (4 sources) ferrous sulfate; Translations: [FERROUS SULFATE] Drug Allergy 09-26-19 17 Swelling [facility] Repository (2 sources) Latex; Translations: [LATEX] Propensity to adverse reactions (disorder) 04-21-20 11 Swelling [facility] (4 sources) onion extract; Translations: [ONION] Drug Allergy 03-14-20 05 [facility] Repository (5 sources) tobramycin; Translations: [TOBRAMYCIN] Drug Allergy 03-12-20 06 [facility] (1 source) ERYTHROPOIETIN ANALO; Translations: [ERYTHROPOIETIN ANALO] Propensity to adverse reactions (disorder) [facility] Repository (4 sources) Contrast media; Translations: [RED DYE] Propensity to adverse reactions to drug (disorder) 05-29-19 17 Rash, Shortness Of Breath [facility] Repository (3 sources) corn extract; Translations: [CORN] Drug Allergy 02-04-20 05 [facility] Repository (4 sources) erythromycin; Translations: [ERYTHROMYCIN] Drug Allergy 02-04-20 05 [facility] Repository (4 sources) Penicillins; Translations: [PENICILLINS] Propensity to adverse reactions to drug (disorder) 02-04-20 05 [facility] Repository (3 sources) COCONUT, COCONUT OIL; Translations: [COCONUT, COCONUT OIL] Propensity to adverse reactions to food (disorder) 02-04-20 05 [facility] Repository (2 sources) OTHER; Translations: [OTHER] Propensity to adverse reactions (disorder) 02-04-20 05 [facility] Repository (2 sources) Amoxicillin Drug Allergy 02-04-20 05 [place] (1 source) atomoxetine Drug Allergy 11-04-19 16 [place] (1 source) [place] Oil Drug Allergy 02-04-20 05 [place] (1 source) diphenhydrAMINE Drug Allergy 05-18-19 17 Other (See Comments) [place] (1 source) latex condom [Other] Propensity to adverse reactions 02-04-20 [facility] Work Phone: Medications Current Medications Medication Drug Class(es) Dates Sig (Normalized) Sig (Original) albuterol 1 mg/ml inhalant solution (3 sources) beta2-Adrenergic Agonist Start: 06-06-2019 albuterol (PROVENTIL) (5 MG/ML) 0.5% nebulizer solution Completed/Discontinued Medications Medication Drug Class(es) Dates Sig (Normalized) Sig (Original) acetaminophen 325 mg oral tablet (1 source) acetaminophen (T YLENOL) 325 mg tablet Take 500 mg by mouth every 6 hours as needed. 0 Active Problems Active Problems Problem Classification Problem Date Documented Date Episodic/Chronic Anxiety disorders (2 sources) Anxiety disorder, unspecified; Translations: [Posttraumatic stress disorder] Onset: 12-13-2016 06-08-2019 Chronic Asthma (3 sources) Unspecified asthma, uncomplicated; Translations: [Asthma] Onset: 12-18-2014 06-08-2019 Chronic Attention-deficit conduct and disruptive behavior disorders (2 sources) Attention deficit hyperactivity disorder; Translations: [Attention-deficit hyperactivity disorder, unspecified type] Onset: 12-18-2014 06-08-2019 Chronic Mood disorders (1 source) Bipolar I disorder; Translations: [Bipolar disorder, unspecified] Onset: 05-12-2005 04-29-2021 Chronic Other complications of (2 sources) Anemia complicating , third trimester; Translations: [Obesity complicating , third trimester] Onset: 12-13-2016 Chronic Other lower respiratory disease (2 sources) Dyspnea; Translations: [Shortness of breath] Onset: 06-08-2019 06-08-2019 Episodic Other lower respiratory disease (2 sources) Chronic cough; Translations: [Chronic cough] Onset: 06-08-2019 06-08-2019 Episodic Other nervous system disorders (1 source) Carpal tunnel syndrome; Translations: [Carpal tunnel syndrome, right upper limb] Onset: 07-30-2016 07-30-2016 Chronic Other nutritional; endocrine; and metabolic disorders (2 sources) Hypomagnesemia; Translations: [Obesity, unspecified] Onset: 12-13-2016 Chronic Skin and subcutaneous tissue infections (1 source) Infection of skin; Translations: [Local infection of the skin and subcutaneous tissue, unspecified] Episodic Unclassified (1 source) Body mass index (BMI) 37.0-37.9, adult; Translations: [BODY MASS INDEX BMI 37.0] Onset: 12-13-2016 Chronic Unclassified (1 source) 35 weeks gestation of ; Translations: [35 WEEKS GESTATION OF HI] Onset: 12-13-2016 Past or Other Problems Problem Classification Problem Date Documented Da te Episodic/Chronic Deficiency and other anemia (1 source) Anemia, unspecified; Translations: [ANEMIA UNSPECIFIED] Onset: 12-13-2016 Episodic Early or threatened labor (2 sources) False labor before 37 completed weeks of gestation, third trimester; Translations: [ labor with delivery, unspecified trimester, fetus 1] Onset: 12-13-2016 Episodic Fever of unknown origin (1 source) Fever, unspecified; Translations: [FEVER UNSPECIFIED] Onset: 12-13-2016 Episodic Fluid and electrolyte disorders (1 source) Hypokalemia; Translations: [HYPOKALEMIA] Onset: 12-13-2016 Episodic Hypertension complicating ; childbirth and the puerperium (1 source) Unspecified pre-eclampsia, third trimester; Translations: [UNS PRE-ECLAMPSIA THIRD] Onset: 12-13-2016 Episodic Joint disorders and dislocations; trauma-related (1 source) Other tear of medial meniscus, current injury, left knee, initial encounter; Translations: [Other tear of medial meniscus, current injury, left knee, initial encounter] Onset: 08-20-2016 08-29-2016 Episodic Other complications of (6 sources) Other specified related conditions, third trimester; Translations: [Endocrine, nutritional and metabolic diseases complicating , third trimester] Onset: 12-13-2016 Episodic Other non-traumatic joint disorders (6 sources) Pain in right shoulder; Translations: [Knee pain] Onset: 03-08-2015 03-08-2015 Episodic Other upper respiratory disease (1 source) Acute bronchospasm; Translations: [Acute bronchospasm] Onset: 06-08-2019 06-08-2019 Episodic Screening and history of mental health and substance abuse codes (1 source) H/O: depression; Translations: [Personal history of other mental and behavioral disorders] Onset: 05-07-2017 05-07-2017 Episodic Sprains and strains (3 sources) Sprain of unspecified site of left knee, initial encounter; Translations: [Strain of muscle(s) and tendon(s) of the rotator cuff of right shoulder, initial encounter] Onset: 03-08-2015 08-29-2016 Episodic Superficial injury; contusion (1 source) Contusion of right wrist, initial encounter; Translations: [Contusion of right wrist, initial encounter] Onset: 09-12-2015 09-24-2015 Episodic Results Test Name Value Interpretation Reference Range Facil ity Vital Signs Date Time Vital Sign Value Performing Clinician Facility 08-26-2021 12:14-0400 Body temperature 98.29 [degF] Gina Parrish APRN.CNP Work Phone: [facility] 08-26-2021 12:14-0400 Body weight 97.98 kg Gina Parrish APRN.HEADING MACHINE OPERATOR Work Phone: [facility] 08-26-2021 12:14-0400 Diastolic blood pressure 68 mm[Hg] Gina Parrish APRN.HEADING MACHINE OPERATOR Work Phone: [facility] 08-26-2021 12:14-0400 Heart rate 97 /min Gina Parrish APRN.HEADING MACHINE OPERATOR Work Phone: [facility] 08-26-2021 12:14-0400 Respiratory rate 18 /min Gina Parrish APRN.HEADING MACHINE OPERATOR Work Phone: [facility] 08-26-2021 12:14-0400 SaO2% (BldA) [Mass fraction] 98 % Gina Parrish APRN.HEADING MACHINE OPERATOR Work Phone: [facility] 08-26-2021 12:14-0400 Systolic blood pressure 106 mm[Hg] Gina Parrish APRN.HEADING MACHINE OPERATOR Work Phone: [facility] 07-11-2019 09:07-0400 BMI (Body Mass Index) 37.03 kg/m2 [facility] [place] 07-11-2019 09:07-0400 Body weight 108.86 kg [facility] [place] 07-11-2019 09:07-0400 Height 171.5 cm [facility] [place] 07-11-2019 09:07-0400 Pulse (Heart Rate) 97 /min [facility] 07-11-2019 09:07-0400 Pulse Oximetry 99 % [facility] 07-11-2019 09:07-0400 Respiratory Rate 18 /min [facility] 03-08-2015 08:05-0500 BP Diastolic 76 mm[Hg] Marietta Sheriff [employer] [facility] Work Phone: 03-08-2015 08:05-0500 BP Systolic 122 mm[Hg] Mariettadaniel Sheriff [employer] [facility] Work Phone: 03-08-2015 08:05-0500 Height 168.91 cm Marietta Sharita [employer] [facility] Work Phone: 03-08-2015 08:05-0500 Pulse (Heart Rate) 74 /min Mariettadaniel Sheriff [facility] [employer] [facility] Work Phone: 03-08-2015 08:05-0500 Weight 95.26 kg Mariettadaniel Sheriff [employer] Work Phone: Encounters Encounter Date Encounter Type Care Provider Facility Start: 08-26-2021 End: 08-26-2021 Patient encounter procedure Gina Parrish APRN.ROSALINA Work Phone: [facility] Procedures Date Procedure Procedure Detail Performing Clinician Start: 07-11-2019 Brncdilat rspse spmt ry pre&post-brncdilat admn [facility] Work Phone: Start: 07-11-2019 Ct thorax w/o contra [facility] Work Phone: Start: 07-11-2019 Echo tthrc r-t 2d w/wom-mode compl spec&colr d [facility] Work Phone: Start: 03-08-2015 End: 03-09-2015 Documentation of current medications Neville Kaye Work Phone: Start: 03-08-2015 End: 03-18-2015 Drain/inject, joint/bursa Neville Kaye Work Phone: Plan of Treatment Date Care Activity Detail Author Start: 2032 Shingles Vaccine (1 of 2) Shingles Vaccine (1 of 2) [place] Start: 12-02-2027 DTaP/Tdap/Td vaccine (8 - Td) DTaP/Tdap/Td vaccine (8 - Td) [place] Start: 12-02-2027 Urine microalbumin profile DTAP,TDAP,TD (8 - Td or Tdap) [facility] Start: 01-02-2022 Influenza vaccination INFLUENZA (Season Ended) [facility] Start: 07-23-2021 ANNUAL PCP TEAM CHRONIC DISEASE VISIT ANNUAL PCP TEAM CHRONIC DISEASE VISIT [facility] Start: 05-21-2021 COVID-19 VACCINE (3 - Booster for Moderna series) COVID-19 VACCINE (3 - Booster for Moderna series) [facility] Start: 02-06-2021 HPV TESTING HPV TESTING [facility] Start: 02-06-2021 PAP TESTING PAP TESTING [facility] Start: 01-02-2019 Influenza vaccination Flu vaccine (#1) [place] Start: 08-27-2016 End: 08-27-2016 Physical Therapy General Physical Therapy General Rehab [facility], [address] [place] [address], [id number] [place] [employer] [facility] Work Phone: Start: 07-30-2016 End: 10-24-2016 Occupational Therapy General Occupational Therapy [facility], [address] [place] [address], [id number] [employer] [facility] Work Phone: Start: 09-26-2015 End: 09-26-2015 Occupational Therapy General Occupational Therapy [facility], [address] [place] [address], [id number] [employer] [facility] Work Phone: Start: 10-28-2003 Cervical cancer screen Cervical cancer screen [place], [place] Start: 1997 HIV screen HIV screen [place], [place] Start: 1994 Adult depression screening assessment DEPRESSION SCREENING [facility] Start: 1988 Pneumococcal 0-64 years Vaccine (1 of 1 - PPSV23) Pneumococcal 0-64 years Vaccine (1 of 1 - PPSV23) [place] Start: 10-28-1983 Varicella vaccine (1 of 2 - 2-dose childhood series) Varicella vaccine (1 of 2 - 2-dose childhood series) [facility] Immunizations Immunization Date Immunization Notes Care Provider Donna garciamarlena 12-01-2017 tetanus toxoid, redu valerie diphtheria toxoid, and acellular pertussis vaccine, adsorbed Gina Francois [employer] Work Phone: [facility] Work Phone: 10-15-2016 tetanus toxoid, redu valerie diphtheria toxoid, and acellular pertussis vaccine, adsorbed Gina Francois [employer] Work Phone: [facility] Work Phone: 08-20-1987 diphtheria, tetanus toxoids and pertussis vaccine Gina Francois [employer] Work Phone: [facility] Work Phone: 08-20-1987 trivalent poliovirus vaccine, live, oral Gina Francois [employer] Work Phone: [facility] Work Phone: 12-18-1984 diphtheria, tetanus toxoids and pertussis vaccine Gina Francois [employer] Work Phone: [facility] Work Phone: 12-18-1984 trivalent poliovirus vaccine, live, oral Gina Francois [employer] Work Phone: [facility] Work Phone: 02-16-1984 measles, mumps and rubella virus vaccine Gina Francois [employer] Work Phone: [facility] Work Phone: 04-08-1983 diphtheria, tetanus toxoids and pertussis vaccine Gina Francois [employer] Work Phone: [facility] Work Phone: 04-08-1983 trivalent poliovirus vaccine, live, oral Gina Francois WASHERY BOSS.HEADING MACHINE OPERATOR Work Phone: [facility] Work Phone: 02-25-1983 diphtheria, tetanus toxoids and pertussis vaccine Gina Francois [employer].HEADING MACHINE OPERATOR Work Phone: [facility] Work Phone: 02-25-1983 trivalent poliovirus vaccine, live, oral Gina Francois [employer].HEADING MACHINE OPERATOR Work Phone: [facility] Work Phone: 01-28-1983 diphtheria, tetanus toxoids and pertussis vaccine Gina Francois [employer].HEADING MACHINE OPERATOR Work Phone: [facility] Work Phone: 01-28-1983 trivalent poliovirus vaccine, live, oral Gina Francois [employer] Work Phone: [facility] Work Phone: Payers Date Payer Category Payer Medicaid [facility] MEDICAID [facility] [employer] MEDICAID [id number] 2021-Present [phone] [address] [place] [address] Medicaid [id number] 2017 Unknown BCBS BCBS OUT OF STATE xxxxxxxxxxxxxxx 2017-Present [address] [place] [address] xxxxxxxxxxxxxxx [id number] 2016 Unknown [id number] Social History Date Type Detail Facility Start: 06-08-2019 [facility] [place] End: 04-03-2019 History of tobacco use Current smoker [place] Start: 06-08-2019 End: 08-26-2021 Alcohol intake Current non-drinker of alcohol (finding) [place] Start: 1980 [facility]igned At [facility] Start: 03-27-2021 End: 05-22-2016 Tobacco smoking status NHIS Smokes tobacco daily [facility] End: 05-22-2016 History of tobacco use Cigarette Smoker [facility] Start: 03-27-2021 Cigarettes smoked current (pack per day) - Reported 1 [facility] Start: 03-27-2021 Tobacco use and exposure Formmanny r smokeless tobacco user [facility] End: 05-22-2016 History of tobacco use User of smokeless tobacco [facility] Start: 08-16-2021 End: 08-26-2021 Exposure to SARS-CoV-2 (event) Not sure [facility] Clinical Notes 12-15-2017 to 08-26-2021 Gina Parrish APRN.HEADING MACHINE OPERATOR - 08/26/2021 12:27 PM EDT Note Date & Type Note Facility 08-26-2021 Note HNO ID: [id number] Author: Gina Parrish APRN.HEADING MACHINE OPERATOR Service: ? Author Type: Nurse Practitioner Type: Progress Notes Filed: 08/26/2021 1:04 PM Note Text: Subjective Patient came in with complaints of possible tattoo infection. Said it is painful, bubbled up, and draining.Patient got a new tattoo 4 days ago and Thursday was out all day in the sun without it covered. Patient said she called the environment artist and he sun the sun caused the rejection to happen. denies any other symptoms at this time. The history is provided by the patient. No russian language professor was used. Review of Systems Constitutional: Negative. Skin: Negative. Objective Physical Exam Constitutional: Appearance: Normal appearance. Pulmonary: Effort: Pulmonary effort is normal. Skin: General: Skin is warm. Comments: Two playing cards tattooed in this area. Patient has significant drainage and bubbling anywhere there is/was ink. minimal redness noted. Neurological: Mental Status: She is alert. PAST MEDICAL HISTORY Diagnosis Date - #[id number] collarbone - Abnormal Pap smear of cervix +HPV - Anemia - Arthritis knees - Asthma - Bipolar I disorder, most recent episode (or current) unspecified - Chlamydia age 22 - Cholestasis of 12/04/2016 - Chronic right SI joint pain - Eczema - Mild pre-eclampsia in third trimester 12/15/2016 - PTSD (post-traumatic stress disorder) - Seizure (HCC) fever induced PAST SURGICAL HISTORY Procedure Laterality Date - DELIVERY ONLY 12/25/2017 c/s low transverse - DANDC (INCOMPLETE AB), ANY TRIMESTER - EXPLORATORY OF ABDOMEN 2012 dysmenhorrea - normal laparoscopy ALLERGIES Ferrous Sulfate; Amoxicillin; Calamine; Coconut, Coconut Oil; [place]; Erythromycin; Latex Condom [Other]; Onion; Penicillins; Red Dye; Strattera [Atomoxetine]; and Tobramycin MEDICATIONS albuterol (PROVENTIL) 2.5 mg /3 mL (0.083 %) nebulizer solution Use 3 mL via nebulizer every 4 hours as needed for Wheezing/Shortness of Breath. Use over 5-15minutes. SUMAtriptan (IMITREX) 100 mg tablet Take 100 mg by mouth as needed. hydrOXYzine HCl (ATARAX) 25 mg tablet ONE TABLET BY MOUTH FOUR TIMES DAILY NEEDED FOR ITCHING/ALLERGIES acetaminophen (TYLENOL) 325 mg tablet Take 500 mg by mouth every 6 hours as needed. sulfamethoxazole-trimethoprim (BACTRIM DS) 800-160 mg per tablet Take 1 tablet by mouth twice daily for 5 days. DUPILUMAB SUBCUTANEOUS Inject subcutaneously. medroxyPROGESTERone (PROVERA) 10 mg tablet Take 1 tablet by mouth once daily. 10 days a month as needed to start menses ondansetron orally disintegrating (ZOFRAN ODT) 4 mg disintegrating tablet Take 1 tablet by mouth every 8 hours as needed. ibuprofen (MOTRIN) 800 mg tablet Take 800 mg by mouth every 6 hours as needed. FAMILY HISTORY Problem Relation Age of Onset - Breast Cancer Mother 40 - Arthritis Mother Rheumatoid - Breast Cancer Maternal Grandmother - Cancer Maternal Grandfather lung Social History Tobacco Use - Smoking status: Current Every Day Smoker Packs/day: 1.00 Years: 25.00 Pack years: 25.00 Types: Cigarettes Last attempt to quit: 05/22/2016 Years since quittin.2 - Smokeless tobacco: Former User Quit date: 05/22/2016 - Tobacco comment: started at age 8. less then that now. Vaping Use - Vaping Use: Former Substance Use Topics - Alcohol use: No Comment: has not had drink since 01/06 - Drug use: No Comment: large caffeine ASSESSMENT/PLAN: 1. Skin infection - ICD9: 686.9, ICD10: L08.9 At this time patient placed on bactrium bid for 5days. Instructed to keep clean and dry with a mild soap. Monitor for signs of worsening and if seems to be getting worse follow up with PCP. Gina Parrish APRN.[facility] 08-26-2021 History of Present illness Narrative Images from the original note were not included. Subjective Patient came in with complaints of possible tattoo infection. Said it is painful, bubbled up, and draining.Patient got a new tattoo 4 days ago and Thursday was out all day in the sun without it covered. Patient said she called the environment artist and he sun the sun caused the rejection to happen. denies any other symptoms at this time. The history is provided by the patient. No russian language professor was used. Review of Systems Constitutional: Negative. Skin: Negative. Objective Physical Exam Constitutional: Appearance: Normal appearance. Pulmonary: Effort: Pulmonary effort is normal. Skin: General: Skin is warm. Comments: Two playing cards tattooed in this area. Patient has significant drainage and bubbling anywhere there is/was ink. minimal redness noted. Neurological: Mental Status: She is alert. PAST MEDICAL HISTORY Diagnosis Date #[id number] collarbone Abnormal Pap smear of cervix +HPV Anemia Arthritis knees Asthma Bipolar I disorder, most recent episode (or current) unspecified Chlamydia age 22 Cholestasis of 12/04/2016 Chronic right SI joint pain Eczema Mild pre-eclampsia in third trimester 12/15/2016 PTSD (post-traumatic stress disorder) Seizure (HCC) fever induced PAST SURGICAL HISTORY Procedure Laterality Date DELIVERY ONLY 12/25/2017 c/s low transverse D&C (INCOMPLETE AB), ANY TRIMESTER EXPLORATORY OF ABDOMEN 2012 dysmenhorrea - normal laparoscopy ALLERGIES Ferrous Sulfate; Amoxicillin; Calamine; Coconut, Coconut Oil; [place]; Erythromycin; Latex Condom [Other]; Onion; Penicillins; Red [place]ye; Strattera [Atomoxetine]; and Tobramycin MEDICATIONS albuterol (PROVENTIL) 2.5 mg /3 mL (0.083 %) nebulizer solution Use 3 mL via nebulizer every 4 hours as needed for Wheezing/Shortness of Breath. Use over 5-15minutes. SUMAtriptan (IMITREX) 100 mg tablet Take 100 mg by mouth as needed. hydrOXYzine HCl (ATARAX) 25 mg tablet ONE TABLET BY MOUTH FOUR TIMES DAILY NEEDED FOR ITCHING/ALLERGIES acetaminophen (TYLENOL) 325 mg tablet Take 500 mg by mouth every 6 hours as needed. sulfamethoxazole-trimethoprim (BACTRIM DS) 800-160 mg per tablet Take 1 tablet by mouth twice daily for 5 days. DUPILUMAB SUBCUTANEOUS Inject subcutaneously. medroxyPROGESTERone (PROVERA) 10 mg tablet Take 1 tablet by mouth once daily. 10 days a month as needed to start menses ondansetron orally disintegrating (ZOFRAN ODT) 4 mg disintegrating tablet Take 1 tablet by mouth every 8 hours as needed. ibuprofen (MOTRIN) 800 mg tablet Take 800 mg by mouth every 6 hours as needed. FAMILY HISTORY Problem Relation Age of Onset Breast Cancer Mother 40 Arthritis Mother Rheumatoid Breast Cancer Maternal Grandmother Cancer Maternal Grandfather lung Social History Tobacco Use Smoking status: Current Every Day Smoker Packs/day: 1.00 Years: 25.00 Pack years: 25.00 Types: Cigarettes Last attempt to quit: 05/22/2016 Years since quittin.2 Smokeless tobacco: Former User Quit date: 05/22/2016 Tobacco comment: started at age 8. less then that now. Vaping Use Vaping Use: Former Substance Use Topics Alcohol use: No Comment: has not had drink since 01/06 Drug use: No Comment: large caffeine ASSESSMENT/PLAN: 1. Skin infection - ICD9: 686.9, ICD10: L08.9 At this time patient placed on bactrium bid for 5days. Instructed to keep clean and dry with a mild soap. Monitor for signs of worsening and if seems to be getting worse follow up with PCP. Gina Parrish APRN.ROSALINA documented in this encounter [facility] 03-27-2021 Note HNO ID: [id number] Author: Alpa Sharif APRN.CNP Service: ? Author Type: Nurse Practitioner Type: Progress Notes Filed: 03/27/2021 9:59 AM Note Text: SUBJECTIVE: Lolly Velez is a 40 year old female. Who presents today with sore thoat, cough congestion and D for 4 days. No fever or loss of taste or smell. She was exposed on the and her kiddos are sick. She is fully vaccinated. HPI PAST MEDICAL HISTORY Diagnosis Date - #[id number] dangeloe - Abnormal Pap smear of cervix +HPV - Anemia - Arthritis knees - Asthma - Bipolar I disorder, most recent episode (or current) unspecified - Chlamydia age 22 - Cholestasis of 12/04/2016 - Chronic right SI joint pain - Eczema - Mild pre-eclampsia in third trimester 12/15/2016 - PTSD (post-traumatic stress disorder) - Seizure (HCC) fever induced FAMILY HISTORY Problem Relation Age of Onset - Breast Cancer Mother 40 - Arthritis Mother Rheumatoid - Breast Cancer Maternal Grandmother - Cancer Maternal Grandfather lung Social History Tobacco Use - Smoking status: Current Every Day Smoker Packs/day: 1.00 Years: 25.00 Pack years: 25.00 Types: Cigarettes Last attempt to quit: 05/22/2016 Years since quittin.8 - Smokeless tobacco: Former User Quit date: 05/22/2016 - Tobacco comment: started at age 8. less then that now. Vaping Use - Vaping Use: Former Substance Use Topics - Alcohol use: No Comment: has not had drink since 01/06 - Drug use: No Comment: large caffeine ALLERGIES Allergen Reactions - Ferrous Sulfate Swelling Facial and throat swelling - Amoxicillin - Calamine - Coconut, Coconut Oil - [place] - Erythromycin - Latex Condom [Other] - Onion - Penicillins - Red Dye Rash, Shortness of Breath - Strattera [Atomoxet* Rash - Tobramycin Current Outpatient Medications Medication Sig Dispense Refill - DUPILUMAB SUBCUTANEOUS Inject subcutaneously. (Patient not taking: Reported on 12/06/2020 ) - medroxyPROGESTERone (PROVERA) 10 mg tablet Take 1 tablet by mouth once daily. 10 days a month as needed to start menses (Patient not taking: Reported on 09/22/2020 ) 30 tablet 1 - ondansetron orally disintegrating (ZOFRAN ODT) 4 mg disintegrating tablet Take 1 tablet by mouth every 8 hours as needed. (Patient not taking: Reported on 12/06/2020 ) 20 tablet 0 - albuterol (PROVENTIL) 2.5 mg /3 mL (0.083 %) nebulizer solution Use 3 mL via nebulizer every 4 hours as needed for Wheezing/Shortness of Breath. Use over 5-15minutes. 1 Package 0 - SUMAtriptan (IMITREX) 100 mg tablet Take 100 mg by mouth as needed. - hydrOXYzine HCl (ATARAX) 25 mg tablet ONE TABLET BY MOUTH FOUR TIMES DAILY NEEDED FOR ITCHING/ALLERGIES 3 - ibuprofen (MOTRIN) 800 mg tablet Take 800 mg by mouth every 6 hours as needed. (Patient not taking: Reported on 12/06/2020 ) - acetaminophen (TYLENOL) 325 mg tablet Take 500 mg by mouth every 6 hours as needed. No current facility-administered medications for this visit. OBJECTIVE: BP 124/82 Pulse 86 Temp 36.4 ?C (97.6 ?F) Resp 18 Wt 101.2 kg (223 lb 3.2 oz) LMP 04/04/2020 (Within Weeks) SpO2 98% BMI 35.49 kg/m? ROS all other systems reviewed and are negative Physical Exam Constitutional: Well developed, well nourished, NAD, AANDO X3. ENT: Head is atraumatic, airway patent, mucosal membranes moist. Eyes: EOMI, PERRL, no drainage, vision unchanged Neck: supple with no palpable lymph nodes, no midline tenderness Cardiac: Normal rate and rhythm, heart sounds S1, S2. no murmurs, rubs or gallops. Respiratory: No retractions or use of accessory muscles. Breath sounds clear and equal bilaterally. : no CVA tenderness MS: no swelling tenderness or deformity in upper or lower extremities, no midline tenderness in thoracic or lumbar spine. Neuro: strength sensation and coordination intact. CN II-XII grossly intact, Skin: warm and dry with out rash, lesion or ecchymosis Psych: alert appropriate, speech clear It was a pleasure to take care of Lolly Velez today. A covid /flu swab was obtained. Results will be back in 1-2 days. She will continue motrin tylenol and increased fluids. She will quarantine as recommended by the CDC Patient will follow up with family physician. They may return to the Urgent Care or go to the ER for worsening symptoms or concerns. Patient verbalized understanding of plan of care and is in agreement. ASSESSMENT/PLAN: 1. Close exposure to COVID-19 virus - ICD9: V01.79, ICD10: Z20.822 - COVID WITH FLUA+B, ROUTINE Alpa Sharif APRN.ROSALINA Sharif APRN.ROSALINA [facility] 12-06-2020 Note HNO ID: [id number] Author: Miguel Hairstonpieter Service: ? Author Type: Physician Type: Progress Notes Filed: 12/06/2020 12:45 PM Note Text: Initial Podiatric Office Visit: Chief Complaint: This 40 year old female who presents with chief complaint:right foot pain HPI Patient presents to clinic for evaluation of right foot. Patient states that she has been experiencing pain in the top of her right foot for approximately one month. She states that she has been working increased hours and increased shifts at work. She states that with the increased hours at work has resulted in increased pain in her right forefoot. The pain has become progressively worse. She has tried to offload the weight to her forefoot by changing the way she walks. She states the pain varies between 4-9/10. She takes ibuprofen which does help with swelling. PAIN EVALUATION 12/06/2020 1111 Pain Level: 4 4-9/10 Pain Location: Foot-Right Description: Stabbing;Sharp Frequency: Continuous Intervention/Comfort measure: Relaxation No results found for: HBA1C PCP: Gagandeep Pendleton MD PAST MEDICAL HISTORY Diagnosis Date - #[id number] collarbone - Abnormal Pap smear of cervix +HPV - Anemia - Arthritis knees - Asthma - Bipolar I disorder, most recent episode (or current) unspecified - Chlamydia age 22 - Cholestasis of 12/04/2016 - Chronic right SI joint pain - Eczema - Mild pre-eclampsia in third trimester 12/15/2016 - PTSD (post-traumatic stress disorder) - Seizure (HCC) fever induced Current Outpatient Medications Medication Sig - albuterol (PROVENTIL) 2.5 mg /3 mL (0.083 %) nebulizer solution Use 3 mL via nebulizer every 4 hours as needed for Wheezing/Shortness of Breath. Use over 5-15minutes. - SUMAtriptan (IMITREX) 100 mg tablet Take 100 mg by mouth as needed. - hydrOXYzine HCl (ATARAX) 25 mg tablet ONE TABLET BY MOUTH FOUR TIMES DAILY NEEDED FOR ITCHING/ALLERGIES - acetaminophen (TYLENOL) 325 mg tablet Take 500 mg by mouth every 6 hours as needed. - DUPILUMAB SUBCUTANEOUS Inject subcutaneously. (Patient not taking: Reported on 12/06/2020 ) - medroxyPROGESTERone (PROVERA) 10 mg tablet Take 1 tablet by mouth once daily. 10 days a month as needed to start menses (Patient not taking: Reported on 09/22/2020 ) - ondansetron orally disintegrating (ZOFRAN ODT) 4 mg disintegrating tablet Take 1 tablet by mouth every 8 hours as needed. (Patient not taking: Reported on 12/06/2020 ) - ibuprofen (MOTRIN) 800 mg tablet Take 800 mg by mouth every 6 hours as needed. (Patient not taking: Reported on 12/06/2020 ) No current facility-administered medications for this visit. ALLERGIES Allergen Reactions - Ferrous Sulfate Swelling Facial and throat swelling - Amoxicillin - Calamine - Coconut, Coconut Oil - [place] - Erythromycin - Latex Condom [Other] - Onion - Penicillins - Red Dye Rash, Shortness of Breath - Strattera [Atomoxet* Rash - Tobramycin PAST SURGICAL HISTORY Procedure Laterality Date - DELIVERY ONLY 12/25/2017 c/s low transverse - DANDC (INCOMPLETE AB), ANY TRIMESTER - EXPLORATORY OF ABDOMEN 2012 dysmenhorrea - normal laparoscopy FAMILY HISTORY Problem Relation Age of Onset - Breast Cancer Mother 40 - Arthritis Mother Rheumatoid - Breast Cancer Maternal Grandmother - Cancer Maternal Grandfather lung Social History Tobacco Use - Smoking status: Former Smoker Packs/day: 1.00 Years: 25.00 Pack years: 25.00 Types: Cigarettes Quit date: 05/22/2016 Years since quittin.5 - Smokeless tobacco: Former User Quit date: 05/22/2016 - Tobacco comment: started at age 8. less then that now. Vaping Use - Vaping Use: Former Substance Use Topics - Alcohol use: No Comment: has not had drink since 01/06 - Drug use: No Comment: large caffeine REVIEW OF SYSTEMS GENERAL: Negative for Malaise, significant weight loss, fever RESPIRATORY: Negative for cough, wheezing and shortness of breath CARDIOVASCULAR: Negative for chest pain, leg swelling and palpitations GI: Negative for abdominal discomfort, blood in stools or black stools and change in bowel habits : Negative for dysuria, frequency and incontinence MUSCULOSKELETAL: Negative for joint pain or swelling, back pain, and muscle pain. SKIN: Negative for lesions, rash, and itching. HEMATOLOGY/LYMPHOLOGY Negative for prolonged bleeding, bruising easily, and swollen nodes. ENDOCRINE: Negative for cold or heat intolerance, polyuria, polydipsia and goiter. NEURO: negative Physical Exam: Constitutional: Pt is a well developed 40 year old female who is alert, oriented and cooperative Eyes: Following during examination. No redness or drainage. Respiratory: RR normal and nonlabored. Even breathing. No evidence of distress or shortness of breath. Psychology: Patient is engaged during conversation. Normal affect and mood. Does not appear depressed (more content not included)... [facility] 12-06-2020 Note HNO ID: [id number] Author: Marzena Mack Ma Service: ? Author Type: ? Type: Progress Notes Filed: 12/06/2020 12:45 PM Note Text: AMB ROOMING INTAKE FLOWSHEET DATA Pain Pain Level: 4 (4-9/10) Pain Location: Foot-Right Description: Stabbing, Sharp Frequency: Continuous Intervention/Comfort measure: Relaxation Patient presents with: Right Foot - Established Patient, Pain [facility] 12-06-2020 Note HNO ID: [id number] Author: RT Quinn(R) Service: ? Author Type: Brick Baker Type: Progress Notes Filed: 12/06/2020 11:08 AM Note Text: Radiology Service Progress Note PATIENT NAME: Lolly Velez DATE OF SERVICE: December 06, 2020 TIME: 11:00 AM PATIENT IDENTITY VERIFICATION COMPLETED USING TWO (2) IDENTIFIERS: Name and Date of confirmed by patient verbally. FALL SCREENING: Has the patient had 2 falls in the last year or 1 fall with injury or currently using an Ambulatory Assistive Device (Walker, Cane, Wheelchair, Crutches, etc.)? No PATIENT GENDER DATA: Female. status: : No status: NO. PATIENT RELEVANT IMPLANT DATA REVIEWED: Not Applicable RADIOLOGY DEPARTMENT: General X-ray: Exam(s) Completed: Lower Extremity X-Ray(s): Foot, Right and Wt. Bearing PERIPHERAL IV DATA: Not applicable SIGNED BY: RT Quinn(R) December 06, 2020 11:00 AM [facility] 09-22-2020 Note HNO ID: [id number] Author: Matty Akbar MD Service: ? Author Type: Physician Type: Progress Notes Filed: 09/22/2020 12:49 PM Note Text: Patient presents with: Wrist Pain: left, fell this am HPI: Fell while holding her daughter this morning walking downstairs. Her left wrist bent/flexed when she landed. She has pain on the medial side of the wrist. There is some numb-like feeling starting in the fourth and fifth fingers. Primary concern is for popping that is uncomfortable when she moves her wrist around. She has taken Tylenol. MEDICATIONS: DUPILUMAB SUBCUTANEOUS Inject subcutaneously. ondansetron orally disintegrating (ZOFRAN ODT) 4 mg disintegrating tablet Take 1 tablet by mouth every 8 hours as needed. albuterol (PROVENTIL) 2.5 mg /3 mL (0.083 %) nebulizer solution Use 3 mL via nebulizer every 4 hours as needed for Wheezing/Shortness of Breath. Use over 5-15minutes. SUMAtriptan (IMITREX) 100 mg tablet Take 100 mg by mouth as needed. hydrOXYzine HCl (ATARAX) 25 mg tablet ONE TABLET BY MOUTH FOUR TIMES DAILY NEEDED FOR ITCHING/ALLERGIES ibuprofen (MOTRIN) 800 mg tablet Take 800 mg by mouth every 6 hours as needed. acetaminophen (TYLENOL) 325 mg tablet Take 500 mg by mouth every 6 hours as needed. medroxyPROGESTERone (PROVERA) 10 mg tablet Take 1 tablet by mouth once daily. 10 days a month as needed to start menses ALLERGIES: ALLERGIES Allergen Reactions - Ferrous Sulfate Swelling Facial and throat swelling - Amoxicillin - Calamine - Coconut, Coconut Oil - [place] - Erythromycin - Latex Condom [Other] - Onion - Penicillins - Red Dye Rash, Shortness of Breath - Strattera [Atomoxet* Rash - Tobramycin VITALS: BP 122/72 Pulse 84 Temp 36.5 ?C (97.7 ?F) (Tympanic) Resp 16 Wt 105.2 kg (232 lb) LMP 04/04/2020 (Within Weeks) SpO2 96% BMI 36.89 kg/m? PE: Pleasant, in no acute distress. WRIST: Left. Pain with flexion, extension, radial, and ulnar deviation. Rotating her wrist produces a pop which she finds disconcerting and painful. Nonpainful hand flexion to a fist. Nontender phalanges and metacarpals. Tender distal ulna. Normal distal sensation with capillary refill less than 2 seconds. Skin: Scattered pinhead papular and erythematous rash (diagnosed as stress-induced eczema by dermatology per patient) ASSESSMENT/PLAN: 1. Acute pain of left wrist - ICD9: 719.43, ICD10: M25.532 - XR WRIST INJURY 4V PA/LAT/OBL/SCAPH LT - no fracture. Wrist sprain. Placed in cockup splint for comfort. Rest, ice, and [id number] analgesia. Follow-up with orthopedics if not showing signs of improvement after next week. Matty Akbar MD [facility] 09-22-2020 Note HNO ID: [id number] Author: RT Jordan(R) Service: Radiology Author Type: Brick Baker Type: Progress Notes Filed: 09/22/2020 12:21 PM Note Text: Radiology Service Progress Note PATIENT NAME: Lolly Velez DATE OF SERVICE: September 22, 2020 TIME: 12:21 PM PATIENT IDENTITY VERIFICATION COMPLETED USING TWO (2) IDENTIFIERS: Name and Date of confirmed by patient verbally. FALL SCREENING: Has the patient had 2 falls in the last year or 1 fall with injury or currently using an Ambulatory Assistive Device (Walker, Cane, Wheelchair, Crutches, etc.)? No PATIENT GENDER DATA: Female. status: : No status: NO. PATIENT RELEVANT IMPLANT DATA REVIEWED: Not Applicable RADIOLOGY DEPARTMENT: General X-ray: Exam(s) Completed: Upper Extremity X-Ray(s): Wrist, left PERIPHERAL IV DATA: Not applicable SIGNED BY: RT Jordan(R) September 22, 2020 12:21 PM [facility] 09-05-2020 Note HNO ID: [id number] Author: Chanell Mcdonald MD Service: ? Author Type: ? Type: Progress Notes Filed: 09/05/2020 12:04 PM Note Text: Lolly Velez is a 39 year old female who presents with the complaint of sharp pelvic pain for 2 months. Pain is Right. and radiates across. Took ibuprofen and was ok then it got worse to the point beginning of August went to ED for r/o appy. Has been working 60 hrs and then would go home and soak in the tub b/c was so sore.Not better or worse w/ PO intake or BM or urination.No change in sexual partners, denies abnormal vaginal discharge, itching or burning Currently having any pain? Yes LOCATION: across lower pelvis PAIN SCALE: 6 on a scale of 0-10 PAIN CHARACTER: stabbing DURATION: (How long have you had the pain?) 2 months AGGRAVATING FACTORS: worse in the am, then when moves it isn't as bad until evening when stops moving it is worse ALLEVIATING FACTORS: warm bath MEDICATIONS: ibuprofen Postmenopausal? No. Menstrual cycle very irregular days Flow 7-14 days. STates she only has a couple of menses a year. Heavy bleeding? Yes History of fibroids? No Concern for exposure to STDs? No Symptoms suggestive of Irritable Bowel Syndrome? No Dysuria, urinary frequency or urgency? No Contraception: tubal sterilization PAST MEDICAL HISTORY Diagnosis Date - #[id number] dangelo - Abnormal Pap smear of cervix +HPV - Anemia - Arthritis knees - Asthma - Bipolar I disorder, most recent episode (or current) unspecified - Chlamydia age 22 - Cholestasis of 12/04/2016 - Chronic right SI joint pain - Eczema - Mild pre-eclampsia in third trimester 12/15/2016 - PTSD (post-traumatic stress disorder) - Seizure (HCC) fever induced PAST SURGICAL HISTORY Procedure Laterality Date - DELIVERY ONLY 12/25/2017 c/s low transverse - DANDC (INCOMPLETE AB), ANY TRIMESTER - EXPLORATORY OF ABDOMEN 2012 dysmenhorrea - normal laparoscopy FAMILY HISTORY Problem Relation Age of Onset - Breast Cancer Mother 40 - Arthritis Mother Rheumatoid - Breast Cancer Maternal Grandmother - Cancer Maternal Grandfather lung Social History Tobacco Use - Smoking status: Former Smoker Packs/day: 1.00 Years: 25.00 Pack years: 25.00 Types: Cigarettes Quit date: 05/22/2016 Years since quittin.2 - Smokeless tobacco: Former User Quit date: 05/22/2016 - Tobacco comment: started at age 8. less then that now. Vaping Use - Vaping Use: Former Substance Use Topics - Alcohol use: No Comment: has not had drink since 01/06 - Drug use: No Comment: large caffeine LMP 05/09/2019 GENERAL: pleasant, female in no apparent distress ABDOMEN: soft, no hernia, no masses, Moderate tenderness in suprapubic area, rebound Present, mild voluntary guarding present and pannus moderate PELVIC: external genitalia normal, normal Bartholin's glands, urethra, [place]'s glands, no vulvar lesions, no cervical lesions, good vaginal support, physiologic discharge present, normal appearing perineal body and perianal region BIMANUAL: anteverted, no adnexal masses and tender, normal size, mobile, no adenexal masses or tenderness, no tenderness over levators ASSESSMENT/PLAN: acute pelvic pain x 2 months. Reviewed previous ED report, labs and CT. Check pelvic US. Treat empirically for chronic endometritis. Treat w/ doxy. Irreg menses- provera challenge f/u for annual. Likely adenomyosis as well. Discuss after doxy complete and reeval. Chanell Mcdonald MD Medical Decision Making: Problems: Moderate: New problem with uncertain prognosis Data: Unique source(s) for external note(s) reviewed: 1 Unique test result(s) reviewed: 1 Unique test(s) ordered: 1 Risk: Moderate: Drug management Medical Decision Making Level: 4 - Moderate [facility] documented as of this encounter (statuses as of 08/26/2021) [facility] Skin infection- Primary Unspecified local infection of skin and subcutaneous tissue documented in this encounter [facility] Summary Purpose Family History No Family History Records FoundNo Family History Records FoundNo Family History Records FoundNo Family History Records FoundNo Family History Records FoundNo Family History Records FoundNo Family History Records Found Advance Directives No Advanced Directives Records FoundDocuments on File Type Date Recorded Patient Online Editor Expl anation Advance Directives and Living Will Power of Mutual Fund Analyst Documents on File Type Date Recorded Patient Online Editor Expl anation Advance Directive(s) 12/13/2016 3:09 PM Reason for Referral Status Reason Specialty Diagnoses / Procedures Referre d By Contact Referred To Contact Closed Radiology Diagnoses Shortness of breath Chronic cough Procedures CT CHEST WO CONTRAST Mulu Thomas MD [address] [place] [address] Assessments Diagnosis Shortness of breath Chronic cough Cough Additional Source Comments INFORMATION SOURCE (unrecogn ized section and content) DATE CREATED AUTHOR AUTHOR'S ORGANIZ ATION 10/28/2017 [facility] DATE CREATED AUTHOR AUTHOR'S ORGANIZ ATION 10/28/2017 [facility] DATE CREATED AUTHOR AUTHOR'S ORGANIZ ATION 10/28/2017 [facility] DATE CREATED AUTHOR AUTHOR'S ORGANIZ ATION 10/28/2017 [facility] ([place]) DATE CREATED AUTHOR AUTHOR'S ORGANIZ ATION 07/15/[address] [facility] DATE CREATED AUTHOR AUTHOR'S ORGANIZ ATION 08/28/2021 [facility] Source Comments (unrecognize d section and content) In the event this informatio n is protected by the Federal Confidentiality of Alcohol and Drug Abuse Patient Records regulations: The Federal rules restrict any use of the information to criminally investigate or prosecute any alcohol or drug abuse patient.[facility] Reason for Visit (unrecogniz ed section and content) Care Teams (unrecognized sec tion and content) FOR RECORDS PERTAINING TO PATIENTS WHO ARE OR HAVE BEEN ENROLLED IN A CHEMICAL DEPENDENCY/SUBSTANCEABUSE PROGRAM, SOME INFORMATION MAY BE OMITTED. This clinical summary was aggregated from multiple sources. Caution should be exercised in using it in the provision of clinical care. This summary normalizes information from multiple sources, and as a consequence, information in this document may materially change the coding, format and clinical context of patient data. In addition, data may be omitted in some cases. CLINICAL DECISIONS SHOULD BE BASED ON THE PRIMARY CLINICAL RECORDS. [employer] [facility]. provides no warranty or guarantee of the accuracy or completeness of information in this document.
== END 2023-06-05 10:55 | disposition home or self-care (01) ==
PROVIDERS: Emergency Provider Emergency Medicine; PCP Nurse Practitioner Family; Visit Provider Emergency Medicine
DX: S93.602A Unspecified sprain of left foot, initial encounter (principal); X58.XXXA Exposure to other specified factors, initial encounter; F17.210 Nicotine dependence, cigarettes, uncomplicated; Z98.51 Tubal ligation status
CPT/HCPCS: 73630; 99283

== ENCOUNTER 2023-12-31 09:28 | Emergency (ER) | payer MEDICARE, MEDICAID, SELFPAY ==
[2023-12-31 09:29] VITALS: BP 124/68; PULSE 95; RESP 14; TEMP 36.6; O2SAT 100
[2023-12-31] MEDS: Famotidine 20 MG Tablet 40 MG PO (10:04)
[2023-12-31] MEDS: MethylPREDNISolone 125 MG/2 ML Vial IV (10:04)
[2023-12-31 10:08] VITALS: BP 125/86; PULSE 72; RESP 18; O2SAT 100
--- NOTE | 2023-12-31 10:09 | EX.ED.DYSGE1 ---
HPI History of Present Illness Chief Complaint: Allergic Reaction Informant: patient and EMS Narrative Narrative: 43-year-old female presenting to the emergency room with anaphylaxis. Patient states she was stung multiple times by wasp. She states that she felt like her tongue was swelling she had vomiting and she developed hives near the injection sites. She went to urgent care where she received a dose of Benadryl intramuscular as well as an EpiPen. Patient states she feels very tired and has dry mouth. She states she has allergic reactions to hornets and yellowjacket's in the past. [facility] Medical History Patellar instability of left knee Left knee pain history of child Incontinence Seizures Asthma Severe headache Anemia Arthritis Home Medications ?Medication ?Instructions ?Recorded ?Last Taken ?Type prazosin 1 mg capsule 1 mg PO QHS 05/09/21 Unknown History escitalopram oxalate 10 mg tablet mg 03/23/22 Unknown History aripiprazole 10 mg tablet (Abilify) 15 mg PO QHS 12/29/22 Unknown History epinephrine 0.3 mg/0.3 mL 0.3 mg (0.3 mL) IM Q10M PRN PRN 12/31/23 Unknown Rx injection, auto-injector anaphylaxis #2 ea loratadine 10 mg tablet 10 mg PO DAILY 12/31/23 Unknown History (Allerclear) prednisone 20 mg tablet 60 mg (3 x 20 mg) PO DAILY #12 12/31/23 Unknown Rx TABLETS Allergy/AdvReac Type Severity Reaction Status Date / Time amoxicillin Allergy Hives Verified 03/24/23 09:29 calamine Allergy Rash Verified 03/24/23 09:29 coconut oil Allergy Rash Verified 03/24/23 09:29 erythromycin base Allergy Hives Verified 03/24/23 09:29 (Erythromycin Base) fentanyl Allergy Other Verified 03/24/23 09:29 ferrous sulfate Allergy Anaphylaxis Verified 03/24/23 09:29 latex Allergy Rash Verified 03/24/23 09:29 Penicillins Allergy Hives Verified 03/24/23 09:29 red (food color) Allergy Anaphylaxis Verified 03/24/23 09:29 tobramycin Allergy Other Verified 03/24/23 09:29 atomoxetine (From Strattera) AdvReac Other Verified 03/24/23 09:29 diphenhydramine HCl (From AdvReac Chest Verified 03/24/23 09:29 Benadryl) tightness Family History Father Alcoholism Mother Mental disorder Other Arthritis CVA (cerebral vascular accident) Cancer Hypertension Myocardial infarction Surgical History H/O right wrist surgery History of tubal ligation H/O section Social History Smoking Status: Current every day smoker tobacco type: cigarettes alcohol intake: never what type of physical activity do you participate in: walking and yoga ROS ROS ED Constitutional Constitutional ED: Denies chills, fever(s) or weight loss Eyes Eyes: Denies change in vision or diplopia ENT ENT ED: Reports other Details: Dry mouth ; Denies ear pain, rhinorrhea or sore throat Cardiovascular Cardiovascular: Denies chest pain, orthopnea, palpitations or racing heartbeat Respiratory/Chest Respiratory/Chest: Denies cough, dyspnea or orthopnea Gastrointestinal Gastrointestinal: Reports nausea and vomiting; Denies abdominal pain or diarrhea Genitourinary Genitourinary ED: Denies dysuria, hematuria or urinary frequency Musculoskeletal Musculoskeletal: Denies arthralgias or myalgias Integumentary Reports other Details: Hives ; Denies abscess or rash Neurologic Neurologic: Denies headache(s) or weakness Psychiatric Psychiatric: Denies anxiety, depression, suicidal ideation or suicidal thoughts Endocrine Endocrinology: Denies polydipsia, polyphagia or polyuria Allergic/Immunologic Allergic/Immunologic ED: Denies mouth swelling, tongue swelling or urticaria EXAM Physical Exam Const Vital Signs: 12/31/23 09:29 12/31/23 10:08 12/31/23 10:39 Temperature 97.9 F 97.9 F Temperature Source Temporal Pulse Rate 95 72 85 Respiratory Rate 14 18 18 Blood Pressure 124/68 H 125/86 H 125/86 H Blood Pressure Mean 86 99 99 Pulse Ox 100 100 97 Oxygen Delivery Method Room Air Room Air 12/31/23 11:09 Temperature Temperature Source Pulse Rate 85 Respiratory Rate 18 Blood Pressure 107/77 Blood Pressure Mean 87 Pulse Ox 98 Oxygen Delivery Method Positive well nourished, well developed and obese General Appearance ED: well developed Nutritional Appearance: obese HEENT Reports normocephalic, head/scalp atraumatic and moist mucous membranes Eyes PERRL and EOMs intact bilaterally Neck no lymphadenopathy, supple and no JVD Resp normal respiratory effort and clear to auscultation bilaterally Cardio regular rate, regular rhythm and no murmurs GI normal to inspection, nondistended, normoactive bowel sounds and non-tender Palpation: soft Back/Spine no CVA tenderness and normal ROM Extremity normal to inspection General Extremety ED: Negative for edema General Extremity: Negative for edema Neuro oriented x3 and CN's II-XII intact bilaterally Sensorium / Orientation: alert Motor Exam: strength 5/5 throughout Psych mental status grossly normal Mood & Affect: Negative for depressed or tearful Skin Skin Narrative: Patient has urticarial rash on posterior upper right arm right ankle posterior right thigh. She states these are the known points where she was injected. MDM MDM MDM Narrative Medical decision making narrative: Differential diagnosis includes anaphylaxis angioedema obesity Patient had already received Benadryl and epinephrine. We also administered Solu-Medrol and Pepcid. She was observed for several hours here in the emergency department continue to do well. I will write for her to have prednisone and can continue the Benadryl at home. Would also recommend an EpiPen prescription which I gave her. Return if worsening or concerns History & Record Review Discussion w/independent historian: Patient Discharge Plan Triage Chief Complaint: Allergic Reaction ED Provider: Adair Silverio Dx/Rx/DC Orders Clinical Impression: Anaphylaxis Instructions: ED Anaphylaxis Prescriptions: New prednisone 20 mg tablet 60 mg PO DAILY Qty: 12 0RF epinephrine 0.3 mg/0.3 mL auto-injector 0.3 mg IM Q10M PRN PRN (Reason: anaphylaxis) Qty: 2 0RF Rx Instructions: for 2 doses No Action prazosin 1 mg Capsule 1 mg PO QHS aripiprazole [Abilify] 10 mg tablet 15 mg PO QHS escitalopram oxalate 10 mg tablet loratadine [Allerclear] 10 mg tablet 10 mg PO DAILY Primary Care Provider: Deedee Valero Referrals: Deedee Valero, [facility] [Primary Care Provider] - As Needed Activity Restrictions/Additional Instructions: I would recommend taking a Benadryl 25 mg tablet every 6 hours today. I have prescribed you EpiPen's in case she develop an anaphylactic reaction again Print Language: [place] Verdean Disposition Disposition: Home, Self Care Discharge Date/Time: 12/31/23 11:55
[2023-12-31 10:39] VITALS: BP 125/86; PULSE 85; RESP 18; TEMP 36.6; O2SAT 97
[2023-12-31 11:09] VITALS: BP 107/77; PULSE 85; RESP 18; O2SAT 98
== END 2023-12-31 11:55 | disposition home or self-care (01) ==
PROVIDERS: Emergency Provider Emergency Medicine; PCP Nurse Practitioner Family; Visit Provider Emergency Medicine
DX: T88.6XXA Anaphylactic reaction due to adverse effect of correct drug or medicament properly administered, initial encounter (principal); T50.Z95A Adverse effect of other vaccines and biological substances, initial encounter; Z98.51 Tubal ligation status; F17.210 Nicotine dependence, cigarettes, uncomplicated
CPT/HCPCS: 96361; 96374; 96375; 99283; A4216

== ENCOUNTER → 2024-02-16 | Outpatient (CLI) | payer MEDICARE, MEDICAID, SELFPAY ==
[2024-02-16 15:30] LABS: Absolute Neutrophil Count 7.5 X10^3/uL (2.0-7.7); Basophil# 0.06 X10^3/uL; Basophil% 0.5 % (0-1); Eosinophil# 0.22 X10^3/uL; Eosinophils% 1.8 % (0-5); Hematocrit 42.4 % (37-47); Hemoglobin 13.9 g/dL (12.0-15.0); Lymphocyte % 29.1 % (19-41); Mean Corp Hgb Conc 32.8 g/dL (32-36); Mean Corpuscular Hgb 30.3 pg (27.0-32.0); Mean Corpuscular Volume 92.4 fL (81-99); Mean Platelet Vol. 11.2 fl (6.2-12.0); Monocyte# 0.94 X10^3/uL; Monocyte% 7.6 % (0-10); NRBC Flagged by Analyzer 0 % (0-5); Neutrophil # 7.52 X10^3/uL (2.7-7.7); Neutrophil % 60.6 % (47-70); Platelet Count 318 K/mm3 (150-450); RBC Distribution Width SD 44.1 fl (35.1-43.9); Red Blood Count 4.59 M/mm3 (4.2-5.4); White Blood Count 12.4 K/mm3 (4.4-11.0)
[2024-02-16 15:59] LABS: ALB/GLOB Ratio 0.9 RATIO (0.9-2.4); AST(SGOT) 21 U/L (15-37); Alanine Aminotransfer ALT/SGPT 29 U/L (13-56); Albumin, Serum 3.7 g/dL (3.2-5.0); Alkaline Phosphatase 88 U/L (45-117); Anion Gap 5 (5-15); BUN 8 mg/dL (7-18); BUN/Creat Ratio 9.4 RATIO (10-20); Calcium,Total 9.6 mg/dL (8.5-10.1); Chloride 105 mmol/L (98-107); Creatinine, Serum 0.86 mg/dL (0.55-1.02); EST Glomerular Filtration Rate 78 mL/min (>60); Est Glom Filt Rate - Afr Amer 94 mL/min (>60); Globulin 4.1 g/dL (2.2-4.2); Glucose 83 mg/dL (74-106); Protein, Total 7.8 g/dL (6.4-8.2); Sodium Level 136 mmol/L (136-145)
[2024-02-16 16:10] LABS: Internal QC Validated? YES +Cl - CLEAR BKGD; Monotest Negative (Negative)
[2024-02-16 16:11] LABS: Record Kit Lot#, Mono 13241033
== END | disposition home or self-care (01) ==
PROVIDERS: PCP Nurse Practitioner Family; Referring Provider Nurse Practitioner Family; Visit Provider Nurse Practitioner Family
DX: R53.83 Other fatigue (principal); J02.9 Acute pharyngitis, unspecified
CPT/HCPCS: 36415; 80053; 85025; 86308

== ENCOUNTER 2024-07-02 17:12 | Emergency (ER) | payer MEDICARE, MEDICAID, SELFPAY ==
[2024-07-02 17:12] VITALS: BP 131/83; PULSE 137; PULSE 141; RESP 26; TEMP 39.4; O2SAT 95
[2024-07-02] MEDS: Ketorolac 15 MG/ML Vial IV (17:30)
[2024-07-02] MEDS: Ondansetron 4 MG/2 ML Vial IV (17:30)
[2024-07-02] MEDS: 0.9% Normal Saline (1000mL) 1,000 ML 999 ML IV ×2 (17:30→18:36)
--- NOTE | 2024-07-02 17:37 | EX.ED.DYSGE1 ---
HPI <REGINA Francisco - Last Filed: 07/02/24 20:21> History of Present Illness Chief Complaint: Nausea/Vomiting/Diarrhea Narrative Narrative: Patient is a 43-year-old female with history of back pain, anxiety, ADHD, asthma who presents to the emerged Apt. 4 days of generalized illness. Pay started with a cough, developed fever and chills and today had some nausea and vomiting. Patient is on steroids. Patient that she did do some breathing treatments today. Patient states the fever is out of control, she did take some Tylenol however she thinks she might of vomited. Patient states that she does have a neighbor that she talks to that is positive for the influenza. Here for evaluation. [facility] <REGINA Francisco - Last Filed: 07/02/24 20:21> [facility] Medical History Patellar instability of left knee Left knee pain history of child Incontinence Seizures Asthma Severe headache Anemia Arthritis Home Medications ?Medication ?Instructions ?Recorded ?Last Taken ?Type prazosin 1 mg capsule 1 mg PO QHS 05/09/21 Unknown History escitalopram oxalate 10 mg tablet mg 03/23/22 Unknown History aripiprazole 10 mg tablet (Abilify) 15 mg PO QHS 12/29/22 Unknown History epinephrine 0.3 mg/0.3 mL 0.3 mg (0.3 mL) IM Q10M PRN PRN 12/31/23 Unknown Rx injection, auto-injector anaphylaxis #2 ea loratadine 10 mg tablet 10 mg PO DAILY 12/31/23 Unknown History (Allerclear) prednisone 20 mg tablet 60 mg (3 x 20 mg) PO DAILY #12 12/31/23 Unknown Rx TABLETS meloxicam 15 mg tablet 15 mg PO QDAY PRN pain #30 tabs 01/21/24 Unknown Rx ondansetron 4 mg disintegrating 4 mg PO Q8H PRN PRN Nausea #10 tabs 07/02/24 Unknown Rx tablet Allergy/AdvReac Type Severity Reaction Status Date / Time amoxicillin Allergy Hives Verified 07/02/24 17:13 calamine Allergy Rash Verified 07/02/24 17:13 coconut oil Allergy Rash Verified 07/02/24 17:13 erythromycin base Allergy Hives Verified 07/02/24 17:13 (Erythromycin Base) fentanyl Allergy Other Verified 07/02/24 17:13 ferrous sulfate Allergy Anaphylaxis Verified 07/02/24 17:13 latex Allergy Rash Verified 07/02/24 17:13 Penicillins Allergy Hives Verified 07/02/24 17:13 red (food color) Allergy Anaphylaxis Verified 07/02/24 17:13 tobramycin Allergy Other Verified 07/02/24 17:13 atomoxetine (From Strattera) AdvReac Other Verified 07/02/24 17:13 diphenhydramine HCl (From AdvReac Chest Verified 07/02/24 17:13 Benadryl) tightness Family History Father Alcoholism Mother Mental disorder Other Arthritis CVA (cerebral vascular accident) Cancer Hypertension Myocardial infarction Surgical History H/O right wrist surgery History of tubal ligation H/O section Social History Smoking Status: Current every day smoker tobacco type: cigarettes alcohol intake: never what type of physical activity do you participate in: walking and yoga ROS <REGINA Francisco - Last Filed: 07/02/24 20:21> ROS ED ROS Narrative Constitutional: Negative for weight loss. Positive fever, chills, weakness Eyes: Negative for vision loss, vision change, double vision ENT: Negative for any sore throat, ear pain, congestion Cardiovascular: Negative for any chest pain, tightness, palpitations Respiratory: Negative for any sputum production, hemoptysis, dyspnea on exertion, orthopnea. Positive cough, dyspnea Gastrointestinal: Negative for any abdominal pain, diarrhea, constipation, blood in stool, blood in vomit. Positive nausea and vomiting : Negative for any urinary frequency, dysuria, retention, blood in urine Muscle skeletal: Negative for any neck pain, back pain. Positive for myalgias Neurological: Negative for any headache, syncope, dizziness Skin: Negative for any rashes, itching, abrasions, lacerations Psychiatric: Negative for any depression, anxiety, stress, suicidal ideation, homicidal ideation Hematologic: Negative for any excessive bruising, easy bleeding EXAM <REGINA Francisco - Last Filed: 07/02/24 20:21> Physical Exam Narrative Exam Narrative: Vital signs reviewed. Patient is febrile here, tachycardic. HEET: Head normocephalic atraumatic, TMs clear bilaterally. Posterior pharynx is clear, moist mucous membranes. Nares clear bilaterally. Neck: Supple with no lymphadenopathy or tenderness. No signs of meningismus. Cardiac: Tachycardic rate no murmurs gallops or rubs, equal peripheral pulses bilaterally. Respiratory: Slight expiratory wheeze to the left lower base. Remainder was clear. No chest tenderness. Abdomen: Soft, nontender, nondistended. No abdominal bruit or pulsatile masses. No hepatosplenomegaly Extremities: No peripheral edema, no signs of gross trauma or deformity. Active full range of motion of all extremities. Neuro: Cranial nerves II through XII intact, no focal neurological deficits. Skin: Clean dry and intact with no rash, purpura, petechiae, vesicles or pustules. Patient's warm to the touch Backs/flank: No CVA tenderness, no midline spinal tenderness, no deformity. Psych: Normal mood and affect. No SI, HI or acute psychosis. Const Vital Signs: 07/02/24 17:12 07/02/24 17:12 07/02/24 18:37 Temperature 102.9 F H 99.7 F H Temperature Source Oral Oral Pulse Rate 137 H 141 H 117 H Respiratory Rate 26 H 18 Blood Pressure 131/83 H 110/65 Blood Pressure Mean 99 80 Pulse Ox 95 93 Oxygen Delivery Method Room Air Room Air <Dr. Janiya Rome DO - Last Filed: 07/05/24 06:56> Physical Exam Const Vital Signs: 07/02/24 17:12 07/02/24 17:12 07/02/24 18:37 Temperature 102.9 F H 99.7 F H Temperature Source Oral Oral Pulse Rate 137 H 141 H 117 H Respiratory Rate 26 H 18 Blood Pressure 131/83 H 110/65 Blood Pressure Mean 99 80 Pulse Ox 95 93 Oxygen Delivery Method Room Air Room Air MDM <REGINA Francisco - Last Filed: 07/02/24 20:21> MDM Lab Data Labs: Laboratory Results - last 24 hr 07/02/24 07/02/24 17:24 18:54 WBC 9.6 RBC 4.34 Hgb 13.2 Hct 39.1 MCV 90.1 MCH 30.4 MCHC 33.8 RDW Std Deviation 42.7 RDW Coeff of [place] 12.9 Plt Count 265 MPV 10.9 Immature Gran % (Auto) 0.300 Neut % (Auto) 80.6 H Lymph % (Auto) 5.[address] [place] % (Auto) 13.2 H Eos % (Auto) 0.3 Baso % (Auto) 0.3 Absolute Neuts (auto) 7.8 H Absolute Lymphs (auto) 0.51 L Nucleated RBC % 0 Sodium 137 Potassium 3.6 Chloride Direct 101 Carbon Dioxide 20.8 L Anion Gap 15 BUN 10 Creatinine 0.79 Est GFR (MDRD) Non-Af 96 BUN/Creatinine Ratio 12.9 Glucose 120 H Calcium 9.4 Total Bilirubin 0.18 AST 18 ALT 14 Alkaline Phosphatase 81 Troponin T High Sens < 6 Total Protein 7.2 Albumin 4.1 Globulin 3.2 Albumin/Globulin Ratio 1.3 Lipase 19 Urine Color Yellow Urine Clarity Sl. Cloudy Urine pH 6.0 Ur Specific [place] 1.015 Urine Protein 30 H Urine Glucose (UA) Normal Urine Ketones Negative Urine Occult Blood 25 H Urine Nitrite Negative Urine Bilirubin Negative Urine Urobilinogen Normal Ur Leukocyte Esterase 500 H Urine RBC 0-5 SEEN Urine WBC 10-25 SEEN Ur Squamous Epith Cells 0-5 SEEN Amorphous Sediment 1+ URATE Urine Bacteria 0 SEEN Urine Mucus 0 SEEN Urine Test Negative Radiography Diagnostic Testing: Clinical Impression(s) from Imaging Studies Chest X-Ray 07/02/24 17:40 IMPRESSION: Bronchial thickening. No localizing infiltrate. Reading Location: [facility] EKG EKG shows sinus tachycardia: Comments: Sinus tachycardia, rate of 129 bpm, NC 140 ms, QRS duration 76 ms, no acute ST elevation, no acute infarct noted. Treatment and Re-Evaluation :: Differential diagnosis includes however is not limited to: Influenza, COVID-19, RSV, community-acquired pneumonia, sepsis, PE, viral gastroenteritis Patient is tachycardic, elevated fever, presenting to the emergency department for cough, body aches, nausea and vomiting. Upon my initial evaluation, patient received 2 L of normal saline, basic laboratory values, EKG and troponin. Patient will receive Zofran, Toradol. COVID-19 influenza RSV swab will be completed. Two-view chest x-ray be obtained. All radiologic examinations were read, reviewed by the emergency department attending. From these reads, a plan of care will be put in place. On reevaluation, the patient was improving. CBC was unremarkable, chemistries was unremarkable. Patient heart rate has decreased to 117, temperature is now 99.7. Chest x-ray showed no acute infiltrate, bronchial thickening. Patient was positive for influenza A. At this time, patient passed p.o. challenge. Patient was ambulatory to the bathroom. Patient be given a prescription for Zofran, will continue take ibuprofen and Tylenol. She is happy with the plan of care, struck to return for any worsening symptoms. <Dr. Janiya Rome, DO - Last Filed: 07/05/24 06:56> [facility] Lab Data Attestation: I reviewed the patient's lab results. Labs: Laboratory Results - last 24 hr 07/02/24 07/02/24 17:24 18:54 WBC 9.6 RBC 4.34 Hgb 13.2 Hct 39.1 MCV 90.1 MCH 30.4 MCHC 33.8 RDW Std Deviation 42.7 RDW Coeff of [place] 12.9 Plt Count 265 MPV 10.9 Immature Gran % (Auto) 0.300 Neut % (Auto) 80.6 H Lymph % (Auto) 5.[address] [place] % (Auto) 13.2 H Eos % (Auto) 0.3 Baso % (Auto) 0.3 Absolute Neuts (auto) 7.8 H Absolute Lymphs (auto) 0.51 L Nucleated RBC % 0 Sodium 137 Potassium 3.6 Chloride Direct 101 Carbon Dioxide 20.8 L Anion Gap 15 BUN 10 Creatinine 0.79 Est GFR (MDRD) Non-Af 96 BUN/Creatinine Ratio 12.9 Glucose 120 H Calcium 9.4 Total Bilirubin 0.18 AST 18 ALT 14 Alkaline Phosphatase 81 Troponin T High Sens < 6 Total Protein 7.2 Albumin 4.1 Globulin 3.2 Albumin/Globulin Ratio 1.3 Lipase 19 Urine Color Yellow Urine Clarity Sl. Cloudy Urine pH 6.0 Ur Specific [place] 1.015 Urine Protein 30 H Urine Glucose (UA) Normal Urine Ketones Negative Urine Occult Blood 25 H Urine Nitrite Negative Urine Bilirubin Negative Urine Urobilinogen Normal Ur Leukocyte Esterase 500 H Urine RBC 0-5 SEEN Urine WBC 10-25 SEEN Ur Squamous Epith Cells 0-5 SEEN Amorphous Sediment 1+ URATE Urine Bacteria 0 SEEN Urine Mucus 0 SEEN Urine Test Negative Radiography Diagnostic Testing: Clinical Impression(s) from Imaging Studies Chest X-Ray 07/02/24 17:40 IMPRESSION: Bronchial thickening. No localizing infiltrate. Reading Location: [facility] Treatment and Re-Evaluation :: Differential diagnosis includes however is not limited to: Influenza, COVID-19, RSV, community-acquired pneumonia, sepsis, PE, viral gastroenteritis Patient is tachycardic, elevated fever, presenting to the emergency department for cough, body aches, nausea and vomiting. Upon my initial evaluation, patient received 2 L of normal saline, basic laboratory values, EKG and troponin. Patient will receive Zofran, Toradol. COVID-19 influenza RSV swab will be completed. Two-view chest x-ray be obtained. All radiologic examinations were read, reviewed by the emergency department attending. From these reads, a plan of care will be put in place. On reevaluation, the patient was improving. CBC was unremarkable, chemistries was unremarkable. Patient heart rate has decreased to 117, temperature is now 99.7. Chest x-ray showed no acute infiltrate, bronchial thickening. Patient was positive for influenza A. At this time, patient passed p.o. challenge. Patient was ambulatory to the bathroom. Patient be given a prescription for Zofran, will continue take ibuprofen and Tylenol. She is happy with the plan of care, struck to return for any worsening symptoms. I have personally performed a face to face assessment of the patient and have reviewed the ZHANG Note. I performed a substantive portion of the visit including all aspects of the following. My tobin findings include: History is patient is a 43-year-old female with history of asthma and anxiety presenting with flulike symptoms, nausea, vomiting, diarrhea and concern for dehydration. Patient states she has to regular breathing treatments at baseline because of her asthma. She feels that her breathing has been worsening as well. She is currently on steroids. She is on day 4 of symptoms. On evaluation patient appears nontoxic but does look like she does not feel well. She is tachycardic. She is dry mucosal membranes. She has some mild end expiratory wheezing present. Abdomen soft and nontender. No peripheral edema present. Patient is tachycardic upon arrival. She is febrile and tachypneic. Is given 2 L of IV fluid.CBC normal. BMP shows a borderline low bicarb consistent with dehydration. Lab work otherwise largely normal. Urinalysis does show 10-25 white blood cells with 500 leukocyte esterase however no bacteria seen. Will send urine out for culture but patient denies any urinary symptoms. She does test positive for influenza. Is consistent with her presentation.High sensitive troponin ordered which is normal. Low suspicion for viral pericarditis/myocarditis. Patient feels improved after DuoNeb and IV fluids. Patient is feeling better and would like to be discharged home. She states she has to take care of her children. Is given return precautions. Counseled that if she has any worsening of her respiratory symptoms she should return to the emergency room immediately. She verbalizes given understand this. Other additions or changes: [None] Discharge Plan Triage Chief Complaint: Nausea/Vomiting/Diarrhea ED Midlevel Provider: Arian Adams ED Provider: Janiya Rome Dx/Rx/DC Orders Clinical Impression: Influenza A, Acute dehydration Instructions: ED Dehydration (Adult), ED Influenza (Adult) Prescriptions: New ondansetron 4 mg tablet,disintegrating 4 mg PO Q8H PRN PRN (Reason: Nausea) Qty: 10 0RF No Action meloxicam 15 mg tablet 15 mg PO QDAY PRN (Reason: pain) Qty: 30 0RF prazosin 1 mg Capsule 1 mg PO QHS aripiprazole [Abilify] 10 mg tablet 15 mg PO QHS escitalopram oxalate 10 mg tablet loratadine [Allerclear] 10 mg tablet 10 mg PO DAILY prednisone 20 mg tablet 60 mg PO DAILY Qty: 12 0RF epinephrine 0.3 mg/0.3 mL auto-injector 0.3 mg IM Q10M PRN PRN (Reason: anaphylaxis) Qty: 2 0RF Rx Instructions: for 2 doses Primary Care Provider: Deedee Valero Referrals: Deedee Valero, LEWIS-C [Primary Care Provider] - Activity Restrictions/Additional Instructions: You have influenza, I believe that most of your symptoms today are secondary to your fever. You need to take Tylenol 1000 mg every 8 hours, as well as ibuprofen 600 mg every 8 hours. Print Language: Greek Disposition Disposition: Home, Self Care Discharge Date/Time: 07/02/24 20:31
--- NOTE | 2024-07-02 17:40 | RAD_ITS ---
PROCEDURE: CHEST PA AND LATERAL REASON FOR EXAM: Cough TECHNIQUE: Frontal and lateral views of the chest. COMPARISON: 01/21/2021 FINDINGS: The cardiothymic contour is normal. Bronchial thickening. No localizing infiltrate, effusion or infection The bones are unremarkable. RAD/Chest PA and Lateral IMPRESSION: Bronchial thickening. No localizing infiltrate. Reading Location: [id number]
[2024-07-02 17:41] LABS: Absolute Lymphocyte Count 0.51 X10^3/uL (0.83-4.51); Absolute Neutrophil Count 7.8 X10^3/uL (2.0-7.7); Basophil# 0.03 X10^3/uL; Basophil% 0.3 % (0-1); Eosinophil# 0.03 X10^3/uL; Eosinophils% 0.3 % (0-5); Hematocrit 39.1 % (37-47); Hemoglobin 13.2 g/dL (12.0-15.0); Lymphocyte # 0.51 X10^3/ul (0.83-4.51); Lymphocyte % 5.3 % (19-41); Mean Corp Hgb Conc 33.8 g/dL (32-36); Mean Corpuscular Hgb 30.4 pg (27.0-32.0); Mean Corpuscular Volume 90.1 fL (81-99); Mean Platelet Vol. 10.9 fl (6.2-12.0); Monocyte# 1.27 X10^3/uL; Monocyte% 13.2 % (0-10); NRBC Flagged by Analyzer 0 % (0-5); Neutrophil # 7.77 X10^3/uL (2.7-7.7); Neutrophil % 80.6 % (47-70); POSITIVE DIFFERENTIAL YES; Platelet Count 265 K/mm3 (150-450); RBC Distribution Width CV 12.9 % (11.6-14.6); RBC Distribution Width SD 42.7 fl (35.1-43.9); Red Blood Count 4.34 M/mm3 (4.2-5.4); White Blood Count 9.6 K/mm3 (4.4-11.0)
--- NOTE | 2024-07-02 17:44 | EKG12_ITS ---
Test Reason : general Blood Pressure : */* mmHG Vent. Rate : 129 BPM Atrial Rate : 129 BPM P-R Int : 140 ms QRS Dur : 76 ms QT Int : 314 ms P-R-T Axes : 44 -2 41 degrees QTcB Int : 460 ms Sinus tachycardia Otherwise normal ECG Confirmed by Neville Avilez ([id number]), research editor VICTOR MANUEL SCOTT ([id number]) on 07/04/2024 7:05:24 AM Referred By: Confirmed By: Neville Avilez
[2024-07-02 18:03] LABS: ALB/GLOB Ratio 1.3 RATIO (0.9-2.4); AST(SGOT) 18 U/L (<=31); Alanine Aminotransfer ALT/SGPT 14 U/L (<=34); Albumin, Serum 4.1 g/dL (3.5-5.0); Alkaline Phosphatase 81 U/L (35-104); Anion Gap 15 (5-15); BUN 10 mg/dL (4-19); BUN/Creat Ratio 12.9 RATIO (10-20); Calcium 9.4 mg/dL (7.6-11.0); Carbon Dioxide 20.8 mmol/L (22.0-29.0); Chloride 101 mmol/L (96-108); Creatinine, Serum 0.79 mg/dL (0.70-1.20); EST Glomerular Filtration Rate 96 (>60); Globulin 3.2 g/dL (2.2-4.2); Glucose 120 mg/dL (70-99); Lipase 19 U/L (13-75); Potassium 3.6 mmol/L (3.3-5.1); Protein, Total 7.2 g/dL (5.9-8.4); Sodium Level 137 mmol/L (133-145); Total Bilirubin 0.18 mg/dL (0.00-1.30)
[2024-07-02 18:25] LABS: Troponin T High Sensitivity < 6 ng/L (<=14)
[2024-07-02 18:37] VITALS: BP 110/65; PULSE 117; RESP 18; TEMP 37.6; O2SAT 93
[2024-07-02 18:38] VITALS: BMI 41.1
[2024-07-02] MEDS: Acetaminophen 500 MG Tablet 1000 MG PO (18:49)
[2024-07-02 18:58] LABS: Bacteria 0 SEEN /hpf (None Seen); Mucous, Urine 0 SEEN /hpf (<or=2+)
[2024-07-02 19:07] LABS: Color, Urine Yellow (Yellow); Glucose, Dipstick Normal (Normal); Ketone-Dipstick Negative (Negative); Leukocyte Esterase-Dipstick 500 /ul (Negative); Nitrite-Dipstick Negative (Negative); Occult Blood-Urine 25 /ul (Negative); Protein-Dipstick 30 mg/dl (Negative); Specific Gravity, Urine 1.015 (1.002-1.030); Urine Bilirubin Dipstick Negative (Negative); Urine Clarity Sl. Cloudy (Clear); Urine Urobilinogen Normal (Normal)
[2024-07-02 19:22] LABS: Amorphous Sediment 1+ URATE; Internal QC Validated? YES +Cl - CLEAR BKGD; Pregnancy, Urine Negative Negative; Red Blood Cells-Urine 0-5 SEEN /hpf (0-5); Squamous Epithelial Cells - UA 0-5 SEEN /hpf (5-10); White Blood Cells 10-25 SEEN /hpf (0-5)
[2024-07-02 20:30] VITALS: BP 110/65; PULSE 101; RESP 18; TEMP 37.2; O2SAT 93
[2024-07-02 23:43] LABS: CPK Total, Creatine Kinase 68 U/L (24-195)
== END 2024-07-02 20:31 | disposition home or self-care (01) ==
PROVIDERS: Nurse Practitioner; Emergency Provider Emergency Medicine; PCP Nurse Practitioner Family; Visit Provider Emergency Medicine
DX: J10.1 Influenza due to other identified influenza virus with other respiratory manifestations (principal); F41.9 Anxiety disorder, unspecified; E86.0 Dehydration; F17.210 Nicotine dependence, cigarettes, uncomplicated; Z98.51 Tubal ligation status; F90.9 Attention-deficit hyperactivity disorder, unspecified type; Z79.899 Other long term (current) drug therapy
CPT/HCPCS: 71046; 80053; 81001; 81025; 82550; 83690; 84484; 85025; 87086; 87088; 87631; 93005; 96361; 96374; 96375; 99282; J2405

== ENCOUNTER → 2024-08-23 | Outpatient (CLI) | payer MEDICARE, MEDICAID, SELFPAY ==
--- NOTE | 2024-08-23 10:45 | RAD_ITS ---
EXAM: Right foot radiographs CLINICAL HISTORY: Pain, injury COMPARISON: None TECHNIQUE: Three views of the right foot FINDINGS: See impression RAD/Foot min 3 Views IMPRESSION: Negative for acute displaced fracture or malalignment. Reading Location: [id number]
== END | disposition home or self-care (01) ==
LOC: RAD 10:31
PROVIDERS: PCP Nurse Practitioner Family; Referring Provider Nurse Practitioner Family; Visit Provider Nurse Practitioner Family
DX: M54.50 Low back pain, unspecified (principal)
CPT/HCPCS: 73630